=== PATIENT | female | born 1955 | race Caucasian/White ===

== ENCOUNTER 2023-09-23 09:38 | Outpatient (RCR) | payer OTHER, SELFPAY | END 2023-09-23 23:59 | disposition home or self-care (01) | LOC: RST 09:38 | PROVIDERS: ATTENDING PHYSICIAN Physician Assistant Medical | DX: I63.9 Cerebral infarction, unspecified (principal); I69.321 Dysphasia following cerebral infarction; I69.318 Other symptoms and signs involving cognitive functions following cerebral infarction; I69.398 Other sequelae of cerebral infarction; I69.310 Attention and concentration deficit following cerebral infarction; R26.89 Other abnormalities of gait and mobility | CPT/HCPCS: 92507; 97110; 97129; 97130; 97530; 97537 ==

== ENCOUNTER 2023-10-23 06:45 | Outpatient (RCR) | payer OTHER, SELFPAY | END 2023-10-23 23:59 | disposition home or self-care (01) | LOC: RST 06:45 | PROVIDERS: ATTENDING PHYSICIAN Physician Assistant Medical | DX: I69.321 Dysphasia following cerebral infarction (principal); I69.318 Other symptoms and signs involving cognitive functions following cerebral infarction; I69.310 Attention and concentration deficit following cerebral infarction; Z73.6 Limitation of activities due to disability | CPT/HCPCS: 92507; 97110; 97129; 97130; 97530; 97537 ==

== ENCOUNTER 2023-11-18 10:15 | Outpatient (RCR) | payer OTHER, SELFPAY | END 2023-11-18 13:41 | disposition home or self-care (01) | LOC: RST 10:15 | PROVIDERS: ATTENDING PHYSICIAN Physician Assistant Medical | DX: I63.9 Cerebral infarction, unspecified (principal); I69.318 Other symptoms and signs involving cognitive functions following cerebral infarction; I69.321 Dysphasia following cerebral infarction; I69.351 Hemiplegia and hemiparesis following cerebral infarction affecting right dominant side; I69.310 Attention and concentration deficit following cerebral infarction; I69.393 Ataxia following cerebral infarction; I69.311 Memory deficit following cerebral infarction; Z73.6 Limitation of activities due to disability | CPT/HCPCS: 92507; 97129; 97130 ==

== ENCOUNTER 2024-04-23 09:41 | Outpatient (RCR) | payer OTHER, SELFPAY | END 2024-04-23 23:59 | disposition home or self-care (01) | LOC: RST 09:41 | PROVIDERS: ATTENDING PHYSICIAN Specialist; FAMILY PHYSICIAN Physician Assistant Medical | DX: I63.312 Cerebral infarction due to thrombosis of left middle cerebral artery (principal); R41.841 Cognitive communication deficit; R47.02 Dysphasia | CPT/HCPCS: 96125; 97129; 97130 ==

== ENCOUNTER 2024-05-24 10:49 | Outpatient (RCR) | payer OTHER, SELFPAY | END 2024-05-24 23:59 | disposition home or self-care (01) | LOC: ROT 10:49 | PROVIDERS: ATTENDING PHYSICIAN Specialist; FAMILY PHYSICIAN Physician Assistant Medical | DX: M25.531 Pain in right wrist (principal); Z73.6 Limitation of activities due to disability | CPT/HCPCS: 96125; 97018; 97110; 97129; 97130; 97140; 97166; 97535 ==

== ENCOUNTER → 2024-05-28 07:00 | Outpatient (REF) | payer OTHER, SELFPAY | LOC: PAVMRI 07:00 | PROVIDERS: ATTENDING PHYSICIAN Internal Medicine Rheumatology; FAMILY PHYSICIAN Physician Assistant Medical | DX: L40.50 Arthropathic psoriasis, unspecified (principal); M25.531 Pain in right wrist | CPT/HCPCS: 73221 ==

== ENCOUNTER 2024-09-11 20:49 | Inpatient (IN) | payer OTHER, SELFPAY ==
[2024-09-11 15:57] VITALS: BP 99/68
[2024-09-11 16:00] VITALS: BP 99/68
[2024-09-11 16:14] LABS: Glucose - Point of Care 119 mg/dl (70-99)
--- NOTE | 2024-09-11 16:14 | ED.CVA ---
History of Present Illness
General
Chief Complaint: CVA/TIA Symptoms
Source: patient and family
Time Seen by Provider: 09/11/24 16:03
Onset of Stroke Symptoms
Onset of symptoms known: Yes
Date of onset of symptoms: 09/11/24
Time of onset of symptoms: 15:00
History of Present Illness
History of Present Illness:
This patient is a 69-year-old female who is feeling her usual self until approximately 3 PM when she stood up and started feel disoriented. She noted that she felt weak on the right side as well as feeling sweaty and hot. Her caregiver noticed
that she seemed 'disoriented and cloudy and her speech seemed delayed. She was brought to an urgent care, noted to have a 'low-grade fever' and medics were called to transfer patient here. Daughter is at bedside and very knowledgeable about
patient. She states that at baseline she has mild cognitive impairment and short-term memory but today, after 3 PM, she just seems more forgetful and her speech delayed but not slurred. She also had trouble standing. On exam here, patient is
awake alert oriented, and denies any specific complaints. She denies visual changes, numbness, tingling, weakness, or other complaints. She denies recent illness or fever, chest pain, shortness of breath.
Past History
Past History
ED Past Medical History: Asthma, Cancer (Breast carcinoma), CVA, HTN, Hypercholesterolemia, NIDDM, Psychiatric (Major depression) and Other (Psoriatic arthritis, rheumatoid arthritis, concussion August 2022, right knee hematoma)
ED Past Surgical History: Orthopedic (Rotator cuff repair 2011) and Other (Right mastectomy, inguinal herniorrhaphy)
Social History
Tobacco: Other (Distant smoker)
Alcohol: Chronic alcoholic
Drug: None
Personal:
Living: with family
Family History
Family History: Diabetes and Cancer
Phy Exam
Physical Exam
Physical Exam:
GENERAL: Alert , in no apparent distress
EYE: pupils equal and reactive
NECK: Supple, no significant adenopathy.
ENT: o/p clr, mmm.
CARDIAC: Regular rate and rhythm .
LUNGS: Clear breath sounds bilaterally, no acute respiratory distress, no wheezes/rales/rhonchi
ABDOMEN: Soft, without focal tenderness, no r/g, no cvat
NEUROLOGICAL: Alert and oriented to person and place but not month which is typical for her, cranial nerves II through XII intact, [id number] normal, motor 5 out of 5, sensory intact, mild aphasia (baseline)
SKIN: Warm and dry, skin intact.
MUSCULOSKELETAL: No edema, well perfused.
PSYCH: Normal and appropriate interaction.
NIH Stroke Score
Level of Consciousness: 0 - Alert
LOC questions: 1-Answers one correctly
LOC Commands: 0-Performs both correctly
Best Gaze: 0-Normal
Visual Gonzalez: 0=Normal, no visual loss
Facial palsy: 0=Normal, symmetrical
Motor - Right Arm: 0=No drift 10 seconds
Motor - Left Arm: 0=No drift 10 seconds
Motor - Right Le-No drift 5 seconds
Motor - Left Le-No drift 5 seconds
Limb Ataxia: 0-Absent
Sensation: 0-Normal
Best Language: 1-Mild aphasia
Dysarthria: 1-Mild slurring
Extinction and Inattention: 0-No abnormality
Total Score:: 3
Course
Orders/Labs/Results
Orders:
Orders
09/11/24 16:01
EKG [Electrocardiogram (*1)] Urgent
Reason for Study: Fatigue / Weakness
EKG- Treatment ONCE
09/11/24 16:02
Alcohol Urgent
Cardiovascular Evaluation Urgent
Comment: ADDON
Complete Blood Count/With Diff Urgent
Comprehensive Metabolic Panel Urgent
Glycohemoglobin (HgbA1c) Urgent
09/11/24 16:10
CT HEAD STROKE ALERT W/o Cont Stat
Comment:
Reason For Exam: aphasia, weakness
09/11/24 16:17
EKG- Treatment ONCE
09/11/24 16:38
Add On- LAB Urgent
Tests Added?: Alcohol
09/11/24 16:41
CT Head & Neck Angio W/wo IV Urgent
Comment:
Reason For Exam: aphasia
09/11/24 19:28
Hydrocodone 7.5/APAP 325 [[place] 7.5/325] 1 tablet PO NOW STA
09/11/24 20:25
Admit/Transfer Patient As Directed
Co-Sign Provider:
Level of Care: Inpatient admission
Assign to:: Telemetry
Physician / Group: Hospitalist
Diagnosis: Change of mental status
Reason for Telemetry: CVA/TIA
Date to Stop Telemetry: 09/14/24
Time to Stop Telemetry: 11:00
Reason for Hospitalization: Change of mental status
Expected length of stay greater than two midnights?: Yes
ELOS- Estimated Length of Stay in days: 3
I certify the patient meets the requirements for IP care: Yes
PRN Pain Medication Management As Directed
May give lesser potent ordered pain med per pt: Yes
preference::
Protocol:: Medication orders for pain may be administered in a
manner that supports deferring to patient preference
when the pt is:
- Requesting an ordered lesser potent pain medication.
Least to most potent pain medications are defined
as: acetaminophen < NSAID < tramadol < opioids
(morphine, oxycodone, hydromorphone).
- Requesting a lesser dose of the same medication IF
ORDERED.
- Requesting a less intrusive route of administration
if both routes are prescribed by the provider (PO <
IV).
09/11/24 20:27
Code Status As Directed
Resuscitation Status: Full Code
09/11/24 20:35
Fentanyl, Urine Routine
Urinalysis Reflex To Culture Urgent
Date Specimen was Collected: 09/11/24
Time Specimen was Collected: 20:33
Urine Drug Abuse Screen Routine
Date Specimen was Collected: 09/11/24
Time Specimen was Collected: 20:33
09/11/24 22:57
Acetaminophen [Tylenol/Feverall] 650 mg RECTAL Q4HPRN PRN
Acetaminophen [Tylenol] 650 mg PO Q4HPRN PRN
Donepezil HCl [Aricept] 10 mg PO HS
Gabapentin [Neurontin] 400 mg PO TID
Hydrocodone 7.5/APAP 325 [[place] 7.5/325] 1 tablet PO TIDPRN PRN
Thc See Dose Instructions TOPICAL TIDPRN PRN
09/11/24 22:57
Case Management Consult ONCE
Case Management Consult: Discharge Planning
Comment: stroke/tia
DIETARY CONSULT Routine
Reason for Consult: stroke/TIA
Show Design Supervisor Urgent
Activity As Directed
Activity Level: With Assistance
NIH Stroke Scale As Directed
Directions: Per protocol
Comment: every shift and with any change in condition or mental status
Neurological Checks As Directed
Frequency: q4h
Additional Instructions:: q4h x 24h upon admission to the floor, then qshift & with any change in condition
and mental status
Patient Education As Directed
Type: Stroke education packet
Comment: provide to patient and family
Pneumatic Compression Sleeves As Directed
Type: Knee high
Swallow Screening CVA/TIA ONLY As Directed
Comment: NPO until swallowing screening completed
If patient FAILS swallow screening:: NPO, Speech Therapy consult, Aspiration Precautions
If patient PASSES swallow screening, diet:: Regular
Above diet order entered?: Yes- passed screening
Vital Signs As Directed
Frequency: Per unit guidelines
Ot Eval And Treat Routine
Pt Eval And Treat Routine
Treatment: eval gait
Activity Level: With Assistance
Speech Therapy Eval & Treat Routine
DX Deep Vein Thrombosis Video Routine
09/12/24 06:46
MR Brain Without Contrast Routine
Reason For Exam: aphasia
OK for patient to be off Cardiac Monitoring for MRI: No
Recent pill cam endoscopy?: No
09/12/24 07:21
Basic Metabolic Panel IN AM
Cardiovascular Evaluation IN AM
Complete Blood Count/No Diff IN AM
09/12/24 08:00
Amlodipine [Norvasc] 5 mg PO DAILY
Aspirin Low Dose EC [Aspir Low (Enteric Coated)] 81 mg PO DAILY
Cholecalciferol (Vitamin D3) [VITAMIN D3 (cholecalciferol)] 50 mcg PO DAILY
Cyanocobalamin [Vitamin B-12] 1,000 mcg PO DAILY
Escitalopram Oxalate [Lexapro] 20 mg PO DAILY
METFORMIN HCl [Glucophage] 1,000 mg PO DAILY
09/12/24 18:00
Atorvastatin [Lipitor] 80 mg PO QPM
METFORMIN HCl [Glucophage] 500 mg PO QPM
09/14/24 11:00
DC Protocol for Telemetry ONCE
Abnormal Lab Results
09/11/24 09/11/24 09/11/24
16:02 16:12 20:35
WBC 13.5 H 10^3/uL
(4.8-10.8)
MCHC 31.6 L g/dL
(33.0-37.0)
Abs Immat Gran (auto) 0.1 H 10^3/uL
(0-0.05)
Absolute Neuts (auto) 11.7 H 10^3/uL
(1.4-6.5)
Absolute Lymphs (auto) 0.5 L 10^3/uL
(1.2-3.4)
Absolute Monos (auto) 1.1 H 10^3/uL
(0.1-0.6)
Neutrophils % 86.9 H %
(42.2-75.2)
Lymphocytes % 3.5 L %
(20.5-51.1)
BUN 22 H mg/dl
(7-17)
Glucose 128 H mg/dl
(70-99)
Hemoglobin A1c 6.5 H %
(4.0-5.6)
Urine Opiates Screen Positive H
(Negative)
POC Glucose 119 H mg/dl
(70-99)
09/11/24 16:02
09/11/24 16:02
Vital Signs
Initial and Last Documented VS:
Initial Vital Signs
Temp Pulse Resp BP Pulse Ox
98.0 F 103 12 99/68 95
09/11/24 15:57 09/11/24 15:57 09/11/24 15:57 09/11/24 15:57 09/11/24 15:57
Last Documented Vital Signs
Temp Pulse Resp BP Pulse Ox
98.6 F 79 18 122/73 98
09/12/24 07:35 09/12/24 10:58 09/12/24 07:35 09/12/24 10:58 09/12/24 07:35
*Critical Care Note
Total Time (30-74mins, 75-104mins- exclusive of procedures): 30
Update Note
Update Note:
Patient presents to the Emergency Department with weakness and disorientation
Number and Complexity of Problems Addressed at the Encounter
� Chronic conditions affecting care:
� Acute Exacerbation and/or Progression of Chronic Illness:
� Differential Diagnosis includes: But not limited to infection, TIA, CVA, electrolyte disorder, etc. etc.
Amount and/or Complexity of Data to be Reviewed and Analyzed
� I performed an independent evaluation of and my interpretation is:
EKG:Read by me, sinus tachycardia, normal axis, no acute ischemia
CT:Aspect score: 10
No intracranial hemorrhage
Atrophy with nonspecific white matter changes
Full report to follow (LISSA dalal)
Xrays:
Laboratory Studies:Nonspecific leukocytosis
Other:
� Review of other/old records reveals:
� Clinical information was obtained by an independent historian: Daughter who is bedside
� Prescriptions/Medications Considered but not given:
� Further testing considered but not performed:
Risk of Complications and/or Morbidity or Mortality of Patient Management
� Social determinants of health affecting care:
� Discussion with other providers (PCP, Hospitalists, Consultants, etc):
� Escalation of care including admission/observation vs risk of discharge considered:Case d/w daughter as pt goes to CAT scan. She is aware that patient is not a candidate for tPA or other intervention acutely. Case also
discussed with neurology who asked that I add a UDS and alcohol to her testing. Does not recommend adding Plavix at this time until she reviews platelet count pending. She appreciated mild dysarthria which I did not appreciate, and may be
intermittent. Her mild aphasia is baseline as per daughter. Given lack of NIH of greater than 6 or newly disabling symptoms he is not a candidate for thrombolytics at this time. Patient will be admitted for further workup.
ED Attending Note
-
Portions of this chart may have been created with voice recognition software.� Occasional wrong word or��sound alike� substitutions may have occurred due to the inherent limitations of voice recognition software.
Discharge Plan
Departure
Patient Disposition: Admit
Date of Disposition: 09/11/24
Time of Disposition: 17:17
Admit to: Telemetry
Presentation/result/management discussed w/ accepting MD/DO: Hospitalist
Condition: Good
Discharge Problem:
Encephalopathy
Interventions
Interventions:
*Risk Screen - Suicide Last Done: 09/12/24 02:08
*General Assessment Last Done: 09/11/24 16:03
*Neglect/Abuse Screening Last Done: 09/11/24 16:03
*ED COVID-19 Vaccine History Last Done: 09/12/24 02:08
*Nursing Disposition Last Done: 09/11/24 23:08
ED- Pulmonary Assessment Last Done: 09/11/24 16:05
ED- Neurological Assessment Last Done: 09/11/24 16:05
ED- Cardiac Assessment Last Done: 09/11/24 16:05
ED Swallowing Screen Last Done: 09/11/24 17:34
Discharge Date and Time
Discharge Date/Time: 09/11/24 23:09
[2024-09-11 16:18] LABS: % Basophils 0.5 % (0-2); % Eosinophils 0.7 % (0-6); % Immature Granulocytes 0.4 % (0-0.5); % Lymphocytes 3.5 % (20.5-51.1); % Neutrophils 86.9 % (42.2-75.2); Absolute Basophils 0.1 10^3/uL (0-0.2); Absolute Eosinophils 0.1 10^3/uL (0-0.7); Absolute Immature Granulocytes 0.1 10^3/uL (0-0.05); Absolute Lymphocytes 0.5 10^3/uL (1.2-3.4); Absolute Monocytes 1.1 10^3/uL (0.1-0.6); Absolute Neutrophils 11.7 10^3/uL (1.4-6.5); Hematocrit 39.5 % (37.0-47.0); Hemoglobin 12.5 g/dL (12.0-16.0); Mean Corp Hgb Conc. 31.6 g/dL (33.0-37.0); Mean Corpuscular Hgb 29.1 pg (27.0-31.0); Mean Corpuscular Volume 92.1 fL (81.0-99.0); Mean Platelet Volume 9.2 fL (7.4-10.4); Nucleated Red Blood Cells % 0 %; Platelet Count 302 10^3/uL (130-400); Red Blood Cell Count 4.29 10^6/uL (4.20-5.40); Red Cell Dist. Width 12.9 % (11.5-14.5); White Blood Cell Count 13.5 10^3/uL (4.8-10.8)
[2024-09-11 16:33] LABS: ALT (SGPT) 21 U/L (0-35); AST (SGOT) 35 U/L (14-36); Albumin 4.5 g/dl (3.5-5.0); Alkaline Phosphatase 59 U/L (38-126); Blood Urea Nitrogen 22 mg/dl (7-17); Calcium 9.2 mg/dl (8.4-10.2); Carbon Dioxide 28 mmol/L (22-30); Chloride 99 mmol/L (98-107); Glucose 128 mg/dl (70-99); Potassium 4.1 mmol/L (3.5-5.1); Sodium 137 mmol/L (135-145); Total Bilirubin 0.7 mg/dl (0.2-1.3); Total Protein 6.9 g/dl (6.3-8.2); eGFR > 60.00
--- NOTE | 2024-09-11 16:37 | CON.NEURO ---
Consultation
Order
Date of Consultation: 09/11/24
Requesting Provider: Dot Still MD
Reason for Consult: Stroke alert
Called in: 16:10
Neurology Consultation Note.
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
According to patient's daughter the patient became confused during a conversation yesterday around 11:30 AM. She subsequently went home, slept, and continued to feel the same this morning. Today, the patient's caregiver noticed chills, significant
weakness, and inability to ambulate to the bathroom. Flynn Peterson reports no complaints. She is not sure of why she is in the hospital
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 Souza.
Winkler has been experiencing pain in her right wrist and is under pain management at [facility]
ER VS: 99/68, 103, afebrile
EKG: Sinus tachycardia, QTc Int : 441 ms
PDMP: Hydrocodone-Acetamin 7.5-325 62 tabs filled in on 08/29/2024, 28 tabs filled in on 08/29/2024 90 pills filled in on 07/31/2024, 07/02/2024
Labs: Glucose�128, normal sodium, WBCs�13.5, platelets�302,
CT head wo contrast�no acute infarcts, mild to moderate generalized atrophy
CTA head/neck�pending
PMH: R breast cancer, left lentiform nucleus stroke with residual aphasia (05/2023), HTN, DLP, DM, opioid dependence, polyneuropathy, EPIFANIO, Psoriatic arthritis, OA
PSH: R mastectomy; Right shoulder arthroscopy with arthroscopic labral debridement, rotator cuff repair and no subacromial decompression, inguinal hernia repair,
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
FH: Mother�dementia in her 80s
All:NKDA
ROS: Constitutional: Negative. Negative for chills, fever and unexpected weight change.
HENT: Negative for ear pain, hearing loss, tinnitus and trouble swallowing.
Eyes: Negative. Negative for photophobia, pain and visual disturbance.
Respiratory: Negative for cough, choking and shortness of breath.
Cardiovascular: Negative for chest pain, palpitations and leg swelling.
Gastrointestinal: Negative for abdominal pain and vomiting.
Endocrine: Negative. Negative for cold intolerance.
Genitourinary: Negative for dysuria, flank pain and urgency.
Musculoskeletal: Positive for right wrist pain
Skin: Negative for rash.
Allergic/Immunologic: Negative. Negative for immunocompromised state.
Neurological: Positive for chronic aphasia, change in ambulation
Psychiatric/Behavioral: Positive for worsening of chronic confusion
General: Well developed. In no acute distress.
Cardio: Regular rate and rhythm without murmur. Extremities are without cyanosis or edema.
Neuro:
Mental Status: Alert, oriented to name, location. Follows simple requests across midline. Mild expressive aphasia. Comprehension is intact. Nonfluent. No hemineglect.
Cranial Nerves: Pupils are equally round and reactive to light. EOMs full. Visual stringer full to confrontation. No ptosis. No nystagmus. V1-V3 intact to light touch and pinprick bilaterally, symmetric. Face symmetric. Normal hearing AU. The
palate elevated well. SCMs and traps 5/5. Tongue midline. Mild dysarthria.
Motor: Normal bulk and tone. No pronator or arm drift. Strength 5/5 throughout. No clonus.
Sensory: Negative extinction to DSS
Coordination: No dysmetria
Gait: deferred
Assessment and Plan:
I. Encephalopathy. Differential diagnosis includes toxic versus vascular versus nutrient degenerative. Not a candidate for IV thrombolysis due to lack of new focal deficits.
II. History of left lentiform nucleus stroke(2022)
III. Brain atrophy. Differential diagnosis posttraumatic, toxic, neurodegenerative.
-Continue Telemetry monitoring.
-Avoid cerebral hypoperfusion
-Brain MRI without epifanio
-Please follow-up CTA results
-Please check EtOH level, urine tox, UA urine culture
-Start thiamine
-Continue aspirin 81 mg once a day
-PT.
-DVT prophylaxis.
I personally reviewed all radiology and labs along with past medical records pertinent to current medical problems. Total time spent in patient care is 60 minutes.
Thank you for allowing us to participate in the care of this patient. We will continue to follow. Please do not hesitate to contact us with any questions or concerns.
Subjective/Objective
Subjective Data
Date of Service: September 11, 2024
Objective Data
Vital Signs
Temp Pulse Resp BP Pulse Ox
36.7 C 99 20 99/68 98
09/11/24 15:57 09/11/24 16:04 09/11/24 16:04 09/11/24 16:00 09/11/24 16:05
Lab Results
09/11/24 16:02
09/11/24 16:02
Sodium 137 mmol/L (135-145) 09/11/24 16:02
Potassium 4.1 mmol/L (3.5-5.1) 09/11/24 16:02
BUN 22 mg/dl (7-17) H 09/11/24 16:02
Glucose 128 mg/dl (70-99) H 09/11/24 16:02
Calcium 9.2 mg/dl (8.4-10.2) 09/11/24 16:02
Patient Allergies
No Known Allergies Allergy (Unverified 06/21/23 19:12)
Medications
-
Home Medications
�Medication �Instructions �Recorded
amlodipine 2.5 mg tablet 5 mg PO DAILY Blood Pressure 10/30/11
escitalopram oxalate 5 mg tablet 5 mg PO DAILY Mental Health/Anxiety 06/22/23
(Lexapro)
propranolol 60 mg capsule,24 60 mg PO HS Blood Pressure 06/22/23
hr,extended release (Inderal LA)
atorvastatin 40 mg tablet 80 mg (2 x 40 mg) PO QPM Heart 06/26/23
disease/condition #30 tabs
clopidogrel 75 mg tablet 75 mg PO DAILY #20 tabs 06/26/23
metformin 500 mg tablet 500 mg PO BID@0800,1700 #60 tabs 06/26/23
Vital Signs and Labs
-
Vital Signs and Labs:
Vital Signs
Temp Pulse Resp BP Pulse Ox
36.7 C 99 20 99/68 98
09/11/24 15:57 09/11/24 16:04 09/11/24 16:04 09/11/24 16:00 09/11/24 16:05
Lab Results
09/11/24 16:02
09/11/24 16:02
Sodium 137 mmol/L (135-145) 09/11/24 16:02
Potassium 4.1 mmol/L (3.5-5.1) 09/11/24 16:02
BUN 22 mg/dl (7-17) H 09/11/24 16:02
Glucose 128 mg/dl (70-99) H 09/11/24 16:02
Calcium 9.2 mg/dl (8.4-10.2) 09/11/24 16:02
Home Medications
-
Home Medications
Thc 1 applic topical TIDPRN PRN arthirits 09/11/24
amlodipine 5 mg tablet 5 mg PO DAILY 09/11/24
aspirin 81 mg tablet,delayed release 81 mg PO DAILY 09/11/24
atorvastatin 80 mg tablet 80 mg PO QPM 09/11/24
cholecalciferol (vitamin D3) 50 mcg (2,000 unit) tablet (Vitamin D3) 50 mcg PO DAILY 09/11/24
cyanocobalamin (vitamin B-12) 1,000 mcg tablet 1,000 mcg PO DAILY 09/11/24
donepezil 10 mg tablet 10 mg PO HS 09/11/24
escitalopram oxalate 20 mg tablet 20 mg PO DAILY 09/11/24
gabapentin 400 mg capsule 400 mg PO TID 09/11/24
hydrocodone 7.5 mg-acetaminophen 325 mg tablet 1 tab PO TIDPRN PRN severe pain 09/11/24
metformin 500 mg tablet 1,000 mg PO DAILY 09/11/24
metformin 500 mg tablet 500 mg PO QPM 09/11/24
[2024-09-11 17:00] VITALS: BP 108/72
[2024-09-11 17:33] LABS: Alcohol None Detected
[2024-09-11 18:00] VITALS: BP 93/73
[2024-09-11 18:40] LABS: HDL Cholesterol 84 mg/dl; LDL Cholesterol, Calculated 59 mg/dl; Total Cholesterol 157 mg/dl (50-199); Triglyceride 71 mg/dl (10-149); Very Low Density Lipoprotein 14 mg/dl (0-30)
[2024-09-11] MEDS: NORCO 7.5/325 1 TABLET PO (19:33)
--- NOTE | 2024-09-11 19:50 | HPS.HSE ---
Family Physician
-
Family Physician: Yareli Mckeon
Chief Complaint
-
Confusion
History of Present Illness
69-year-old woman who was feeling her usual self until approximately 3 PM when she stood up and started feel disoriented. She felt weak on the right side as well as feeling sweaty and hot. Her caregiver noticed that she seemed 'disoriented and
cloudy and her speech seemed delayed. She was brought to an urgent care, noted to have a 'low-grade fever' and medics were called to transfer patient here. Daughter states that at baseline she has mild cognitive impairment and short-term memory
but today, after 3 PM, she just seems more forgetful and her speech delayed but not slurred. She also had trouble standing. Patient now is awake alert oriented, and denies any specific complaints. She denies visual changes, numbness, tingling,
weakness, or other complaints. She denies recent illness or fever, chest pain, shortness of breath. CT in ED showed:
There are no acute abnormalities.
There is no intracranial hemorrhage.
There is no edema or mass effect to suggest neoplasm.
There are no abnormal extra-axial fluid collections.
There are no focal areas of diminished density to suggest infarct.
There is diffuse cortical atrophy as evidenced by prominence of the CSF spaces.
IMPRESSION:
There are no acute intracranial abnormalities.
There is moderate diffuse cortical atrophy with moderate nonspecific white matter changes as described above.
Patient seen by neurology in the ED. Neurology stated:
'I. Encephalopathy. Differential diagnosis includes toxic versus vascular versus nutrient degenerative. Not a candidate for IV thrombolysis due to lack of new focal deficits.
II. History of left lentiform nucleus stroke(2022)
III. Brain atrophy. Differential diagnosis posttraumatic, toxic, neurodegenerative.
-Continue Telemetry monitoring.
-Avoid cerebral hypoperfusion
-Brain MRI without more
-Please follow-up CTA results
-Please check EtOH level, urine tox, UA urine culture
-Start thiamine
-Continue aspirin 81 mg once a day
-PT.
-DVT prophylaxis.'
Patient continued to be non-focal and at baseline during my exam.
Medical History
Past Medical History
Past Medical History: Reports Other
Additional Past Medical History:
Asthma,
Breast carcinoma
CVA,
essential HTN,
Hypercholesterolemia,
NIDDM,
Major depression
Psoriatic arthritis,
rheumatoid arthritis,
concussion August 2022,
right knee hematoma
Rotator cuff repair 2011
Right mastectomy,
inguinal herniorrhaphy
Atrophic vaginitis
Primary osteoarthritis of both knees
Gait abnormality
Foot drop, left
Neuropathic pain
Cognitive impairment
Fatty liver
Low vitamin D level
Urgency incontinence
Past Surgical History: Reports Other
Additional Past Surgical History:
See above
Social History
Tobacco: Non-smoker
Alcohol: None
Drug: None
Personal:
Living: With Family
Family History
Family History: Not pertinent
Allergies / Home Medications
Allergies reflects when Allergies were last updated in [employer].
Home Medications with original date entered in [employer]
Allergy/Medication List:
Allergies
Allergy/AdvReac Type Severity Reaction Status Date / Time
No Known Allergies Allergy Unverified 06/21/23 19:12
Home Medications
Thc 1 applic topical TIDPRN PRN arthirits 09/11/24
amlodipine 5 mg tablet 5 mg PO DAILY 09/11/24
aspirin 81 mg tablet,delayed release 81 mg PO DAILY 09/11/24
atorvastatin 80 mg tablet 80 mg PO QPM 09/11/24
cholecalciferol (vitamin D3) 50 mcg (2,000 unit) tablet (Vitamin D3) 50 mcg PO DAILY 09/11/24
cyanocobalamin (vitamin B-12) 1,000 mcg tablet 1,000 mcg PO DAILY 09/11/24
donepezil 10 mg tablet 10 mg PO HS 09/11/24
escitalopram oxalate 20 mg tablet 20 mg PO DAILY 09/11/24
gabapentin 400 mg capsule 400 mg PO TID 09/11/24
hydrocodone 7.5 mg-acetaminophen 325 mg tablet 1 tab PO TIDPRN PRN severe pain 09/11/24
metformin 500 mg tablet 1,000 mg PO DAILY 09/11/24
metformin 500 mg tablet 500 mg PO QPM 09/11/24
Review of Systems
-
History Source: Patient
A 12 point ROS was completed and negative except as noted: Yes
Physical Exam
Vital Signs
Vital Signs
Temp Pulse Resp BP Pulse Ox
98.0 F 91 16 93/73 98
09/11/24 15:57 09/11/24 19:30 09/11/24 18:30 09/11/24 18:00 09/11/24 16:05
Physical Exam
General: Well Developed, Well Nourished, No Apparent Distress, Comfortable and Conversant
HEENT: NormoCephalic, Atraumatic, Nose Appears Normal and Ears Appear Normal
Respiratory: Clear
Cardiac: S1/S2 and Regular Rhythm
GI: Soft, Non Tender and Non Distended
Musculoskeletal: No Clubbing, No Cyanosis and No Edema
Skin: Warm and Dry; No Rash or Jaundice
Neuro: Awake, Alert, Oriented and AO x 3
Psych: Calm
Laboratory Results
-
09/11/24 16:02
09/11/24 16:02
Laboratory Results
Total Bilirubin 0.7 mg/dl (0.2-1.3) 09/11/24 16:02
AST 35 U/L (14-36) 09/11/24 16:02
ALT 21 U/L (0-35) 09/11/24 16:02
Alkaline Phosphatase 59 U/L (38-126) 09/11/24 16:02
Data Reviewed
-
Lab Data: Labs Reviewed by me
Impression/Plan
-
IMPRESSION:
69 woman with change of mental status and concern for a stroke.
PLAN:
1. Concern for stroke. No symptoms at this point. Patient seen by neurology. Neurology states:
'I. Encephalopathy. Differential diagnosis includes toxic versus vascular versus nutrient degenerative. Not a candidate for IV thrombolysis due to lack of new focal deficits.
II. History of left lentiform nucleus stroke(2022)
III. Brain atrophy. Differential diagnosis posttraumatic, toxic, neurodegenerative.
-Continue Telemetry monitoring.
-Avoid cerebral hypoperfusion
-Brain MRI without more
-Please follow-up CTA results
-Please check EtOH level, urine tox, UA urine culture
-Start thiamine
-Continue aspirin 81 mg once a day
-PT.
-DVT prophylaxis.'
2. BUN/Creat > 20, 22/0.7, likely dehydration
Gentle IV fluids overnight
Dehydration might have activated old stroke symptoms
3. High WBC at 13.5 - on chronic steroids
This is likely from prednisone
No signs of infection
DVTp: SCD
Full code
[2024-09-11 20:49] LABS: Urine Albumin Negative (Neg - Trace); Urine Bilirubin Negative (Negative); Urine Character Clear (Clear); Urine Color Yellow; Urine Glucose Negative (Negative); Urine Ketone Negative (Negative); Urine Leukocyte Negative (Negative); Urine Nitrite Negative (Negative); Urine Occult Blood Negative (Negative); Urine Specific Gravity 1.005 (<1.030); Urine Urobilinogen Negative (Neg - 1+); Urine pH 6.5 (5.0-9.0)
[2024-09-11 21:05] LABS: Amphetamines Negative (Negative); Barbiturates Negative (Negative); Benzodiazepines Negative (Negative); Buprenorphine Negative (Negative); Cocaine Negative (Negative); Marijuana Negative (Negative); Methadone Negative (Negative); Methamphetamines Negative (Negative); Opiates Positive (Negative); Phencyclidine Negative (Negative); Tricyclic Antidepressants Negative (Negative)
[2024-09-11 21:25] LABS: Fentanyl, Urine Negative (Negative)
[2024-09-11 23:12] VITALS: BP 133/74; BMI 21.0
--- NOTE | 2024-09-11 23:12 | PTCARENOTE ---
Pt arrived from ED via stretcher was and pulled over to the bed. Pt is AAOx2, VSS, w/o complaints of pain. Pt is lethargic, tremulous, and unable to follow some commands. RN attempted NIH-7 1-mild slurring, 1- aphasia, 1-didn't know the month,
2-can't lift L leg, 2- can't lift R leg. ECG TECHNICIAN notified- no new orders at this time. Pt has call mayorga within reach.
[2024-09-12] VITALS (8 sets, daily range): BP systolic 103–143; BP diastolic 65–84; PULSE 86–89; O2SAT 94–96
[2024-09-12] MEDS: NEURONTIN PO (01:11)
[2024-09-12] MEDS: ARICEPT PO (01:11)
--- NOTE | 2024-09-12 01:57 | PTCARENOTE ---
Addendum entered by Irina Hinkle RN 09/12/24 05:43:
Pt tested positive for the flu and placed on droplet precautions. RN rechecked oral temp 98.8. Pt is slightly less lethargic. Pt has the call mayorga within reach.
Original Note:
Pt oral temp 102.8. RN took rectal temp 103.4. RN placed ice packs in both armpits. OLYA notified- ordered Of[facility].
[2024-09-12] MEDS: NSS 1000 IV (02:00)
[2024-09-12] MEDS: OFIRMEV 100 IV (02:45)
[2024-09-12 03:13] LABS: COVID-19 Antigen Negative (Negative)
--- NOTE | 2024-09-12 08:48 | W.PN.HOSP.TC ---
Today's Communication/Plan
-
Continue Tamiflu
Obtain PT OT eval
DC planning
Assessment / Plan
Assessment / Plan
Change in mental status more than baseline-suspect toxic encephalopathy with febrile illness and influenza A infection. CT head shows no evidence of acute intracranial abnormalities. Nonfocal grossly. Appreciate neurology input. Continue with
treatments of flu. Check PT eval today.
Acute influenza A infection-associated sepsis. Hypoxic. Clinically no evidence of pneumonia but will obtain at chest x-ray for baseline. Continue with Tamiflu. Continue with symptomatic treatments.
Diabetes mellitus-continue with metformin and sliding scale insulin
Hypertension-continue amlodipine
Hyperlipidemia-continue statin
Dementia on medication-patient confused but no agitation. Follow for any behavioral disturbances.
Full code
Discussed with the and updated the diagnosis and treatment and possibility of discharge later after seen by PT and chest x-ray.
Anticipated Discharge: Today
Subjective/Interval History
-
Date of Service: September 12, 2024
She is alert and oriented to place. Not oriented to day of the month or the year. She has mild cognitive impairment history.
No agitation.
Feels fatigued.
Denies any sore throat, cough, shortness of breath or chest pain.
No nausea vomiting.
Objective Data
-
Labs:
Laboratory Results
09/12/24
07:21
WBC Pending
Hgb Pending
Hct Pending
Plt Count Pending
Sodium Pending
Potassium Pending
Chloride Pending
Carbon Dioxide Pending
BUN Pending
Creatinine Pending
Glucose Pending
Calcium Pending
Vital Signs:
Vital Signs
Temp Pulse Resp BP Pulse Ox
98.6 F 79 18 122/73 98
09/12/24 07:35 09/12/24 07:35 09/12/24 07:35 09/12/24 07:35 09/12/24 07:35
I&O
09/11/24 09/12/24 09/13/24
06:59 06:59 06:59
Intake Total 0 / 0
Balance 0 / 0
Physical Exam
-
General: No Apparent Distress
Respiratory: Clear to Auscultation and Non Labored Respirations; Negative Accessory Resp Muscle Use
Cardiac: Regular Rhythm and S1/S2; Negative Tachycardic
GI: Soft and Nontender
Neuro: Awake, Alert and Oriented
Psych: Calm and Confused; Negative Agitated
Data Reviewed
-
Labs: Labs Reviewed by me
[2024-09-12 08:53] LABS: Hematocrit 31.6 % (37.0-47.0); Mean Corp Hgb Conc. 31.6 g/dL (33.0-37.0); Mean Corpuscular Hgb 29.2 pg (27.0-31.0); Mean Corpuscular Volume 92.4 fL (81.0-99.0); Red Blood Cell Count 3.42 10^6/uL (4.20-5.40); White Blood Cell Count 6.3 10^3/uL (4.8-10.8)
[2024-09-12 08:54] LABS: Blood Urea Nitrogen 14 mg/dl (7-17); Calcium 7.8 mg/dl (8.4-10.2); Carbon Dioxide 26 mmol/L (22-30); Chloride 103 mmol/L (98-107); Estimated Creatinine Clearance 88 ml/min; Glucose 110 mg/dl (70-99); HDL Cholesterol 61 mg/dl; LDL Cholesterol, Calculated 50 mg/dl; Potassium 3.5 mmol/L (3.5-5.1); Sodium 136 mmol/L (135-145); Total Cholesterol 120 mg/dl (50-199); Triglyceride 48 mg/dl (10-149); Very Low Density Lipoprotein 9 mg/dl (0-30); eGFR > 60.00
[2024-09-12 09:45] LABS: Glycohemoglobin (HgbA1c) 6.5 % (4.0-5.6)
[2024-09-12 09:47] LABS: Platelet Count 196 10^3/uL (130-400)
[2024-09-12] MEDS: NEURONTIN 400 MG PO ×3 (10:57→21:07)
[2024-09-12] MEDS: TAMIFLU 75 MG PO ×2 (10:57→20:04)
[2024-09-12] MEDS: GLUCOPHAGE 1000 MG PO (10:58)
[2024-09-12] MEDS: NORVASC 5 MG PO (10:58)
[2024-09-12] MEDS: VITAMIN D3 (cholecalciferol) 50 MCG PO (10:58)
[2024-09-12] MEDS: LEXAPRO 20 MG PO (10:58)
[2024-09-12] MEDS: ASPIR LOW (ENTERIC COATED) 81 MG PO (10:58)
[2024-09-12] MEDS: VITAMIN B-12 1000 MCG PO (10:59)
--- NOTE | 2024-09-12 11:49 | W.PN.NEURO.1 ---
Today's Communication / Plan
-
.
Subjective/Objective
Subjective Data
Date of Service: September 12, 2024
Neurology follow-up note.
24-hour events�febrile up to 39.7 C, transiently hypotensive down to 93/73.
Labs: Influenza A positive, Hb 12.5�10, UA�unremarkable, ua tox-pos for opioids, ETOh -neg.
Brain MRI wo more(08/25/2024) �no acute infarcts, stable minor chronic microvascular white matter ischemic disease. Atrophy.
According to patient's the was 'not as sharp 'even before head trauma in August 2022. The patient's family reportedly took financial affairs following head trauma after realizing that bills were 'piling up '. Mr. Winkler reports no
obvious changes in language following the stroke in May 2023. According to EMR 'daughter called to return for speech therapy reporting that patient has regressed since completing therapy'.
Ms. Winkler stopped driving about a year ago due to getting lost. Patient requires assistance with medication management for about a year due to forgetfulness.
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
PSH: R mastectomy; Right shoulder arthroscopy with arthroscopic labral debridement, rotator cuff repair and no subacromial decompression, inguinal hernia repair,
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
FH: Mother�dementia in her 80s
All:NKDA
ROS: Limited due to aphasia.
General: Well developed. In no acute distress.
Cardio: Regular rate and rhythm without murmur. Extremities are without cyanosis or edema.
Neuro:
Mental Status: Alert, oriented to name. Poor attention, moderate to severe expressive>receptive aphasia.
Cranial Nerves: Pupils are equally round and reactive to light. EOMs full. BTT BL No ptosis. No nystagmus. Face symmetric. Normal hearing AU. The palate elevated well. No dysarthria.
Motor: Moves all limbs antigravity symmetrically spontaneously.
Sensory: Limited exam due to poor attention.
Coordination: No tremors of myoclonic movements.
Gait: deferred
Assessment and Plan:
I. Encephalopathy(infectious, vascular, probably neurodegenerative), clinically worse
II. History of left lentiform nucleus stroke(2022).
III. Influenza A infection
-Avoid cerebral hypoperfusion
-Continue aspirin 81 mg once a day for secondary stroke prophylaxis
-Outpatient neurology follow-up in 1-2 days.
-I have left a message for Mr. Winkler's with a request to return my call to obtain cognitive and functional baseline.
-Please recall neurology services any questions or concerns.
-Outpatient follow-up with [facility].
I personally reviewed all radiology and labs along with past medical records pertinent to current medical problems. Total time spent in patient care is 40 minutes.
Thank you for allowing us to participate in the care of this patient. Please do not hesitate to contact us with any questions or concerns.
Objective Data
Vital Signs
Temp Pulse Resp BP Pulse Ox
37.0 C 79 18 122/73 98
09/12/24 07:35 09/12/24 10:58 09/12/24 07:35 09/12/24 10:58 09/12/24 07:35
Lab Results
09/12/24 07:21
09/12/24 07:21
Sodium 136 mmol/L (135-145) 09/12/24 07:21
Potassium 3.5 mmol/L (3.5-5.1) 09/12/24 07:21
BUN 14 mg/dl (7-17) 09/12/24 07:21
Glucose 110 mg/dl (70-99) H 09/12/24 07:21
Calcium 7.8 mg/dl (8.4-10.2) L 09/12/24 07:21
LDL Cholesterol, Calc 50 mg/dl 09/12/24 07:21
Ur Buprenorphine Cancelled 09/11/24 20:35
Ur Buprenorphine Negative (Negative) 09/11/24 20:35
Patient Allergies
No Known Allergies Allergy (Unverified 06/21/23 19:12)
Vital Signs and Labs
-
Vital Signs and Labs:
Vital Signs
Temp Pulse Resp BP Pulse Ox
37.0 C 79 18 122/73 98
09/12/24 07:35 09/12/24 10:58 09/12/24 07:35 09/12/24 10:58 09/12/24 07:35
Lab Results
09/12/24 07:21
09/12/24 07:21
Sodium 136 mmol/L (135-145) 09/12/24 07:21
Potassium 3.5 mmol/L (3.5-5.1) 09/12/24 07:21
BUN 14 mg/dl (7-17) 09/12/24 07:21
Glucose 110 mg/dl (70-99) H 09/12/24 07:21
Calcium 7.8 mg/dl (8.4-10.2) L 09/12/24 07:21
LDL Cholesterol, Calc 50 mg/dl 09/12/24 07:21
Ur Buprenorphine Cancelled 09/11/24 20:35
Ur Buprenorphine Negative (Negative) 09/11/24 20:35
Medications
-
Medications:
Generic Name Dose Route Start Last Admin
Trade Name Freq PRN Reason Stop Dose Admin
Acetaminophen 650 mg 09/11/24 22:57
Acetaminophen 650 Mg Rectal Suppository RECTAL 10/09/24 22:56
Q4HPRN PRN
RUIZ, mild pain, or temp >100.4F
Acetaminophen 650 mg 09/11/24 22:57
Acetaminophen 325 Mg Tablet PO 10/09/24 22:56
Q4HPRN PRN
RUIZ, mild pain, or temp >100.4F
Hydrocodone Bitart/Acetaminophen 1 tablet 09/11/24 22:57
Hydrocodone 7.5 Mg/Acetaminophen 325 Mg Tablet PO 09/25/24 22:56
TIDPRN PRN
severe pain
Amlodipine Besylate 5 mg 09/12/24 08:00 09/12/24 10:58
Amlodipine 5 Mg Tablet PO 10/10/24 07:59 5 mg
DAILY JOSÉ Administration
Aspirin 81 mg 09/12/24 08:00 09/12/24 10:58
Aspirin 81 Mg (Enteric Coated) Tablet PO 10/10/24 07:59 81 mg
DAILY JOSÉ Administration
Atorvastatin Calcium 80 mg 09/12/24 18:00
Atorvastatin (Lipitor) 80 Mg Tablet PO 10/10/24 17:59
QPM JOSÉ
Cholecalciferol 50 mcg 09/12/24 08:00 09/12/24 10:58
Cholecalciferol (Vitamin D3) 50 Mcg Tablet (2,000 Units) PO 10/10/24 07:59 50 mcg
DAILY JOSÉ Administration
Cyanocobalamin 1,000 mcg 09/12/24 08:00 09/12/24 10:59
Cyanocobalamin 1,000 Mcg Tablet PO 10/10/24 07:59 1,000 mcg
DAILY JOSÉ Administration
Donepezil HCl 10 mg 09/11/24 22:57 09/12/24 01:11
Donepezil Hcl 10 Mg Tablet PO 10/09/24 22:56 Not Given
HS JOSÉ
Escitalopram Oxalate 20 mg 09/12/24 08:00 09/12/24 10:58
Escitalopram 20 Mg Tablet PO 10/10/24 07:59 20 mg
DAILY JOSÉ Administration
Gabapentin 400 mg 09/11/24 22:57 09/12/24 10:57
Gabapentin 400 Mg Capsule PO 10/09/24 22:56 400 mg
TID JOSÉ Administration
Sodium Chloride 1,000 mls @ 75 mls/hr 09/12/24 01:15 09/12/24 02:00
Nss IV 09/12/24 14:34 1,000 mls
.[id number] JOSÉ Administration
Metformin HCl 1,000 mg 09/12/24 08:00 09/12/24 10:58
Metformin 500 Mg Regular Release Tablet PO 10/10/24 07:59 1,000 mg
DAILY JOSÉ Administration
Metformin HCl 500 mg 09/12/24 18:00
Metformin 500 Mg Regular Release Tablet PO 10/10/24 17:59
QPM JOSÉ
Thc Cream 1 Applic 0 applic 09/11/24 22:57
Top Tid Prn TOPICAL
Arthritis TIDPRN PRN
arthirits
Oseltamivir Phosphate 75 mg 09/12/24 04:16 09/12/24 10:57
Oseltamivir (Tamiflu) 75 Mg Capsule PO 09/17/24 03:54 75 mg
BID JOSÉ Administration
Sodium Chloride 0 flush 09/11/24 23:00
Sodium Chloride 0.9% (Flush) Syringe IV 10/09/24 22:59
PER PROTOCOL JOSÉ
Home Medications
-
Home Medications
Thc 1 applic topical TIDPRN PRN arthirits 09/11/24
amlodipine 5 mg tablet 5 mg PO DAILY 09/11/24
aspirin 81 mg tablet,delayed release 81 mg PO DAILY 09/11/24
atorvastatin 80 mg tablet 80 mg PO QPM 09/11/24
cholecalciferol (vitamin D3) 50 mcg (2,000 unit) tablet (Vitamin D3) 50 mcg PO DAILY 09/11/24
cyanocobalamin (vitamin B-12) 1,000 mcg tablet 1,000 mcg PO DAILY 09/11/24
donepezil 10 mg tablet 10 mg PO HS 09/11/24
escitalopram oxalate 20 mg tablet 20 mg PO DAILY 09/11/24
gabapentin 400 mg capsule 400 mg PO TID 09/11/24
hydrocodone 7.5 mg-acetaminophen 325 mg tablet 1 tab PO TIDPRN PRN severe pain 09/11/24
metformin 500 mg tablet 1,000 mg PO DAILY 09/11/24
metformin 500 mg tablet 500 mg PO QPM 09/11/24
--- NOTE | 2024-09-12 11:55 | PTOTSP ---
Speech therapy
Presentation: Patient shared she has difficulty with word-finding (expressive aphasia), slurred speech (dysarthria), and hoarse voicing. Her communicative abilities were mildly impacted by this but her speech was intelligible. Patient shared
cognition/ memory deficits which are new ~2 years.
Swallowing Function: SHEARING MACHINE OPERATOR observed patient with several bites of cracker, puree, and sips of thin liquids (straw) in which patient appeared to tolerate as she did not exhibit any overt clinical s/sx of aspiration or difficulty with mastication/
manipulation. Patient denied dysphagia complaints.
SHEARING MACHINE OPERATOR observed RN administer medications whole with thin liquids in which patient appeared to tolerate.
Recommendations:
1) Regular consistency solids and thin liquids
2) Aspiration precautions
3) medications as tolerated
4) speech and language evaluation
5) cognitive evaluation
Plan: SHEARING MACHINE OPERATOR will continue to follow; pending hospitalization.
[2024-09-12] MEDS: NORCO 7.5/325 1 TABLET PO (14:07)
--- NOTE | 2024-09-12 16:32 | CM ---
Alert awake oriented patient who lives with her Ted who lives in a 1 story home with 2 steps to enter.She is independent in driving and in all activities of daily living.Will need PT OT for dc planning
CAne
[facility]N/ No SNF
Pharmacy [facility]
PCP Dr Mckeon
PLAN Needs PT OT for dc plan
[2024-09-12] MEDS: LIPITOR 80 MG PO (16:48)
[2024-09-12] MEDS: GLUCOPHAGE 500 MG PO (16:50)
[2024-09-12] MEDS: TYLENOL PO (17:13)
[2024-09-12] MEDS: ARICEPT 10 MG PO (20:04)
[2024-09-12] MEDS: TYLENOL 650 MG PO (20:05)
[2024-09-13 03:44] VITALS: BP 127/78
[2024-09-13] MEDS: TYLENOL 650 MG PO (03:56)
[2024-09-13 06:55] VITALS: BP 105/75
--- NOTE | 2024-09-13 08:56 | W.PN.HOSP.TC ---
Today's Communication/Plan
-
DC planning based on PT eval from today
Assessment / Plan
Assessment / Plan
Change in mental status more than baseline-suspect toxic encephalopathy with febrile illness and influenza A infection. CT head shows no evidence of acute intracranial abnormalities. Nonfocal grossly. Appreciate neurology input. Continue with
treatments of flu. According to the daughter today mom is better with her cognition.
Acute influenza A infection-associated sepsis. Not hypoxic. Chest x-ray without evidence of pneumonia. Continue with Tamiflu 5-day course. Continue with symptomatic treatments.
Diabetes mellitus-continue with metformin and sliding scale insulin
Hypertension-continue amlodipine
Hyperlipidemia-continue statin
Dementia on medication-patient confused but no agitation. Follow for any behavioral disturbances.
Full code
PT eval yesterday recommended rehab but today patient is improved. Will follow PT recommendations again from today and depending we will have a discharge plan.
Medically stable for discharge
Anticipated Discharge: Today
Subjective/Interval History
-
Date of Service: September 13, 2024
Patient needs improved. Voices no specific complaints. No chills. Denies any shortness of breath.
Improved fever curve.
Objective Data
-
Vital Signs:
Vital Signs
Temp Pulse Resp BP Pulse Ox
100.6 F H 82 17 127/78 95
09/13/24 03:44 09/13/24 03:44 09/13/24 03:44 09/13/24 03:44 09/13/24 03:44
I&O
09/12/24 09/13/24 09/14/24
06:59 06:59 06:59
Intake Total 0 / 0 1919
Balance 0 / 0 1919
Review of Systems
-
EENT: Denies Sore Throat
Respiratory: Denies Cough or Trouble Breathing
Cardiac: Denies Chest Pain
Abdomen/GI: Denies Nausea or Vomiting
Physical Exam
-
General: Comfortable
Respiratory: Clear to Auscultation and Non Labored Respirations; Negative Wheezes, Crackles or Accessory Resp Muscle Use
Cardiac: Regular Rhythm and S1/S2
Neuro: Awake, Alert and Oriented
Psych: Calm
[2024-09-13] MEDS: ASPIR LOW (ENTERIC COATED) 81 MG PO (09:52)
[2024-09-13] MEDS: NORVASC 5 MG PO (09:58)
[2024-09-13] MEDS: VITAMIN B-12 1000 MCG PO (09:59)
[2024-09-13] MEDS: GLUCOPHAGE 1000 MG PO (09:59)
[2024-09-13] MEDS: VITAMIN D3 (cholecalciferol) 50 MCG PO (10:00)
[2024-09-13] MEDS: TAMIFLU 75 MG PO (10:00)
[2024-09-13] MEDS: NEURONTIN 400 MG PO (10:00)
[2024-09-13] MEDS: LEXAPRO 20 MG PO (10:01)
[2024-09-13 11:51] VITALS: BP 112/67
[2024-09-13] MEDS: NORCO 7.5/325 1 TABLET PO (13:43)
[2024-09-13 15:07] VITALS: BP 108/70
[2024-09-13 16:21] VITALS: BP 112/68; PULSE 75; O2SAT 97
--- NOTE | 2024-09-14 18:12 | W.DCSUMMARY ---
Discharge Summary
Discharge Data
Date of Admission: 09/11/24
Date of Discharge: 09/13/24
-
Pending Results: No
Hospital Course
Primary diagnosis:
Change in mental status secondary to encephalopathy
Acute influenza A infection
Secondary diagnosis:
Diabetes mellitus type 2
Essential hypertension
Hyperlipidemia
Dementia
Hospital course:
Patient with a baseline cognitive impairment was brought in because of change in mental status. She was confused more than normal. She was noted to have influenza A infection with associated sepsis. She was not hypoxic. There was no evidence of
pneumonia. She was treated symptomatically as well as with Tamiflu with resolution of fever and sepsis parameters and also improvement in her cognitive status. She was seen by PT and was discharged home with home health.
Discharge Plan
-
Patient Disposition: Home with Home Care
Discharge Diagnosis/Procedures: Change in mental status more than baseline-suspect toxic encephalopathy
Acute influenza A infection
Diet: Diabetic, Carb Controlled
Activity: As tolerated
Driving Restrictions: No driving
Bathing Restrictions: None
Other Services: VN and PT
Referrals:
Yareli Mckeon PA-C [Family Provider] - in less than 1 week
Prescriptions:
New
oseltamivir [Tamiflu] 75 mg capsule
75 mg PO BID Qty: 7 0RF
Continued
metformin 500 mg Tablet
500 mg PO QPM
atorvastatin 80 mg Tablet
80 mg PO QPM
donepezil 10 mg Tablet
10 mg PO HS
gabapentin 400 mg Capsule
400 mg PO TID
cyanocobalamin (vitamin B-12) 1,000 mcg Tablet
1,000 mcg PO DAILY
amlodipine 5 mg Tablet
5 mg PO DAILY
aspirin 81 mg Tablet,Delayed Release (Dr/Ec)
81 mg PO DAILY
hydrocodone-acetaminophen 7.5-325 mg Tablet
1 tab PO TIDPRN PRN (Reason: severe pain)
escitalopram oxalate 20 mg Tablet
20 mg PO DAILY
cholecalciferol (vitamin D3) [Vitamin D3] 50 mcg (2,000 unit) Tablet
50 mcg PO DAILY
Thc cream
1 applic topical TIDPRN PRN (Reason: arthirits)
Rx Instructions:
wrists
metformin 500 mg tablet
1,000 mg PO DAILY
Discharge Orders:
Discharge Patient (As Directed); Ordered 09/13/24
Ordered By: João Llanos
Discharge Date and Time
Discharge Date/Time: 09/13/24 17:17
Print Language: [place]ET[place]
== END 2024-09-13 17:17 | disposition home health service (06) | DRG 871 ==
LOC: 4 EAST ACU 20:49
PROVIDERS: Nurse Practitioner Family; ADMITTING PHYSICIAN Internal Medicine; ATTENDING PHYSICIAN Internal Medicine; EMERGENCY PHYSICIAN Emergency Medicine; FAMILY PHYSICIAN Physician Assistant Medical; OTHER PHYSICIAN Psychiatry & Neurology Neurology
DX: A41.9 Sepsis, unspecified organism (principal); G92.9 Unspecified toxic encephalopathy; F03.93 Unspecified dementia, unspecified severity, with mood disturbance; J10.1 Influenza due to other identified influenza virus with other respiratory manifestations; E11.40 Type 2 diabetes mellitus with diabetic neuropathy, unspecified; E78.00 Pure hypercholesterolemia, unspecified; I10 Essential (primary) hypertension; J45.909 Unspecified asthma, uncomplicated; M17.0 Bilateral primary osteoarthritis of knee; M21.372 Foot drop, left foot; R41.89 Other symptoms and signs involving cognitive functions and awareness; K76.0 Fatty (change of) liver, not elsewhere classified; E55.9 Vitamin D deficiency, unspecified; N39.41 Urge incontinence; R09.02 Hypoxemia; E86.0 Dehydration; M06.9 Rheumatoid arthritis, unspecified; L40.50 Arthropathic psoriasis, unspecified; F32.9 Major depressive disorder, single episode, unspecified; I69.320 Aphasia following cerebral infarction; Z87.891 Personal history of nicotine dependence; Z90.11 Acquired absence of right breast and nipple; Z85.3 Personal history of malignant neoplasm of breast; Z87.820 Personal history of traumatic brain injury; Z79.84 Long term (current) use of oral hypoglycemic drugs; Z79.82 Long term (current) use of aspirin; Z79.52 Long term (current) use of systemic steroids; Z11.52 Encounter for screening for COVID-19
CPT/HCPCS: 70450; 70496; 70498; 70551; 71046; 80048; 80053; 80061; 80306; 80307; 81003; 82077; 82962; 83036; 83605; 85025; 85027; 87040; 87502; 87807; 87811; 92610; 93005; 97116; 97163; 97167; 97530; 99291; Q9967

== ENCOUNTER → 2024-12-09 15:13 | Outpatient (REF) | payer OTHER, SELFPAY | LOC: HWRAD 15:13 | PROVIDERS: ATTENDING PHYSICIAN Physician Assistant Medical | DX: K52.9 Noninfective gastroenteritis and colitis, unspecified (principal) | CPT/HCPCS: 73030; 73060 ==

== ENCOUNTER 2025-01-03 07:55 | Inpatient (IN) | payer OTHER, SELFPAY ==
[2024-12-30 21:20] VITALS: BP 155/94; BMI 21.6
[2024-12-30 22:00] VITALS: BP 151/99
[2024-12-30 22:01] LABS: % Basophils 0.4 % (0-2); % Eosinophils 2.6 % (0-6); % Immature Granulocytes 0.7 % (0-0.5); % Lymphocytes 11.3 % (20.5-51.1); % Monocytes 10.7 % (1.7-9.3); % Neutrophils 74.3 % (42.2-75.2); Absolute Basophils 0.1 10^3/uL (0-0.2); Absolute Eosinophils 0.3 10^3/uL (0-0.7); Absolute Immature Granulocytes 0.1 10^3/uL (0-0.05); Absolute Lymphocytes 1.3 10^3/uL (1.2-3.4); Absolute Monocytes 1.3 10^3/uL (0.1-0.6); Absolute Neutrophils 8.7 10^3/uL (1.4-6.5); Hematocrit 40.7 % (37.0-47.0); Hemoglobin 13.9 g/dL (12.0-16.0); Mean Corp Hgb Conc. 34.2 g/dL (33.0-37.0); Mean Corpuscular Hgb 30.5 pg (27.0-31.0); Mean Corpuscular Volume 89.5 fL (81.0-99.0); Mean Platelet Volume 8.6 fL (7.4-10.4); Nucleated Red Blood Cells % 0 %; Platelet Count 249 10^3/uL (130-400); Red Blood Cell Count 4.55 10^6/uL (4.20-5.40); White Blood Cell Count 11.7 10^3/uL (4.8-10.8)
[2024-12-30 22:13] LABS: Lactic Acid 1.4 mmol/L (0.7-2.0)
[2024-12-30 22:16] LABS: COVID-19 Antigen Negative (Negative)
[2024-12-30 22:20] LABS: ALT (SGPT) 31 U/L (0-35); AST (SGOT) 30 U/L (14-36); Albumin 4.3 g/dl (3.5-5.0); Alkaline Phosphatase 77 U/L (38-126); Blood Urea Nitrogen 9 mg/dl (7-17); Calcium 9.7 mg/dl (8.4-10.2); Carbon Dioxide 32 mmol/L (22-30); Chloride 97 mmol/L (98-107); Estimated Creatinine Clearance 77 ml/min; Glucose 122 mg/dl (70-99); Potassium 3.7 mmol/L (3.5-5.1); Sodium 134 mmol/L (135-145); Total Bilirubin 0.7 mg/dl (0.2-1.3); Total Protein 7.1 g/dl (6.3-8.2); eGFR > 60.00
[2024-12-30] MEDS: TYLENOL 1000 MG PO (23:02)
[2024-12-30] MEDS: NSS 1000 IV (23:06)
[2024-12-30 23:54] LABS: Urine Albumin Negative (Neg - Trace); Urine Bilirubin Negative (Negative); Urine Character Clear (Clear); Urine Color Yellow; Urine Glucose Negative (Negative); Urine Ketone Negative (Negative); Urine Leukocyte Negative (Negative); Urine Nitrite Negative (Negative); Urine Occult Blood Negative (Negative); Urine Specific Gravity 1.015 (<1.030); Urine Urobilinogen Negative (Neg - 1+)
[2024-12-31] VITALS (22 sets, daily range): BP systolic 91–151; BP diastolic 64–92; PULSE 91–100; O2SAT 97
--- NOTE | 2024-12-31 00:03 | ED.GENMED ---
History of Present Illness
General
Chief Complaint: Fall
Source: spouse and family (daughter)
Exam Limitations: none
Time Seen by Provider: 12/30/24 21:44
Nursing documentation reviewed up to this point in time: agreed with
History of Present Illness
History of Present Illness:
Patient to ED for change in mental status. According to he found her on the floor next to the bed. He states she was confused, slow to verbally respond. Reports that it took him close to an hour to get her back up into bed. Typically she
is alert, oriented x 3 but has poor memory due to TBI. States she is now weak and unable to stand. Temp of 101.7 in ED, spouse reports this is new. Brought to ED via EMS for eval.
Past History
Past History
ED Past Medical History: Asthma, Cancer (Breast carcinoma), CVA, HTN, Hypercholesterolemia, NIDDM, Psychiatric (Major depression) and Other (Psoriatic arthritis, rheumatoid arthritis, concussion August 2022, right knee hematoma)
ED Past Surgical History: Orthopedic (Rotator cuff repair 2011) and Other (Right mastectomy, inguinal herniorrhaphy)
Social History
Tobacco: Other (Distant smoker)
Alcohol: Chronic alcoholic
Drug: None
Personal:
Living: with family
Family History
Family History: Diabetes and Cancer
Review of Systems
Review of Systems
Allergies reviewed?: Yes
All Other Systems: ROS reviewed and negative except as documented in HPI and ROS
Constitutional: Reports fever and fatigue
EENT: Reports no symptoms
Respiratory: Reports no symptoms
Cardiac: Reports no symptoms
ABD/GI: Reports diarrhea (chronic)
: Reports no symptoms
Musculoskeletal: Reports no symptoms
Skin: Reports no symptoms
Neurological: Reports weakness and other (confusion)
Psychiatric: Reports no symptoms
Phy Exam
General Physical Exam
General Presentation: mild distress
General age: appears stated age
General Skin: warm and dry
General Habitus: normal
General Mental: confused
General Hydration: dry mucous membranes
Cardiovascular Exam
Cardiovascular Exam: regular rate/rhythm and no edema
Pulmonary Exam
Pulmonary Exam: lungs clear and no respiratory distress
Gastrointestinal Exam
Gastrointestinal Exam: normal bowel sounds, non tender, soft, no organomegaly and no pulsatile mass
NIH Stroke Score
Level of Consciousness: 1 - Arousable
LOC questions: 2-Neither correct
LOC Commands: 0-Performs both correctly
Best Gaze: 0-Normal
Visual Gonzalez: 0=Normal, no visual loss
Facial palsy: 0=Normal, symmetrical
Motor - Right Arm: 0=No drift 10 seconds
Motor - Left Arm: 0=No drift 10 seconds
Motor - Right Le-No drift 5 seconds
Motor - Left Le-No drift 5 seconds
Limb Ataxia: 0-Absent
Sensation: 0-Normal
Best Language: 0-No aphasia
Dysarthria: 0-Normal
Extinction and Inattention: 0-No abnormality
Total Score:: 3
Musculoskeletal Exam
Musculoskeletal Exam: full ROM, no edema, neuro vasc intact and other (bruising noted left lateral knee. Full ROM to joint, no swelling)
Skin Exam
Skin Exam: normal color, warm/dry and no rash
Psychiatric Exam
Psychiatric Exam: normal mood/affect
Sepsis
Sepsis Screening
Sepsis Assessment: Sepsis Ruled Out
Sepsis Screen
Sepsis Screen: Sepsis Ruled Out
Date: 01/02/25
Time: 15:27
Course
Orders/Labs/Results
Orders:
Orders
12/30/24 21:30
Electrocardiogram (*1) Urgent
Reason for Study: Other
Other Reason for Exam: Possible Sepsis
Cardiac Monitoring- Treatment ONCE
IV Insert/Care/Rem.- Treatment PRN
CR Chest - 2 Views Urgent
Comment:
Reason For Exam: suspected infection
12/30/24 21:31
EKG- Treatment ONCE
12/30/24 21:41
COVID-19 Antigen Urgent
Source: Nasal Swab
Complete Blood Count/With Diff Urgent
Comprehensive Metabolic Panel Urgent
Blood Culture Q20M
DAVID Source: Blood/Venous
Specimen Description:
Comment: Urgent from separate sites. If patient screens positive for possible sepsis
Blood Culture Q20M
DAVID Source: Blood/Venous
Specimen Description:
Comment: Urgent from separate sites. If patient screens positive for possible sepsis
Influenza A+B Rapid Molecular Urgent
DAVID Source: Nasal Swab
Specimen Description:
12/30/24 21:42
Lactic Acid Q4H
Comment: ON ICE, CANCEL 2ND ORDER IF FIRST LACTIC ACID LEVEL <2
12/30/24 22:51
0.9% Sodium Chloride 1000 ml [Nss] 1,000 ml IV BOLUS
Acetaminophen [Tylenol] 1,000 mg PO NOW STA
12/30/24 22:53
CT Head W/o Iv Contrast Urgent
Comment:
Reason For Exam: change in mental status.
12/30/24 23:41
Urinalysis Reflex To Culture Urgent
Date Specimen was Collected: 12/30/24
Time Specimen was Collected: 23:34
12/31/24 00:46
Admit/Transfer Patient As Directed
Co-Sign Provider:
Level of Care: Observation services
Assign to:: Telemetry
Physician / Group: Emelia
Diagnosis: Fever, fall
Reason for Telemetry: Syncope
Date to Stop Telemetry: 01/02/25
Time to Stop Telemetry: 11:00
PRN Pain Medication Management As Directed
May give lesser potent ordered pain med per pt: Yes
preference::
Protocol:: Medication orders for pain may be administered in a
manner that supports deferring to patient preference
when the pt is:
- Requesting an ordered lesser potent pain medication.
Least to most potent pain medications are defined
as: acetaminophen < NSAID < tramadol < opioids
(morphine, oxycodone, hydromorphone).
- Requesting a lesser dose of the same medication IF
ORDERED.
- Requesting a less intrusive route of administration
if both routes are prescribed by the provider (PO <
IV).
12/31/24 00:48
Code Status As Directed
Resuscitation Status: Full Code
12/31/24 01:19
0.9% Sodium Chloride 1000 ml [Nss] 1,000 ml IV 100 mls/hr
12/31/24 01:19
Activity As Directed
Activity Level: With Assistance
Bedside Glucose Monitoring As Directed
Frequency: AC&HS
Orthostatic Vital Signs As Directed
Orthostatic VS Frequency: Daily
Vital Signs As Directed
Frequency: Per unit guidelines
Pt Eval And Treat Routine
Activity Level: With Assistance
DX Deep Vein Thrombosis Video Routine
12/31/24 05:41
Basic Metabolic Panel IN AM
CRP [C-Reactive Protein] IN AM
Complete Blood Count/No Diff IN AM
Magnesium IN AM
TSH IN AM
12/31/24 Breakfast
1800 calorie (15 carb) Diabetic
At Your Request: Limited Participation
12/31/24 07:30
Insulin Aspart Corrective Low [Novolog Flexpen-Low Resistance] See Protocol SC AC
12/31/24 08:00
Amlodipine [Norvasc] 5 mg PO DAILY
Aspirin Low Dose EC [Aspir Low (Enteric Coated)] 81 mg PO DAILY
Escitalopram Oxalate [Lexapro] 20 mg PO DAILY
Gabapentin [Neurontin] 400 mg PO DAILY
METFORMIN HCl [Glucophage] 1,000 mg PO DAILY
12/31/24 09:12
Norovirus by PCR Stat
DAVID Source: Feces/Stool
Specimen Description:
Date Specimen was Collected: 12/31/24
Time Specimen was Collected: 09:05
Ova & Parasites Giardia/Crypto AG [Giardia/Cryptosporidium Ag] Stat
DAVID Source: Feces/Stool
Specimen Description:
Date Specimen was Collected: 12/31/24
Time Specimen was Collected: 09:05
STOOL [C difficile Antigen & Toxins] Stat
DAVID Source: Feces/Stool
Specimen Description:
Date Specimen was Collected: 12/31/24
Time Specimen was Collected: 09:05
Stool Culture Stat
DVAID Source: Feces/Stool
Specimen Description:
Date Specimen was Collected: 12/31/24
Time Specimen was Collected: 09:05
12/31/24 18:00
Atorvastatin [Lipitor] 80 mg PO QPM
Enoxaparin Sodium [Lovenox] 40 mg SC QPM
Gabapentin [Neurontin] 800 mg PO QPM
METFORMIN HCl [Glucophage] 500 mg PO QPM
Propranolol [Inderal] 20 mg PO QPM
12/31/24 22:00
Donepezil HCl [Aricept] 10 mg PO HS
Ferrous Sulfate [Feosol] 325 mg PO HS
Nitrofurantoin Monohydrate [Macrobid] 100 mg PO HS
01/02/25 11:00
DC Protocol for Telemetry ONCE
Abnormal Lab Results
12/30/24
21:41
WBC 11.7 H 10^3/uL
(4.8-10.8)
Abs Immat Gran (auto) 0.1 H 10^3/uL
(0-0.05)
Absolute Neuts (auto) 8.7 H 10^3/uL
(1.4-6.5)
Absolute Monos (auto) 1.3 H 10^3/uL
(0.1-0.6)
Immature Gran % 0.7 H %
(0-0.5)
Lymphocytes % 11.3 L %
(20.5-51.1)
Monocytes % 10.7 H %
(1.7-9.3)
Sodium 134 L mmol/L
(135-145)
Chloride 97 L mmol/L
(98-107)
Carbon Dioxide 32 H mmol/L
(22-30)
Glucose 122 H mg/dl
(70-99)
12/30/24 21:41
12/30/24 21:41
Vital Signs
Initial and Last Documented VS:
Initial Vital Signs
Temp Pulse Resp BP Pulse Ox
101.7 F H 111 18 155/94 96
12/30/24 21:20 12/30/24 21:20 12/30/24 21:20 12/30/24 21:20 12/30/24 21:20
Last Documented Vital Signs
Temp Pulse Resp BP Pulse Ox
97.7 F 69 13 115/65 97
01/02/25 11:30 01/02/25 14:00 01/02/25 14:00 01/02/25 14:00 01/02/25 14:00
*Critical Care Note
Total Time (30-74mins, 75-104mins- exclusive of procedures): Not Applicable
Update Note
Update Note:
Patient to ED via EMS for sudden confusion, weakness. Fell OOB tonight, family report she was too weak to stand. temp of 101.7 on arrival to ED. WBC slightly elevated, lactic normal. CXR and UA both neg for infectious process. She was given IVF
and tylenol with some improvement in mentation, although family reports she is not at her baseline. Labs, CXR, CT report reviewed. No findings to explain her symptoms. Blood cultures are pendings. WIll admit to hospitialist for weakness, change
in mental status.
ED Attending Note
-
Portions of this chart may have been created with voice recognition software.� Occasional wrong word or��sound alike� substitutions may have occurred due to the inherent limitations of voice recognition software.
Discharge Plan
Departure
Patient Disposition: Admit
Date of Disposition: 12/31/24
Time of Disposition: 00:13
Presentation/result/management discussed w/ accepting MD/DO: Hospitalist
Patient with high blood pressure during this ER visit?: No
Condition: Fair
Covid-19: Not Applicable
Discharge Problem:
Altered mental status, Fever, Weakness
Interventions
Interventions:
*Risk Screen - Suicide Last Done: 12/30/24 21:20
*General Assessment Last Done: 12/30/24 21:20
*Neglect/Abuse Screening Last Done: 12/30/24 21:20
*ED- Fall Risk Assessment Last Done: 12/30/24 21:20
*ED COVID-19 Vaccine History Last Done: 12/30/24 21:20
*Nursing Disposition Last Done: 12/31/24 17:56
ED-Musculoskeletal Assessment Last Done: 12/31/24 02:54
ED- Neurological Assessment Last Done: 12/31/24 02:54
ED-Skin Assessment Last Done: 12/31/24 02:54
Discharge Date and Time
Discharge Date/Time: 12/31/24 17:57
--- NOTE | 2024-12-31 00:18 | HPS.HSE ---
Family Physician
-
Family Physician: Yareli Mckeon
Chief Complaint
-
Fever
History of Present Illness
This is a 69-year-old female with past medical history of hypertension, hyperlipidemia, NIDDM, h/o CVA, history of TBI with for memory who presents to the emergency department after being found on the floor by spouse and found to be weak.
Patient has been in usual state of health since her discharge from the hospital in August for influenza A and encephalopathy. She states that for about a month she been having watery/loose stools. She has a pending outpatient colonoscopy in about
1 week. She denies any melena or hematochezia. She denies abdominal pain. She denies any nausea or vomiting. She states that she takes Macrobid to prevent urinary tract infection in the setting of diarrhea. According to spouse patient was
normal in the a.m. and was ambulatory without any acute symptoms. At around 4 PM she wanted to take a nap and she went to bed. He went out and then came back 1 hour later finding her on the side of the bed on the floor facedown. She was awake and
responding but very weak. He was unable to get her up and so he called EMS. Patient does not recall how she fell. According to spouse she is she has had multiple falls by rolling off of the bed and trying to get a guardrail for her. This is
secondary to her TBI. She denies any prior history of any seizures. She denies having any chest pain palpitations lightheadedness. She denies dizziness dyspnea or diarrhea. She denies any joint aches and pains. She denies any joint swelling.
She denies any rash. She denies any urinary symptoms. Only recent medication changes is initiation of memantine.
In the emergency department patient had a Tmax of 101. Blood pressure was normal at 115/80 with a pulse of 84. She is satting 95% on room air.
ECG shows sinus tachycardia at 111.
White count was 11.7, hemoglobin and platelets were normal at 15.9 and 249. Electrolytes were normal. BUN/creatinine were normal. Glucose was normal. Head CT negative.
Chest x-ray was clear. UA was unremarkable. COVID test was negative. Influenza test was negative.
Medical History
Past Medical History
Past Medical History: Reports Other
Additional Past Medical History:
Asthma,
Breast carcinoma
CVA,
essential HTN,
Hypercholesterolemia,
NIDDM,
Major depression
Psoriatic arthritis,
rheumatoid arthritis,
concussion August 2022,
right knee hematoma
Rotator cuff repair 2011
Right mastectomy,
inguinal herniorrhaphy
Atrophic vaginitis
Primary osteoarthritis of both knees
Gait abnormality
Foot drop, left
Neuropathic pain
Cognitive impairment
Fatty liver
Low vitamin D level
Urgency incontinence
Past Surgical History: Reports Other
Additional Past Surgical History:
See above
Social History
Tobacco: Non-smoker
Alcohol: None
Drug: None
Personal:
Living: With Family
Family History
Family History: Not pertinent
Allergies / Home Medications
Allergies reflects when Allergies were last updated in [facility].
Home Medications with original date entered in [facility]
Allergy/Medication List:
Allergies
Allergy/AdvReac Type Severity Reaction Status Date / Time
No Known Allergies Allergy Unverified 06/21/23 19:12
Home Medications
Thc 1 applic topical TIDPRN PRN arthirits 09/11/24
amlodipine 5 mg tablet 5 mg PO DAILY 09/11/24
aspirin 81 mg tablet,delayed release 81 mg PO DAILY 09/11/24
atorvastatin 80 mg tablet 80 mg PO QPM 09/11/24
cholecalciferol (vitamin D3) 50 mcg (2,000 unit) tablet (Vitamin D3) 50 mcg PO DAILY 09/11/24
cyanocobalamin (vitamin B-12) 1,000 mcg tablet 1,000 mcg PO DAILY 09/11/24
donepezil 10 mg tablet 10 mg PO HS 09/11/24
escitalopram oxalate 20 mg tablet 20 mg PO DAILY 09/11/24
gabapentin 400 mg capsule 400 mg PO TID 09/11/24
hydrocodone 7.5 mg-acetaminophen 325 mg tablet 1 tab PO TIDPRN PRN severe pain 09/11/24
metformin 500 mg tablet 1,000 mg PO DAILY 09/11/24
metformin 500 mg tablet 500 mg PO QPM 09/11/24
Review of Systems
-
History Source: Patient and Family
Constitutional: Reports No Symptoms
EENT: Reports No Symptoms
Respiratory: Reports No Symptoms
Cardiac: Reports No Symptoms
Abdomen/GI: Reports Diarrhea
: Reports No Symptoms
Skin: Reports No Symptoms
Neurological: Reports Weakness
Endocrine: Reports No Symptoms
Hematologic/Lymphatic: Reports No Symptoms
Psych: Reports No Symptoms
Physical Exam
Vital Signs
Vital Signs
Temp Pulse Resp BP Pulse Ox
99.6 F 82 18 115/79 95
12/30/24 23:47 12/31/24 00:00 12/31/24 00:00 12/31/24 00:00 12/31/24 00:00
Physical Exam
General: Well Developed, No Apparent Distress, Comfortable and Conversant
HEENT: NormoCephalic, Anicteric, Moist mucous membranes and Atraumatic
Respiratory: Clear
Cardiac: S1/S2 and Regular Rhythm
Breast: Deferred by me
GI: Soft, Non Tender, Non Distended, Normal Bowel Sounds, Flat and No Hepatosplenomegaly
Rectal: Deferred by Provider
Genito-urinary: Deferred by me
Musculoskeletal: No Clubbing, No Cyanosis and No Edema
Skin: Warm and Dry
Neuro: AO x 3 and Nonfocal/grossly intact
Hematologic/Lymphatic: No Lymphadenopathy
Psych: Calm
Laboratory Results
-
12/30/24 21:41
12/30/24 21:41
Laboratory Results
Lactic Acid 1.4 mmol/L (0.7-2.0) 12/30/24 21:42
Total Bilirubin 0.7 mg/dl (0.2-1.3) 12/30/24 21:41
AST 30 U/L (14-36) 12/30/24 21:41
ALT 31 U/L (0-35) 12/30/24 21:41
Alkaline Phosphatase 77 U/L (38-126) 12/30/24 21:41
Data Reviewed
-
Diagnostic Radiology: Image Personally Visualized and interpreted and Report Reviewed by me
Medical Tests (Nuc Med, Echo, EKG etc): Image Personally Visualized and interpreted
Lab Data: Labs Reviewed by me
Old Records: Reviewed
Impression/Plan
-
IMPRESSION:
69-year-old female with past medical history significant for TBI with memory loss currently on donepezil and recently started on memantine who presents to the emergency department after being found down at home on the bedside by spouse. Spouse
reports that patient has a history of rolling off of the bed in the past. When he tried to get her up today she appeared to be very weak although she was responding with a normal voice. Patient herself has no recollection of falling. There has
been no antecedent illness other than diarrhea. She had a fever on arrival in the emergency department. She is not having any chest pain. She is not having any palpitations. Chest x-ray was clear ECG was nonischemic. Abdominal exam was
completely benign. UA was negative. COVID and flu were negative.
PLAN:
Fever -chest x-ray, UA, viral testing all negative. No focal findings on exam. There is no obvious source and patient is currently well-appearing with normal lactic acid and normal vital signs.
-Admit to telemetry obs
- blood cultures sent
-Vital signs every 4 to monitor fever profile
-Blood cultures afebrile
-Hold off on antibiotics at this time
-Likely viral illness besides COVID flu
-Given history of diarrhea, urine culture, norovirus and C. difficile
Weakness -dehydration, possible syncope.
- telemetry overnight
- IV fluids
- orthostatics in am
DMII
- continue metformin for now
- sliding scale insulin
h/o CVA
- continue aspirin statin
- continue her donepezil, memantine ordered for outpatient, has not started
DVT PPx - lovenox sq
Code Status - Full Code
[2024-12-31] MEDS: NSS 1000 IV ×2 (01:34→21:21)
[2024-12-31 05:51] LABS: Hematocrit 35.5 % (37.0-47.0); Hemoglobin 12.1 g/dL (12.0-16.0); Mean Corp Hgb Conc. 34.1 g/dL (33.0-37.0); Mean Corpuscular Hgb 30.3 pg (27.0-31.0); Mean Corpuscular Volume 88.8 fL (81.0-99.0); Mean Platelet Volume 8.6 fL (7.4-10.4); Platelet Count 216 10^3/uL (130-400); White Blood Cell Count 6.5 10^3/uL (4.8-10.8)
[2024-12-31 06:11] LABS: Blood Urea Nitrogen 8 mg/dl (7-17); Calcium 8.8 mg/dl (8.4-10.2); Carbon Dioxide 27 mmol/L (22-30); Chloride 106 mmol/L (98-107); Estimated Creatinine Clearance 89 ml/min; Glucose 147 mg/dl (70-99); Magnesium 1.5 mg/dl (1.6-2.3); Potassium 3.6 mmol/L (3.5-5.1); Sodium 139 mmol/L (135-145); eGFR > 60.00
[2024-12-31 06:45] LABS: TSH 1.02 uIU/ml (0.47-4.68)
[2024-12-31] MEDS: NOVOLOG FLEXPEN-LOW RESISTANCE SC ×3 (08:15→17:34)
[2024-12-31] MEDS: ASPIR LOW (ENTERIC COATED) 81 MG PO (08:17)
[2024-12-31] MEDS: GLUCOPHAGE 1000 MG PO (08:19)
[2024-12-31] MEDS: NORVASC 5 MG PO (08:26)
[2024-12-31] MEDS: LEXAPRO 20 MG PO (08:26)
[2024-12-31] MEDS: NEURONTIN 400 MG PO (08:26)
--- NOTE | 2024-12-31 13:04 | PHANOTE ---
Addendum entered by Esha Zaragoza 12/31/24 15:03:
spouse called with patient home meds
Original Note:
MED REC NOTE- LEFT MESSAGE FOR FAMILY ON FILE, CALLED SPOUSE BUT NO ANSWER. PHYSICIAN AND PHARMACY SEEMED TO UP TO DATE
[2024-12-31 13:58] LABS: Glucose - Point of Care 105 mg/dl (70-99)
[2024-12-31 15:17] LABS: Glucose - Point of Care 101 mg/dl (70-99)
[2024-12-31] MEDS: NEURONTIN 800 MG PO (17:33)
[2024-12-31] MEDS: LOVENOX 40 MG SC (17:33)
[2024-12-31] MEDS: LIPITOR 80 MG PO (17:33)
[2024-12-31 18:05] LABS: Glucose - Point of Care 164 mg/dl (70-99)
--- NOTE | 2024-12-31 18:15 | PTCARENOTE ---
1814 Pt arrived from ER via w/c. Alert and oriented x 3. Noted MD orders, Place on telemetry (heart rhythm, Sinus rythym (heart rate 70's to 80's).
Pt mention had a fall at home. Place on bed alarm. Call mayorga with in reach. Pt denies acute discomfort, continue to monitor pt.
[2024-12-31] MEDS: NORCO 5/325 1 TABLET PO (18:57)
[2024-12-31] MEDS: FEOSOL 325 MG PO (21:30)
[2024-12-31] MEDS: MACROBID 100 MG PO (21:30)
[2024-12-31] MEDS: ARICEPT 10 MG PO (21:30)
[2024-12-31 21:54] LABS: Glucose - Point of Care 301 mg/dl (70-99)
[2025-01-01] VITALS (8 sets, daily range): BP systolic 103–160; BP diastolic 73–104; BMI 21.0
[2025-01-01] MEDS: NSS 1000 IV ×3 (05:38→15:04)
[2025-01-01 07:37] LABS: Glucose - Point of Care 105 mg/dl (70-99)
[2025-01-01] MEDS: NOVOLOG FLEXPEN-LOW RESISTANCE SC ×3 (09:26→17:10)
--- NOTE | 2025-01-01 09:30 | PTCARENOTE ---
0915 Noted when pt was up ambulating. Noted on telemetry (heart rhythm: Sinus Rhythm, Sinus Tachycardia)
Heart rate increase to 141. Pt back in bed HR 102 - 110. Pt aymptomatic, denies acute discomfort.
Pt can be forgetful and anxious at times. Checked BP 160/104 pulse 110 resp 18. temp 100.6. Pulse ox 99% room air.
[address] Huey Jones, continue to monitor pt closely.
[2025-01-01] MEDS: NORCO 5/325 1 TABLET PO (09:48)
[2025-01-01] MEDS: ASPIR LOW (ENTERIC COATED) 81 MG PO (09:50)
[2025-01-01] MEDS: LEXAPRO 20 MG PO (09:52)
[2025-01-01] MEDS: NEURONTIN 400 MG PO (09:52)
[2025-01-01] MEDS: NORVASC 5 MG PO (09:59)
--- NOTE | 2025-01-01 10:35 | W.DCSUMMARY ---
Addendum entered and electronically signed by Huey Jones MD 01/01/25 14:25:
Discharge held as she he is febrile to 104.9.
Blood cultures
IV antibiotics
ID consult
Cooling blanket
Rectal Tylenol
IMU
Original Note:
Discharge Summary
Discharge Data
Date of Admission: 12/31/24
Date of Discharge: 01/01/25
-
Pending Results: Yes
Additional Pending Results:
Blood cultures
Hospital Course
69-year-old female with past medical history of hypertension, hyperlipidemia, NIDDM, h/o CVA, history of TBI with memory impairment
Presented after being found on the floor facedown next to the bed by her . No reports of weakness and diarrhea. Fortunately, workup has been negative along with negative cultures. Suspect likely related to acute viral syndrome outside of
COVID/flu as this was negative. He was not started on antibiotics and was evaluated by physical therapy/Occupational Therapy recommended home health follow-up.
At this time we will discharge home with home health services
If symptoms return worsening symptomatology high fevers then return to the ER.
Make sure when sleeping sleep with side bed rails up to prevent any further falling out of bed
She was seen and examined on day of discharge. No new complaints. No acute overnight events.
Updated via phone call. Informed him that this is likely acute viral infection thus far negative workup.
-Discussed with him providing supportive care with fluids soups eating well and antipyretics such as time for fevers
10 point ROS negative apart from what is stated above
NAD
Scleral Anicteric
MMM
No JVD
CTABL
RRR, S1/S2
Soft, NT, ND, BS+
Warm, Dry
Calm
More than 30 minutes spent in discharge including
Final examination of the patient
Summarizing hospital stay
Instructions for continuing care to all relevant caregivers
Preparation of discharge records, prescriptions, and referral forms
Total time spent (in minutes):33mins
Discharge Plan
-
Patient Disposition: Home with Home Care
Discharge Diagnosis/Procedures: Fall
Condition: Fair
Diet: As tolerated and Diabetic, Carb Controlled
Activity: As tolerated
Activity Restrictions/Additional Instructions:
Presented after being found on the floor facedown next to the bed by her . No reports of weakness and diarrhea. Fortunately, workup has been negative along with negative cultures. Suspect likely related to acute viral syndrome outside of
COVID/flu as this was negative. He was not started on antibiotics and was evaluated by physical therapy/Occupational Therapy recommended home health follow-up.
At this time we will discharge home with home health services
If symptoms return worsening symptomatology high fevers then return to the ER.
Make sure when sleeping sleep with side bed rails up to prevent any further falling out of bed
Referrals:
Yareli Mckeon PA-C [Family Provider] -
Prescriptions:
Continued
metformin 500 mg Tablet
500 mg PO QPM
atorvastatin 80 mg Tablet
80 mg PO QPM
gabapentin 400 mg Capsule
800 mg PO HS
amlodipine 5 mg Tablet
5 mg PO DAILY
aspirin 81 mg Tablet,Delayed Release (Dr/Ec)
81 mg PO DAILY
escitalopram oxalate 20 mg Tablet
20 mg PO DAILY
Thc cream
1 applic topical TIDPRN PRN (Reason: arthirits)
Rx Instructions:
wrists
metformin 500 mg tablet
1,000 mg PO DAILY
hydrocodone-acetaminophen 10-325 mg Tablet
1 tab PO Q6HPRN PRN (Reason: SEVERE PAINS)
memantine 5 mg Tablet
10 mg PO DIRECTED
Rx Instructions:
starting 12/28/24 take one tablet qpm for 1 week, then 1 tablet bid for 1 week then 1 tablet am and 2 tabs qpm for 1 week then 2 tabs bid
nitrofurantoin monohyd/m-cryst [Macrobid] 100 mg Capsule
100 mg PO QPM
Taltz Syringe 80 mg/mL Syringe
80 mg SC Q4W
prednisone 10 mg Tablet
10 mg PO DAILY
Rx Instructions:
for 90 days
donepezil 10 mg Tablet
10 mg PO HS
cyanocobalamin (vitamin B-12) 1,000 mcg Tablet
1,000 mcg PO DAILY
calcium carbonate [Calcium 600] 600 mg calcium (1,500 mg) Tablet
600 mg PO DAILY
ferrous sulfate 325 mg (65 mg iron) Tablet
325 mg PO QPM
cholecalciferol (vitamin D3) [Vitamin D3] 25 mcg (1,000 unit) Tablet
25 mcg PO DAILY
Boswellia samanta extract 307 mg Tablet
250 mg PO DAILY
Discharge Orders:
Discharge Patient (As Directed); Ordered 01/01/25
Ordered By: Huey Jones
Discharge Date and Time
Print Language: GEORGIAN
[2025-01-01 11:23] LABS: Glucose - Point of Care 145 mg/dl (70-99)
--- NOTE | 2025-01-01 11:28 | CM ---
CM reviewed chart, patient seen bedside. Call to patients , Ted, to complete initial assessment. Patient resides with in a single story home, two steps to enter. Patient has a cane at home if needed (for longer distances),
confirmed does have bed rails. CM discussed PT recommendations of VN, reports patient has caregivers through [facility] 5 days a week, four hours a day (at least) and they provide therapy to patient. Confirms PCP Yareli Mckeon,
pharmacy [facility] in [place]. JOHNSON form reviewed verbally with , no questions, placed in chart. will provide transportation home for patient. CM will continue to follow for all discharge planning needs.
Plan; home with , caregivers
--- NOTE | 2025-01-01 14:30 | PTCARENOTE ---
1345 Checked pt, noted pt lethargic. Pt only speaking one to two words. Pt skin felt very warm. Unable to take oral temp, Pt could not hold thermometer in mouth properly. Obtain rectal temp 104.2.1400 Dr. katalina Jones notified. Noted MD orders to
give tylenol 650 mg suppository x 1.
Blood cultures ordered x 2. Restarted IV fluids NSS at 100 per hour via IV pump. Noted pulse ox on room air 88%, Place O2 2L via n/c (pulse ox 94%)
MD aware. Portable chest x-ray ordered, continue to monitor pt closely.
--- NOTE | 2025-01-01 14:31 | PHA.VAN.IN ---
Assessment
- Assessment
Renal Function: Appears similar to baseline
Maximum Temperature: 100.6 F
Concomitant Antimicrobials: PIPERACILLIN/TAZO
AUC Dosing Plan
- Dosing Variables
Dosing Weight (kg): 62
Dosing CrCl (ml/min): 88
Vd coefficient (L/kg): 0.7
- Empiric Dosing
Initial / Loading Dose: VANCO 1500MG X1
Maintenance Regimen: VANCO 750MG Q12H
Estimated AUC (mcg*h/mL): 464
Estimated Peak (mcg*h/mL): 28.6
Estimated Trough (mcg/ml): 12.2
Estimated Half Life (H): 8.9
- Monitoring
No levels ordered at this time: CONSIDER LEVEL IN NEXT FEW DAYS
Pharmacokinetics Vancomycin I
- -
Patient Age: 69
Patient Sex: Female
Vancomycin Day #: 1
Indication: Other
Requesting Provider: DR. GIUSEPPE PRAKASH
Height / Weight:
Height 5 ft 8 in
Actual Weight 62.737 kg
- Vital Signs / Lab Results
Temp Pulse Resp BP Pulse Ox
98.7 F 110 20 147/88 98
01/01/25 10:38 01/01/25 10:38 01/01/25 10:38 01/01/25 10:38 01/01/25 10:38
Lab Results - Hematology
12/30/24 12/31/24
21:41 05:41
WBC 11.7 H 6.5
Lab Results - Chemistry
12/30/24 12/31/24
21:41 05:41
BUN 9 8
Creatinine 0.7 0.6
Estimated Creat Clear 77 89
Albumin 4.3
12/30/24
21:42
Lactic Acid 1.4
Lab Results - Urine
12/30/24
23:41
Urine Nitrite (Reflex) Negative
Leukocyte Esterase Rfl Negative
Microbiology Results
12/31/24 09:12 Salmonella/Shigella Culture - Preliminary
Feces/Stool Culture in Progress
Campylobacter Culture - Preliminary
Culture in Progress
Stool Leukocytes - Final
12/30/24 21:41 Blood Culture - Preliminary
Blood/Venous Coagulase neg. staphylococcus
Additional testing on request
Gram Stain - Preliminary
12/30/24 21:41 Blood Culture - Preliminary
Blood/Venous No Growth in 24 hours- Final report to follow
12/31/24 09:12 Cryptosporidium/Giardia - Final
Feces/Stool Negative for Cryptosporidium and/or Giardia Lamblia
antigens.
C. difficile GDH Antigen & Toxins - Final
Negative for toxigenic C.difficile
- Final
Negative for Norovirus GI and GII.
12/30/24 21:41 Influenza Types A & B (JAMEL) - Final
Nasal Swab Negative for Influenza A & B, NAAT
Negative results must be combined with clinical observations
and patient history.
Nucleic Acid Amplification test (NAAT)performed on the
[employer] platform.
[2025-01-01] MEDS: TYLENOL/FEVERALL 650 MG RECTAL (14:37)
--- NOTE | 2025-01-01 14:57 | CON.ID ---
Consultation
-
Date/Time Consultation Requested: 01/01/25 14:01
Date/Time Consultation Performed: 01/01/25 14:58
Requesting Provider: Dr Jones
Performing Provider: Dr Wakefield
Reason for Consultation: fever
Chief Complaint / Past History
Chief Complaint
fever
History of Present Illness
Ms Winkler is a 69 year old female with history of TBI, RA/psoriatic arthritis (no recent steroids or injections), DM2 who presented here for abotu a month of watery/loose stools without melena or hematochezia. N oabdominal oneill, nausea or
vomiting. She was started on macrobid for UTI prophylaxis. She was found face down after falling out of bed and brought here.
Since arrival here she was initially febrile to 101.7 and today again febrile to 104.9 by report, bp overall stable, her HR was initially in the 80s and today is increased to the 110 range, wbc initially 11.7 now 6.5, hgb 12.1, plt 216, no L shift,
cr 0.6, lactic acid 1.4, lfts wnl, crp 7.2, ua no pyuria, covid ag negative, CT head nonconrast: mild trophy, CXR: no pneumonia, blood cultures x2 no growth to date, garida and crypto were negative, c difficile negative. Today she has had
persistent fevers. Reports no: headache, photophobia, sinus tenderness, sore throat, cough, sputum production, nausea, vomiting, constipation, dysuria, new rashes or new joint pains. currently on vanc/zosyn and nitrofurantoin. ID is consulted for
assistance with management.
Past History
Additional Past Medical History:
Asthma,
Breast carcinoma
CVA,
essential HTN,
Hypercholesterolemia,
NIDDM,
Major depression
concussion August 2022,
right knee hematoma
Atrophic vaginitis
Primary osteoarthritis of both knees
Gait abnormality
Foot drop, left
Neuropathic pain
Cognitive impairment
Fatty liver
Low vitamin D level
Urgency incontinence
Additional Past Surgical History:
Rotator cuff repair 2011
Right mastectomy,
inguinal herniorrhaphy
Allergy History:
No Known Allergies Allergy (Verified 12/30/24 21:20)
Medications Reviewed: Yes
Social History
Tobacco: Non-Smoker
Alcohol: None
Drug: None
Family History
Family History: Not Pertinent
Review of Systems
Review of Systems
General: Negative Fever or Chills
All systems: All other systems were reviewed and were negative
Vital Signs
Temp Pulse Resp BP Pulse Ox
98.7 F 110 20 147/88 98
01/01/25 10:38 01/01/25 10:38 01/01/25 10:38 01/01/25 10:38 01/01/25 10:38
Physical Exam
Physical Exam
Constitutional: No Acute Distress and Chronically Ill
Cardiovascular: Regular Rate and S1/S2; Negative Murmur or Rub
Pulmonary: Clear and Symmetric; Negative Wheezes, Rales or Rhonchi
Gastrointestinal: Soft, Non Tender, Non Distended and Normal Bowel Sounds
Skin: Warm and Dry; Negative Rash or Jaundice
Lab / Diagnostic Study Results
12/31/24 05:41
12/31/24 05:41
Abs Immat Gran (auto) 0.1 10^3/uL (0-0.05) H 12/30/24 21:41
Absolute Neuts (auto) 8.7 10^3/uL (1.4-6.5) H 12/30/24 21:41
Absolute Lymphs (auto) 1.3 10^3/uL (1.2-3.4) 12/30/24 21:41
Absolute Monos (auto) 1.3 10^3/uL (0.1-0.6) H 12/30/24 21:41
Absolute Basos (auto) 0.1 10^3/uL (0-0.2) 12/30/24 21:41
Immature Gran % 0.7 % (0-0.5) H 12/30/24 21:41
Neutrophils % 74.3 % (42.2-75.2) 12/30/24 21:41
Lymphocytes % 11.3 % (20.5-51.1) L 12/30/24 21:41
Monocytes % 10.7 % (1.7-9.3) H 12/30/24 21:41
Eosinophils % 2.6 % (0-6) 12/30/24 21:41
Basophils % 0.4 % (0-2) 12/30/24 21:41
Lactic Acid 1.4 mmol/L (0.7-2.0) 12/30/24 21:42
C-Reactive Protein 7.20 mg/L (0.0-10.00) 12/31/24 05:41
Microbiology Results
Micro:
01/01/25 14:22 Blood Culture - Pending
Blood/Venous
12/31/24 09:12 Salmonella/Shigella Culture - Preliminary
Feces/Stool Culture in Progress
Campylobacter Culture - Preliminary
Culture in Progress
Shiga Toxin Test - Pending
Stool Leukocytes - Final
12/30/24 21:41 Blood Culture - Preliminary
Blood/Venous Coagulase neg. staphylococcus
Additional testing on request
Gram Stain - Preliminary
12/30/24 21:41 Blood Culture - Preliminary
Blood/Venous No Growth in 24 hours- Final report to follow
12/31/24 16:56 Blood Culture - Pending
Blood/Venous
12/31/24 16:56 Blood Culture - Pending
Blood/Venous
12/31/24 09:12 Cryptosporidium/Giardia - Final
Feces/Stool Negative for Cryptosporidium and/or Giardia Lamblia
antigens.
C. difficile GDH Antigen & Toxins - Final
Negative for toxigenic C.difficile
- Final
Negative for Norovirus GI and GII.
12/30/24 21:41 Influenza Types A & B (JAMEL) - Final
Nasal Swab Negative for Influenza A & B, NAAT
Negative results must be combined with clinical observations
and patient history.
Nucleic Acid Amplification test (NAAT)performed on the
[employer] platform.
Assessment / Plan
Fevers
- drug related fever with nitrofurantoin on the differential - held
- blood cultures x2 from 12/30 one set with CONS most likely a contaminant, blood cultures will be repeated x2 sets today
- ua was negative 48 hours ago
- CXR without acute findings
- covid and influneza screens negative
- follow on vancomycin and zosyn
Chronic Diarrhea
- outside of immunosuppression, there are few infectious causes of chronic diarrhea - giardia and crypto are the main concern and have been ruled out
- follow up with GI, she is planned for outpatient colonoscopy
[2025-01-01] MEDS: VANCOCIN 530 MG IV (15:03)
[2025-01-01 16:04] LABS: Glucose - Point of Care 133 mg/dl (70-99)
[2025-01-01] MEDS: ZOSYN 50 IV (17:25)
[2025-01-01] MEDS: LOVENOX 40 MG SC (17:26)
[2025-01-01] MEDS: LIPITOR 80 MG PO (17:27)
--- NOTE | 2025-01-01 18:30 | PTCARENOTE ---
1830 Pt more awake and verbalizing. Recheck oral temp 102.2 , ordered to transfer pt to IMU unit. Explain to pt.
Transferred pt to room 3346 via bed (2 staff ), All personnel belongings packed with pt. Report given to IMU nurse. Notified pt's spouse via phone of new room transfer.
--- NOTE | 2025-01-01 19:00 | PTCARENOTE ---
Received patient in stretcher from [facility]. Patient able to slide herself over to the bed. AAO x3. VS stable, afebrile 99.4 orally. SR on monitor with HR 90's. Oriented patient to room. Will monitor.
[2025-01-01] MEDS: NEURONTIN 800 MG PO (21:00)
[2025-01-01] MEDS: VANCOCIN 150 IV (21:29)
[2025-01-01] MEDS: ARICEPT 10 MG PO (21:29)
[2025-01-01] MEDS: FEOSOL 325 MG PO (21:29)
[2025-01-01 21:43] LABS: Glucose - Point of Care 143 mg/dl (70-99)
[2025-01-02] VITALS (12 sets, daily range): BP systolic 96–136; BP diastolic 62–87
[2025-01-02] MEDS: NSS 1000 IV ×2 (01:30→15:59)
[2025-01-02] MEDS: ZOSYN 50 IV ×4 (01:30→23:12)
--- NOTE | 2025-01-02 01:45 | PTCARENOTE ---
Assumed care for patient overnight, received report from daysnjft RN. Pt AAOx3, forgetful at times, has a hard time with word recall. Pt drowsy but arousable. Afebrile oral temp 98.1. VSS. IVF cont. IV abx cont. NSR on the monitor. Pt ambulated to
the bedside commode with standby assistance. Pt denies any dizziness. Oral hygiene and full linen change. Pt educated on the call mayorga, call mayorga within reach.
[2025-01-02] MEDS: NORCO 5/325 2 TABLET PO ×2 (04:23→12:32)
[2025-01-02 06:03] LABS: Blood Urea Nitrogen 9 mg/dl (7-17); Calcium 8.2 mg/dl (8.4-10.2); Carbon Dioxide 26 mmol/L (22-30); Chloride 105 mmol/L (98-107); Estimated Creatinine Clearance 75 ml/min; Glucose 110 mg/dl (70-99); Magnesium 1.5 mg/dl (1.6-2.3); Potassium 3.2 mmol/L (3.5-5.1); Sodium 139 mmol/L (135-145); eGFR > 60.00
[2025-01-02 06:04] LABS: % Basophils 0.5 % (0-2); % Eosinophils 4.7 % (0-6); % Immature Granulocytes 0.6 % (0-0.5); % Lymphocytes 13.3 % (20.5-51.1); % Monocytes 10.9 % (1.7-9.3); Absolute Eosinophils 0.3 10^3/uL (0-0.7); Absolute Lymphocytes 0.9 10^3/uL (1.2-3.4); Absolute Monocytes 0.7 10^3/uL (0.1-0.6); Absolute Neutrophils 4.6 10^3/uL (1.4-6.5); Hemoglobin 11.4 g/dL (12.0-16.0); Mean Corp Hgb Conc. 33.5 g/dL (33.0-37.0); Mean Corpuscular Volume 89.5 fL (81.0-99.0); Nucleated Red Blood Cells % 0 %; Platelet Count 170 10^3/uL (130-400); Red Cell Dist. Width 13.2 % (11.5-14.5); White Blood Cell Count 6.6 10^3/uL (4.8-10.8)
[2025-01-02] MEDS: VANCOCIN 150 IV ×2 (06:18→17:41)
[2025-01-02 07:16] LABS: Glucose - Point of Care 133 mg/dl (70-99)
[2025-01-02] MEDS: NOVOLOG FLEXPEN-LOW RESISTANCE SC (09:02)
[2025-01-02] MEDS: NEURONTIN 400 MG PO (09:03)
[2025-01-02] MEDS: NORVASC 5 MG PO (09:03)
[2025-01-02] MEDS: LEXAPRO 20 MG PO (09:04)
[2025-01-02] MEDS: ASPIR LOW (ENTERIC COATED) 81 MG PO (09:04)
--- NOTE | 2025-01-02 09:09 | PHA.VAN.FU ---
Vancomycin Assessment / Plan
- Assessment
Renal Function: Stable
WBC's are: WNL
In the past 24 hrs, patient has been: Febrile (TMAX 104.2 F)
Concomitant Antimicrobials: PIPERACILLIN/TAZO
- Dosing Plan
Continue: VANCO 750MG Q12
- Monitoring Plan
Peak Level: 01/02 @2100
Trough Level: 01/03 @0530
- Follow Up
Pharmacy will continue to follow.
Vancomycin Follow UP
- -
Patient Age: 69
Patient Sex: Female
Vancomycin Day #: 2
Indication: Other
Requesting Provider: DR. GIUSEPPE PRAKASH
Height / Weight:
Height 5 ft 8 in
Actual Weight 62.737 kg
- Vital Signs / Lab Results
Temp Pulse Resp BP Pulse Ox
99.9 F 65 15 104/71 96
01/02/25 08:58 01/02/25 08:00 01/02/25 08:00 01/02/25 08:00 01/02/25 09:00
Lab Results - Hematology
12/30/24 12/31/24 01/02/25
21:41 05:41 05:30
WBC 11.7 H 6.5 6.6
Lab Results - Chemistry
12/30/24 12/31/24 01/02/25
21:41 05:41 05:30
BUN 9 8 9
Creatinine 0.7 0.6 0.7
Estimated Creat Clear 77 89 75
Albumin 4.3
12/30/24
21:42
Lactic Acid 1.4
Microbiology Results
12/30/24 21:41 Blood Culture - Preliminary
Blood/Venous No Growth in 48 hours- Final report to follow
12/31/24 16:56 Blood Culture - Preliminary
Blood/Venous No Growth in 24 hours- Final report to follow
12/31/24 16:56 Blood Culture - Preliminary
Blood/Venous No Growth in 24 hours- Final report to follow
12/31/24 09:12 Salmonella/Shigella Culture - Preliminary
Feces/Stool Culture in Progress
Campylobacter Culture - Preliminary
Culture in Progress
Stool Leukocytes - Final
12/30/24 21:41 Blood Culture - Preliminary
Blood/Venous Coagulase neg. staphylococcus
Additional testing on request
Gram Stain - Preliminary
12/31/24 09:12 Cryptosporidium/Giardia - Final
Feces/Stool Negative for Cryptosporidium and/or Giardia Lamblia
antigens.
C. difficile GDH Antigen & Toxins - Final
Negative for toxigenic C.difficile
- Final
Negative for Norovirus GI and GII.
--- NOTE | 2025-01-02 09:44 | W.PN.ID1 ---
Date of Service
Date of Service: January 02, 2025
Today's Communication
- follow on vancomycin and zosyn
Assessment / Plan
Fevers - improving or resolved
- drug related fever with nitrofurantoin on the differential - held
- blood cultures x2 from 12/30 one set with CONS most likely a contaminant, blood cultures x2 sets on 01/01 no growth to date
- ua was negative
- 01/01 CXR without acute findings
- covid and influneza screens negative
- follow on vancomycin and zosyn
Chronic Diarrhea
RA/Psoriatic arthritis reportedly not on immunosuppression (injections or recent steroids)
- more alert today - reconfirms that no recent injectable therapies she believes for about 2 years, also no recent courses of steroids
- outside of immunosuppression, there are few infectious causes of chronic diarrhea - giardia and crypto are the main concern and have been ruled out
- follow up with GI, she is planned for outpatient colonoscopy
Chief Complaint
-: Fever
Subjective / Review of Systems
fever may have resolved
bp stable - not on pressors
no reported events overnight
more alert today - reconfirms that no recent injectable therapies she believes for about 2 years, also no recent courses of steroids
stools now mashed potato consistency
Vital Signs / Physical Exam
Vital Signs
Vital Signs
Temp Pulse Resp BP Pulse Ox
99.9 F 65 15 104/71 96
01/02/25 08:58 01/02/25 08:00 01/02/25 08:00 01/02/25 08:00 01/02/25 09:00
Physical Exam
Constitutional: No Acute Distress
Cardiovascular: Regular Rate and S1/S2; Negative Murmur or Rub
Pulmonary: Clear and Symmetric; Negative Wheezes or Rales
Gastrointestinal: Soft, Non Tender, Non Distended and Normal Bowel Sounds
Skin: Warm and Dry; Negative Rash or Jaundice
Objective Data
Lab Data
Lab Results
01/02/25 05:30
01/02/25 05:30
Estimated Creat Clear 75 ml/min 01/02/25 05:30
Lactic Acid 1.4 mmol/L (0.7-2.0) 12/30/24 21:42
Total Bilirubin 0.7 mg/dl (0.2-1.3) 12/30/24 21:41
AST 30 U/L (14-36) 12/30/24 21:41
ALT 31 U/L (0-35) 12/30/24 21:41
Alkaline Phosphatase 77 U/L (38-126) 12/30/24 21:41
C-Reactive Protein 7.20 mg/L (0.0-10.00) 12/31/24 05:41
Most recent labs reviewed.
Micro Results:
01/02/25 05:30 Blood Culture - Pending
Blood/Venous
12/30/24 21:41 Blood Culture - Preliminary
Blood/Venous No Growth in 48 hours- Final report to follow
12/31/24 16:56 Blood Culture - Preliminary
Blood/Venous No Growth in 24 hours- Final report to follow
12/31/24 16:56 Blood Culture - Preliminary
Blood/Venous No Growth in 24 hours- Final report to follow
01/01/25 14:22 Blood Culture - Pending
Blood/Venous
12/31/24 09:12 Salmonella/Shigella Culture - Preliminary
Feces/Stool Culture in Progress
Campylobacter Culture - Preliminary
Culture in Progress
Shiga Toxin Test - Pending
Stool Leukocytes - Final
12/30/24 21:41 Blood Culture - Preliminary
Blood/Venous Coagulase neg. staphylococcus
Additional testing on request
Gram Stain - Preliminary
12/31/24 09:12 Cryptosporidium/Giardia - Final
Feces/Stool Negative for Cryptosporidium and/or Giardia Lamblia
antigens.
C. difficile [facility] Antigen & Toxins - Final
Negative for toxigenic C.difficile
- Final
Negative for Norovirus GI and GII.
12/30/24 21:41 Influenza Types A & B (JAMEL) - Final
Nasal Swab Negative for Influenza A & B, NAAT
Negative results must be combined with clinical observations
and patient history.
Nucleic Acid Amplification test (NAAT)performed on the
[employer] platform.
Chest X-Ray: Image Reviewed (my read: no infiltrates) and Report Reviewed
[2025-01-02 11:25] LABS: Glucose - Point of Care 174 mg/dl (70-99)
[2025-01-02] MEDS: NOVOLOG FLEXPEN-LOW RESISTANCE 1 UNITS SC (13:58)
--- NOTE | 2025-01-02 15:10 | W.PN.HOSP.TC ---
Today's Communication/Plan
-
Assessment / Plan
Assessment / Plan
Fever,
Unclear as to etiology of blood cultures no growth to date
Continue IV antibiotics broad-spectrum Zosyn/vancomycin
ID following
DMII
- continue metformin for now
- sliding scale insulin
h/o CVA
- continue aspirin statin
- continue her donepezil, memantine ordered for outpatient, has not start
h/o of tbi
Anticipated Discharge: 24 - 48 hours
Subjective/Interval History
-
Date of Service: January 02, 2025
Seen and examined. No new complaints. No acute overnight events.
Objective Data
-
Labs:
Laboratory Results
01/02/25
05:30
WBC 6.6
Hgb 11.4 L
Hct 34.0 L
Plt Count 170 D
Sodium 139
Potassium 3.2 L
Chloride 105
Carbon Dioxide 26
BUN 9
Creatinine 0.7
Glucose 110 H
Calcium 8.2 L
Vital Signs:
Vital Signs
Temp Pulse Resp BP Pulse Ox
97.7 F 81 15 97/74 98
01/02/25 11:30 01/02/25 12:06 01/02/25 12:06 01/02/25 12:06 01/02/25 12:06
I&O
01/01/25 01/02/25 01/03/25
06:59 06:59 06:59
Intake Total 120 / 120 1829 / 1830
Output Total 300 / 300
Balance 120 / 120 0 / 1530
Physical Exam
-
General: Well Developed and Well Nourished
HEENT: Normocephalic and Atraumatic
Respiratory: Clear to Auscultation
Cardiac: Regular Rhythm and S1/S2
Breast: Deferred by me
GI: Soft, Nontender, Nondistended and Normal Bowel Sounds
Skin: Warm
Neuro: Awake, Alert, Oriented and AO x 3
--- NOTE | 2025-01-02 15:18 | PTCARENOTE ---
Patient has remained afebrile today. VS stable. Spo2 96% on room air. Patient using bedside commode with assistance. Fall risk with bed alarm on. IV fluids and antibiotics infusing as ordered. Medicated with prn hydrocodone for chronic wrist
pain.
[2025-01-02] MEDS: KCL 40 MEQ PO (16:00)
[2025-01-02 16:38] LABS: Glucose - Point of Care 253 mg/dl (70-99)
[2025-01-02] MEDS: LIPITOR 80 MG PO (17:32)
[2025-01-02] MEDS: LOVENOX 40 MG SC (17:33)
[2025-01-02] MEDS: NOVOLOG FLEXPEN-LOW RESISTANCE 3 UNITS SC (17:37)
[2025-01-02] MEDS: NEURONTIN 800 MG PO (17:38)
[2025-01-02] MEDS: ARICEPT 10 MG PO (23:03)
[2025-01-02] MEDS: FEOSOL 325 MG PO (23:03)
[2025-01-02 23:41] LABS: Vancomycin Peak 19.2 ug/ml (18-26)
[2025-01-03] VITALS (13 sets, daily range): BP systolic 98–154; BP diastolic 64–122; PULSE 67–72; O2SAT 98
--- NOTE | 2025-01-03 02:51 | PTCARENOTE ---
Patient AAOx3, forgetful at times and states she has been having 'brain fog'. Afebrile. VSS. 96% on room air. Pt ambulating to the bathroom with standby assistance with the wires. IVF cont. IV abx cont. No complaints at this time. Bed alarm on as
patient can be forgetful. Call mayorga is within reach.
[2025-01-03] MEDS: NSS 1000 IV (04:44)
[2025-01-03] MEDS: NORCO 5/325 2 TABLET PO ×2 (05:15→14:39)
[2025-01-03] MEDS: VANCOCIN 150 IV (05:19)
[2025-01-03 05:52] LABS: Vancomycin Trough 14.7 ug/ml (5-20)
--- NOTE | 2025-01-03 06:29 | W.PN.HOSP.TC ---
Today's Communication/Plan
-
see a/p
Assessment / Plan
Assessment / Plan
Physical Exam
General: No acute distress, appears comfortable at this time
HEENT: Normocephalic and Atraumatic
Respiratory: Clear to Auscultation
Cardiac: Regular Rhythm and S1/S2
GI: Soft, Nontender, Nondistended and Normal Bowel Sounds
Skin: Warm
Neuro: Awake, Alert, Oriented and AO x 3, some memory issues noted
69F HTn HLD DM h/o CVA TBI memory loss here for evaluation weakness AMS chronic diarrhea and later Fever unknown origin.
Fever, since resolved
Unclear etiology possible drug rxn as per ID
blood cultures largely no growth to date, initial positive culture likely contaminant
ID eval appreciated empiric Vanc Zosyn Stopped, monitor off
DMII
- continue metformin
- sliding scale insulin
h/o CVA
h/o TBI
- continue aspirin statin
- continue her donepezil, memantine ordered for outpatient, has not start
RA/Psoriatic Arthritis
-resume Prednisone
hypokalemia
-monitor and replete as necessary
Chronic Diarrhea
-Stool studies neg
-imodium prn
-discussed with Gi, outpt follow up recommended
PT/OT appreciated home health
Full Code
Stable for downgrade to Tele
Discussed with patient and patient's Ted
I spent a total of 45 minutes with the patient or on the floor. More than 50% of this time involved counseling and coordination of care.
Anticipated Discharge: Within 24 hours
Subjective/Interval History
-
Date of Service: January 03, 2025
diarrhea persists non-bloody. Some memory issues noted, reporting diarrhea as few days. however confirms diarrhea has been a chronic issue for weeks/months. Otherwise no acute distress. Appears comfortable at this time.
Objective Data
-
Vital Signs:
Vital Signs
Temp Pulse Resp BP Pulse Ox
97.7 F 62 16 120/91 97
01/03/25 06:28 01/03/25 06:00 01/03/25 06:00 01/03/25 06:00 01/03/25 06:00
I&O
01/01/25 01/02/25 01/03/25
06:59 06:59 06:59
Intake Total 120 / 120 1830 / 1830 2280 / 2280
Output Total 300 / 300
Balance 120 / 120 1530 / 1530 2280 / 2280
--- NOTE | 2025-01-03 07:54 | PHA.VAN.FU ---
Vancomycin Assessment / Plan
- Assessment
Renal Function: Stable
WBC's are: WNL
In the past 24 hrs, patient has been: Afebrile
Concomitant Antimicrobials: pip/tazo
- Assessment - Therapeutic Drug Monitoring
Extrapolated Cmax (mcg/mL): 23.4
Peak level was drawn: More than 3 hours after previous dose
Extrapolated Cmin (mcg/mL): 14.4
Trough Drawn: Appropriately
Levels were drawn: At steady state
Calculated AUC (mcg*h/mL): 446
Calculated ke: 0.0443
Calculated half life (H): 15.7
Calculated Vd (L): 75.98
Calculated Vanc CL (ml/min): 56.05
vancomycin peak was drawn more than 3 hours after dose infused; PK calculations may not be accurate. Trough of 14.7 is appropriate. Continue current dosing.
- Dosing Plan
Continue: vanc 750 mg q12h
- Monitoring Plan
Trough Level: repeat trough AM 01/04/25
- Follow Up
Pharmacy will continue to follow.
Vancomycin Follow UP
- -
Patient Age: 69
Patient Sex: Female
Vancomycin Day #: 3
Indication: Other
Requesting Provider: DR. GIUSEPPE PRAKASH
Height / Weight:
Height 5 ft 8 in
Actual Weight 62.737 kg
- Vital Signs / Lab Results
Temp Pulse Resp BP Pulse Ox
97.7 F 62 16 120/91 97
01/03/25 06:28 01/03/25 06:00 01/03/25 06:00 01/03/25 06:00 01/03/25 06:00
Lab Results - Hematology
01/02/25
05:30
WBC 6.6
Lab Results - Chemistry
01/02/25
05:30
BUN 9
Creatinine 0.7
Estimated Creat Clear 75
Microbiology Results
01/02/25 05:30 Blood Culture - Preliminary
Blood/Venous No Growth in 24 hours- Final report to follow
12/30/24 21:41 Blood Culture - Preliminary
Blood/Venous No Growth in 72 hours- Final report to follow
12/31/24 16:56 Blood Culture - Preliminary
Blood/Venous No Growth in 48 hours- Final report to follow
12/31/24 16:56 Blood Culture - Preliminary
Blood/Venous No Growth in 48 hours- Final report to follow
01/01/25 14:22 Blood Culture - Preliminary
Blood/Venous No Growth in 24 hours- Final report to follow
12/31/24 09:12 Salmonella/Shigella Culture - Final
Feces/Stool No Salmonella, Shigella, Aeromonas or Plesiomonas species
isolated.
Campylobacter Culture - Final
No Campylobacter species isolated.
Stool Leukocytes - Final
12/30/24 21:41 Blood Culture - Preliminary
Blood/Venous Coagulase neg. staphylococcus
Additional testing on request
Gram Stain - Preliminary
Therapeutic Drug Monitoring
Vancomycin Peak 19.2 ug/ml (18-26) 01/02/25 23:11
Vancomycin Trough 14.7 ug/ml (5-20) 01/03/25 05:13
--- NOTE | 2025-01-03 08:00 | PTCARENOTE ---
received patient at change of shift from previous RN. walking rounds completed. Pt AAOX3, forgetful at times with some difficulty with word finding. standby assist to bathroom. pt ambulated to bathroom and had bowel movement. SR on telemetry heart
rate in 60s. pulses palpable. no edema. pt on room air, lung sounds clear. active bowel sounds. voiding in bathroom without difficulty. pt updated on plan of care. see worklist for full nursing assessment and interventions.
[2025-01-03] MEDS: NOVOLOG FLEXPEN-LOW RESISTANCE SC (08:08)
[2025-01-03] MEDS: NORVASC 5 MG PO (08:09)
[2025-01-03] MEDS: ASPIR LOW (ENTERIC COATED) 81 MG PO (08:09)
[2025-01-03] MEDS: ZOSYN 50 IV (08:09)
[2025-01-03] MEDS: NEURONTIN 400 MG PO (08:09)
[2025-01-03] MEDS: LEXAPRO 20 MG PO (08:09)
[2025-01-03 08:19] LABS: Glucose - Point of Care 131 mg/dl (70-99)
--- NOTE | 2025-01-03 08:29 | W.PN.ID1 ---
Date of Service
Date of Service: January 03, 2025
Today's Communication
- drug related fever due to nitrofurantoin suspected
- blood cultures x2 from 12/30 one set with CONS most likely a contaminant, blood cultures x2 sets on 01/01 no growth to date
- 12/31 blood cultures x2 no growth to date
- stop vancomycin and zosyn
- suggest observing overnight
Assessment / Plan
Fevers - improving or resolved
- drug related fever due to nitrofurantoin suspected
- blood cultures x2 from 12/30 one set with CONS most likely a contaminant, blood cultures x2 sets on 01/01 no growth to date
- 12/31 blood cultures x2 no growth to date
- stop vancomycin and zosyn
- suggest observing overnight
Chronic Diarrhea
RA/Psoriatic arthritis reportedly not on immunosuppression (injections or recent steroids)
- outside of immunosuppression, there are few infectious causes of chronic diarrhea - giardia and crypto are the main concern and have been ruled out
- follow up with GI, she is planned for outpatient colonoscopy
Chief Complaint
-: Fever
Subjective / Review of Systems
no further fevers
bp stable
forgetful
no events reported overnight
Vital Signs / Physical Exam
Vital Signs
Vital Signs
Temp Pulse Resp BP Pulse Ox
97.7 F 67 16 120/71 97
01/03/25 06:28 01/03/25 08:09 01/03/25 06:00 01/03/25 08:09 01/03/25 06:00
Physical Exam
Constitutional: No Acute Distress
Cardiovascular: Regular Rate and S1/S2; Negative Murmur or Rub
Pulmonary: Clear and Symmetric; Negative Wheezes or Rales
Gastrointestinal: Soft, Non Tender, Non Distended and Normal Bowel Sounds
Skin: Warm and Dry; Negative Rash or Jaundice
Objective Data
Lab Data
Lab Results
01/02/25 05:30
01/02/25 05:30
Estimated Creat Clear 75 ml/min 01/02/25 05:30
Lactic Acid 1.4 mmol/L (0.7-2.0) 12/30/24 21:42
Total Bilirubin 0.7 mg/dl (0.2-1.3) 12/30/24 21:41
AST 30 U/L (14-36) 12/30/24 21:41
ALT 31 U/L (0-35) 12/30/24 21:41
Alkaline Phosphatase 77 U/L (38-126) 12/30/24 21:41
C-Reactive Protein 7.20 mg/L (0.0-10.00) 12/31/24 05:41
Most recent labs reviewed.
Micro Results:
01/02/25 05:30 Blood Culture - Preliminary
Blood/Venous No Growth in 24 hours- Final report to follow
12/30/24 21:41 Blood Culture - Preliminary
Blood/Venous No Growth in 72 hours- Final report to follow
12/31/24 16:56 Blood Culture - Preliminary
Blood/Venous No Growth in 48 hours- Final report to follow
12/31/24 16:56 Blood Culture - Preliminary
Blood/Venous No Growth in 48 hours- Final report to follow
01/01/25 14:22 Blood Culture - Preliminary
Blood/Venous No Growth in 24 hours- Final report to follow
12/31/24 09:12 Salmonella/Shigella Culture - Final
Feces/Stool No Salmonella, Shigella, Aeromonas or Plesiomonas species
isolated.
Campylobacter Culture - Final
No Campylobacter species isolated.
Shiga Toxin Test - Pending
Stool Leukocytes - Final
12/30/24 21:41 Blood Culture - Preliminary
Blood/Venous Coagulase neg. staphylococcus
Additional testing on request
Gram Stain - Preliminary
12/31/24 09:12 Cryptosporidium/Giardia - Final
Feces/Stool Negative for Cryptosporidium and/or Giardia Lamblia
antigens.
C. difficile GDH Antigen & Toxins - Final
Negative for toxigenic C.difficile
- Final
Negative for Norovirus GI and GII.
12/30/24 21:41 Influenza Types A & B (JAMEL) - Final
Nasal Swab Negative for Influenza A & B, NAAT
Negative results must be combined with clinical observations
and patient history.
Nucleic Acid Amplification test (NAAT)performed on the
[employer] platform.
[2025-01-03 11:44] LABS: Hematocrit 31.3 % (37.0-47.0); Hemoglobin 10.4 g/dL (12.0-16.0); Mean Corp Hgb Conc. 33.2 g/dL (33.0-37.0); Mean Corpuscular Hgb 30.1 pg (27.0-31.0); Mean Corpuscular Volume 90.7 fL (81.0-99.0); Mean Platelet Volume 9.1 fL (7.4-10.4); Platelet Count 164 10^3/uL (130-400); Red Blood Cell Count 3.45 10^6/uL (4.20-5.40); Red Cell Dist. Width 13.2 % (11.5-14.5); White Blood Cell Count 5.6 10^3/uL (4.8-10.8)
[2025-01-03 12:16] LABS: Blood Urea Nitrogen 8 mg/dl (7-17); Calcium 8.3 mg/dl (8.4-10.2); Carbon Dioxide 26 mmol/L (22-30); Chloride 109 mmol/L (98-107); Estimated Creatinine Clearance 66 ml/min; Glucose 214 mg/dl (70-99); Magnesium 1.7 mg/dl (1.6-2.3); Phosphorus 3.5 mg/dl (2.5-4.5); Potassium 3.4 mmol/L (3.5-5.1); Sodium 141 mmol/L (135-145); eGFR > 60.00
[2025-01-03 13:11] LABS: Glucose - Point of Care 162 mg/dl (70-99)
[2025-01-03] MEDS: NOVOLOG FLEXPEN-LOW RESISTANCE 1 UNITS SC ×2 (13:20→18:31)
[2025-01-03] MEDS: IMODIUM 2 MG PO (14:40)
[2025-01-03] MEDS: LIPITOR 80 MG PO (17:29)
[2025-01-03] MEDS: NEURONTIN 800 MG PO (17:30)
[2025-01-03] MEDS: LOVENOX 40 MG SC (17:30)
[2025-01-03 17:40] LABS: Glucose - Point of Care 155 mg/dl (70-99)
[2025-01-03] MEDS: ARICEPT 10 MG PO (19:29)
[2025-01-03] MEDS: FEOSOL 325 MG PO (19:29)
[2025-01-03] MEDS: MAGNESIUM SULFATE 50 IV (20:43)
[2025-01-03] MEDS: KCL 40 MEQ PO (20:43)
[2025-01-03 22:04] LABS: Glucose - Point of Care 153 mg/dl (70-99)
[2025-01-04 02:14] VITALS: BP 127/77
[2025-01-04 05:12] LABS: Hematocrit 30.6 % (37.0-47.0); Mean Corp Hgb Conc. 32.7 g/dL (33.0-37.0); Mean Corpuscular Hgb 29.7 pg (27.0-31.0); Mean Corpuscular Volume 90.8 fL (81.0-99.0); Mean Platelet Volume 9.1 fL (7.4-10.4); Platelet Count 178 10^3/uL (130-400); Red Blood Cell Count 3.37 10^6/uL (4.20-5.40); Red Cell Dist. Width 13.2 % (11.5-14.5); White Blood Cell Count 6.4 10^3/uL (4.8-10.8)
[2025-01-04 05:58] LABS: Blood Urea Nitrogen 7 mg/dl (7-17); Calcium 8.7 mg/dl (8.4-10.2); Carbon Dioxide 27 mmol/L (22-30); Chloride 115 mmol/L (98-107); Estimated Creatinine Clearance 75 ml/min; Glucose 126 mg/dl (70-99); Magnesium 2.2 mg/dl (1.6-2.3); Phosphorus 3.8 mg/dl (2.5-4.5); Sodium 144 mmol/L (135-145); eGFR > 60.00
--- NOTE | 2025-01-04 06:10 | PTCARENOTE ---
No acute events overnight. Afebrile. Forgetful.
[2025-01-04 08:11] LABS: Glucose - Point of Care 124 mg/dl (70-99)
[2025-01-04] MEDS: NOVOLOG FLEXPEN-LOW RESISTANCE SC (08:27)
[2025-01-04] MEDS: NEURONTIN 400 MG PO (08:28)
[2025-01-04] MEDS: VITAMIN D3 (cholecalciferol) 25 MCG PO (08:28)
[2025-01-04] MEDS: VITAMIN B-12 1000 MCG PO (08:29)
[2025-01-04] MEDS: NORVASC 5 MG PO (08:29)
[2025-01-04 08:30] VITALS: BP 133/90
[2025-01-04] MEDS: OSCAL CAL 500 500 MG PO (08:31)
[2025-01-04] MEDS: LEXAPRO 20 MG PO (08:31)
[2025-01-04] MEDS: ASPIR LOW (ENTERIC COATED) 81 MG PO (08:31)
[2025-01-04] MEDS: DELTASONE 10 MG PO (08:31)
[2025-01-04] MEDS: NORCO 5/325 2 TABLET PO (08:37)
--- NOTE | 2025-01-04 08:57 | PTCARENOTE ---
Pt AAOx3 pleasant and cooperative forgetful at times, lungs are clear. Co of r wrist pain due to RA pain meds given as ordered.
--- NOTE | 2025-01-04 09:30 | W.PN.ID1 ---
Date of Service
Date of Service: January 04, 2025
Today's Communication
- remains well off of vancomycin and zosyn
- stable for dc from ID perspective
Assessment / Plan
Fevers - resolved
- drug related fever due to nitrofurantoin suspected
- blood cultures x2 from 12/30 one set with CONS most likely a contaminant, blood cultures x2 sets on 01/01 no growth to date
- 12/31 blood cultures x2 no growth to date
- remains well off of vancomycin and zosyn
- stable for dc from ID perspective
Chronic Diarrhea
RA/Psoriatic arthritis reportedly not on immunosuppression (injections or recent steroids)
- outside of immunosuppression, there are few infectious causes of chronic diarrhea - giardia and crypto are the main concern and have been ruled out
- follow up with GI, she is planned for outpatient colonoscopy
Chief Complaint
-: Fever
Subjective / Review of Systems
remains afebrile
bp stable
no reported events overnight
no new complaints
Vital Signs / Physical Exam
Vital Signs
Vital Signs
Temp Pulse Resp BP Pulse Ox
99.3 F 63 17 133/90 96
01/04/25 07:37 01/04/25 08:30 01/04/25 08:30 01/04/25 08:30 01/04/25 09:19
Physical Exam
Constitutional: No Acute Distress
Cardiovascular: Regular Rate and S1/S2; Negative Murmur or Rub
Pulmonary: Clear and Symmetric; Negative Wheezes or Rales
Gastrointestinal: Soft, Non Tender, Non Distended and Normal Bowel Sounds
Skin: Warm and Dry; Negative Rash or Jaundice
Objective Data
Lab Data
Lab Results
01/04/25 04:54
01/04/25 04:54
Estimated Creat Clear 75 ml/min 01/04/25 04:54
Lactic Acid 1.4 mmol/L (0.7-2.0) 12/30/24 21:42
Total Bilirubin 0.7 mg/dl (0.2-1.3) 12/30/24 21:41
AST 30 U/L (14-36) 12/30/24 21:41
ALT 31 U/L (0-35) 12/30/24 21:41
Alkaline Phosphatase 77 U/L (38-126) 12/30/24 21:41
C-Reactive Protein 7.20 mg/L (0.0-10.00) 12/31/24 05:41
Most recent labs reviewed.
Micro Results:
01/02/25 05:30 Blood Culture - Preliminary
Blood/Venous No Growth in 48 hours- Final report to follow
12/30/24 21:41 Blood Culture - Preliminary
Blood/Venous No Growth in 4 days- Final report to follow
12/31/24 16:56 Blood Culture - Preliminary
Blood/Venous No Growth in 72 hours- Final report to follow
12/31/24 16:56 Blood Culture - Preliminary
Blood/Venous No Growth in 72 hours- Final report to follow
01/01/25 14:22 Blood Culture - Preliminary
Blood/Venous No Growth in 48 hours- Final report to follow
12/31/24 09:12 Salmonella/Shigella Culture - Final
Feces/Stool No Salmonella, Shigella, Aeromonas or Plesiomonas species
isolated.
Campylobacter Culture - Final
No Campylobacter species isolated.
Shiga Toxin Test - Final
No E. coli Shiga Toxin 1 or 2 detected.
Stool Leukocytes - Final
12/30/24 21:41 Blood Culture - Preliminary
Blood/Venous Coagulase neg. staphylococcus
Additional testing on request
Gram Stain - Preliminary
12/31/24 09:12 Cryptosporidium/Giardia - Final
Feces/Stool Negative for Cryptosporidium and/or Giardia Lamblia
antigens.
C. difficile GDH Antigen & Toxins - Final
Negative for toxigenic C.difficile
- Final
Negative for Norovirus GI and GII.
12/30/24 21:41 Influenza Types A & B (JAMEL) - Final
Nasal Swab Negative for Influenza A & B, NAAT
Negative results must be combined with clinical observations
and patient history.
Nucleic Acid Amplification test (NAAT)performed on the
[employer] platform.
--- NOTE | 2025-01-04 11:35 | W.PN.HOSP.TC ---
Today's Communication/Plan
-
discharge
Assessment / Plan
Assessment / Plan
Physical Exam
General: No acute distress, appears comfortable at this time
HEENT: Normocephalic and Atraumatic
Respiratory: Clear to Auscultation
Cardiac: Regular Rhythm and S1/S2
GI: Soft, Nontender, Nondistended and Normal Bowel Sounds
Skin: Warm
Neuro: AO x 3, conversant coherent. some memory issues noted
69F HTn HLD DM h/o CVA TBI memory loss here for evaluation weakness AMS chronic diarrhea and later Fever unknown origin.
Fever, since resolved
Unclear etiology possible drug rxn as per ID
blood cultures largely no growth to date, initial positive culture likely contaminant
ID eval appreciated empiric Vanc Zosyn Stopped, has remained stable off abx
DMII
- continue metformin
- sliding scale insulin
h/o CVA
h/o TBI
- continue aspirin statin
- continue her donepezil, memantine ordered for outpatient, has not start
RA/Psoriatic Arthritis
-resumed Prednisone, cont
hypokalemia
-monitor and replete as necessary
Chronic Diarrhea
-Stool studies neg
-imodium prn
-discussed with Gi, outpt follow up recommended
PT/OT appreciated home health
Full Code
Medically stable for discharge home with home services and outpatient follow up recommendations.
Discussed with patient and patient's daughter Екатерина
Total Time Preparing Discharge __40 minutes including examination of the patient, summary of the hospital stay, instructions for continuing care to all relevant caregivers; and preparation of discharge records, prescriptions, and referral
forms if necessary.
Anticipated Discharge: Today
Subjective/Interval History
-
Date of Service: January 04, 2025
Seen and examined at bedside in no acute distress sitting up comfortably in bed. Overall reports feeling well. Eager to go home
Objective Data
-
Labs:
Laboratory Results
01/04/25
04:54
WBC 6.4
Hgb 10.0 L
Hct 30.6 L
Plt Count 178
Sodium 144
Potassium 4.0
Chloride 115 H
Carbon Dioxide 27
BUN 7
Creatinine 0.7
Glucose 126 H
Calcium 8.7
Vital Signs:
Vital Signs
Temp Pulse Resp BP Pulse Ox
99.2 F 66 11 133/90 96
01/04/25 11:35 01/04/25 10:00 01/04/25 10:00 01/04/25 08:30 01/04/25 09:19
I&O
01/03/25 01/04/25 01/05/25
06:59 06:59 06:59
Intake Total 2280 / 2280 1010 / 1010
Balance 2280 / 2280 1010 / 1010
--- NOTE | 2025-01-04 12:19 | W.DCSUMMARY ---
Discharge Summary
Discharge Data
Date of Admission: 01/03/25
Date of Discharge: 01/04/25
-
Pending Results: Yes
Additional Pending Results:
official culture results
Discharge Plan
-
Patient Disposition: Home with Home Care
Discharge Diagnosis/Procedures: Fall
Fever unknown origin, possible drug reaction vs self-limited acute viral syndrome (not COVID or Flu, tested negative)
Chronic Diarrhea
Condition: Fair
Diet: As tolerated and Diabetic, Carb Controlled
Activity: As tolerated
Driving Restrictions: Not until seen by your Dr
Bathing Restrictions: None
Other Services: PT and OT
Activity Restrictions/Additional Instructions:
Follow up with primary care provider in 1 week of discharge and follow up with GI to reschedule your outpatient colonoscopy.
Imodium has been prescribed as needed for diarrhea.
For now it is ok to resume you home medication Macrobid. Medication should be stopped if your develop fever after use.
Please take medications as prescribed/recommended and follow up with primary care provider and/or other healthcare provider involved in your care for refills and/or further adjustment to your medication regimen as necessary.
Referrals:
Yareli Mckeon PA-C [Family Provider] - in one week
Dawna Suazo DO [Active] - in two weeks
Prescriptions:
New
loperamide 2 mg Capsule
2 mg PO Q6HPRN PRN (Reason: diarrhea) Qty: 28 0RF
Continued
metformin 500 mg Tablet
500 mg PO QPM
atorvastatin 80 mg Tablet
80 mg PO QPM
gabapentin 400 mg Capsule
800 mg PO HS
amlodipine 5 mg Tablet
5 mg PO DAILY
aspirin 81 mg Tablet,Delayed Release (Dr/Ec)
81 mg PO DAILY
escitalopram oxalate 20 mg Tablet
20 mg PO DAILY
Thc cream
1 applic topical TIDPRN PRN (Reason: arthirits)
Rx Instructions:
wrists
metformin 500 mg tablet
1,000 mg PO DAILY
hydrocodone-acetaminophen 10-325 mg Tablet
1 tab PO Q6HPRN PRN (Reason: SEVERE PAINS)
memantine 5 mg Tablet
10 mg PO DIRECTED
Rx Instructions:
starting 12/28/24 take one tablet qpm for 1 week, then 1 tablet bid for 1 week then 1 tablet am and 2 tabs qpm for 1 week then 2 tabs bid
nitrofurantoin monohyd/m-cryst [Macrobid] 100 mg Capsule
100 mg PO QPM
Taltz Syringe 80 mg/mL Syringe
80 mg SC Q4W
prednisone 10 mg Tablet
10 mg PO DAILY
Rx Instructions:
for 90 days
donepezil 10 mg Tablet
10 mg PO HS
cyanocobalamin (vitamin B-12) 1,000 mcg Tablet
1,000 mcg PO DAILY
calcium carbonate [Calcium 600] 600 mg calcium (1,500 mg) Tablet
600 mg PO DAILY
ferrous sulfate 325 mg (65 mg iron) Tablet
325 mg PO QPM
cholecalciferol (vitamin D3) [Vitamin D3] 25 mcg (1,000 unit) Tablet
25 mcg PO DAILY
Boswellia samanta extract 307 mg Tablet
250 mg PO DAILY
Discharge Orders:
Discharge Patient (As Directed); Ordered 01/04/25
Ordered By: Jorge Reyes
Discharge Date and Time
Print Language: AMHARIC
--- NOTE | 2025-01-04 12:21 | VNURNOTE ---
Home Health Liaison met with patient and daughter at bedside to discuss [facility] nurse/therapy, visits, schedule and homebound status. Both are agreeable and understand that visits at home will be 2-3 x per week to assess and teach medical management.
Both are aware that [facility] will contact them for start of care in 1-2 days after discharge from .
[facility] referral completed in [facility].
[2025-01-04 12:29] LABS: Glucose - Point of Care 292 mg/dl (70-99)
[2025-01-04] MEDS: NOVOLOG FLEXPEN-LOW RESISTANCE 3 UNITS SC (12:55)
[2025-01-04 14:22] VITALS: BP 122/65
--- NOTE | 2025-01-04 15:39 | PTCARENOTE ---
Pt dc waiting down stairs , called p review dc instructions, he stated it was not necessary . Pt dc with written instructions, via wc
--- NOTE | 2025-01-04 16:25 | CM ---
Patient with Hx CVA & TBI with Dx Fever w Unclear etiology possible drug reaction. PT recommends outpatient therapy, OT recommends HH.
Met with patient and daughter Екатерина; both agree with discharge home today. IMM completed. Discussed HH vs outpatient therapy- daughter prefers patient have HH and chooses [facility]. Daughter asking for how to get more assistance to help coordinate her
mother's care- informed her will request SW through [facility]. Also provided daughter with phone # for [facility]. Visiting [place] [facility] will resume service once patient returns home.
Referral to [facility] for SN/PT/OT and SW.
Plan [facility] today [facility], with resumption caregivers, with family.
== END 2025-01-04 15:46 | disposition home health service (06) | DRG 204 ==
LOC: IMU 07:55
PROVIDERS: Hospitalist; Nurse Practitioner; Nurse Practitioner Family; ADMITTING PHYSICIAN Internal Medicine; ATTENDING PHYSICIAN Internal Medicine; CONSULT PHYSICIAN Student in an Organized Health Care Education/Training Program; EMERGENCY PHYSICIAN Student in an Organized Health Care Education/Training Program; FAMILY PHYSICIAN Physician Assistant Medical
DX: R05.2 Subacute cough (principal); K52.9 Noninfective gastroenteritis and colitis, unspecified; B34.9 Viral infection, unspecified; T50.995A Adverse effect of other drugs, medicaments and biological substances, initial encounter; E11.9 Type 2 diabetes mellitus without complications; M06.9 Rheumatoid arthritis, unspecified; E87.6 Hypokalemia; E86.0 Dehydration; F17.200 Nicotine dependence, unspecified, uncomplicated; L40.50 Arthropathic psoriasis, unspecified; Z85.3 Personal history of malignant neoplasm of breast; Z86.73 Personal history of transient ischemic attack (TIA), and cerebral infarction without residual deficits; Z79.899 Other long term (current) drug therapy; Z79.82 Long term (current) use of aspirin; Z90.11 Acquired absence of right breast and nipple; Z11.52 Encounter for screening for COVID-19
CPT/HCPCS: 51702; 70450; 71045; 71046; 80048; 80053; 80202; 81003; 82962; 83605; 83735; 84100; 84443; 85025; 85027; 86140; 87040; 87045; 87046; 87150; 87205; 87324; 87328; 87329; 87427; 87449; 87502; 87798; 87811; 89055; 93005; 96360; 96361; 97116; 97167; 97530; 97535; 99285

== ENCOUNTER 2025-01-05 16:00 | Inpatient (IN) | payer OTHER, SELFPAY ==
[2025-01-05] VITALS (15 sets, daily range): BP systolic 98–130; BP diastolic 64–85; BMI 20.7; BMI 21.8
[2025-01-05 12:20] LABS: % Basophils 0.2 % (0-2); % Eosinophils 0.7 % (0-6); % Immature Granulocytes 0.9 % (0-0.5); % Lymphocytes 1.9 % (20.5-51.1); % Monocytes 4.7 % (1.7-9.3); % Neutrophils 91.6 % (42.2-75.2); Absolute Eosinophils 0.1 10^3/uL (0-0.7); Absolute Immature Granulocytes 0.1 10^3/uL (0-0.05); Absolute Lymphocytes 0.2 10^3/uL (1.2-3.4); Absolute Monocytes 0.6 10^3/uL (0.1-0.6); Absolute Neutrophils 11.1 10^3/uL (1.4-6.5); Hematocrit 36.3 % (37.0-47.0); Hemoglobin 12.2 g/dL (12.0-16.0); Mean Corp Hgb Conc. 33.6 g/dL (33.0-37.0); Mean Corpuscular Hgb 30.1 pg (27.0-31.0); Mean Corpuscular Volume 89.6 fL (81.0-99.0); Mean Platelet Volume 9.2 fL (7.4-10.4); Nucleated Red Blood Cells % 0 %; Platelet Count 202 10^3/uL (130-400); Red Blood Cell Count 4.05 10^6/uL (4.20-5.40); Red Cell Dist. Width 12.9 % (11.5-14.5); White Blood Cell Count 12.1 10^3/uL (4.8-10.8)
[2025-01-05 12:22] LABS: ALT (SGPT) 50 U/L (0-35); AST (SGOT) 55 U/L (14-36); Albumin 4.5 g/dl (3.5-5.0); Alkaline Phosphatase 55 U/L (38-126); Blood Urea Nitrogen 13 mg/dl (7-17); Calcium 9.3 mg/dl (8.4-10.2); Carbon Dioxide 26 mmol/L (22-30); Chloride 108 mmol/L (98-107); Estimated Creatinine Clearance 76 ml/min; Glucose 153 mg/dl (70-99); Potassium 3.3 mmol/L (3.5-5.1); Sodium 144 mmol/L (135-145); Total Bilirubin 1.4 mg/dl (0.2-1.3); Total Protein 6.9 g/dl (6.3-8.2); eGFR > 60.00
[2025-01-05] MEDS: OFIRMEV 100 IV (12:29)
[2025-01-05] MEDS: NSS 2000 IV (12:29)
--- NOTE | 2025-01-05 12:36 | HPS.HSE ---
Family Physician
-
Family Physician: [facility] - PT NOT
Chief Complaint
-
Fever
History of Present Illness
69F HTn HLD DM h/o CVA TBI memory loss here for evaluation weakness AMS chronic diarrhea recently here for evaluation fever unknown origin treated for possible sepsis. Patient subsequently improved consistently afebrile, negative infection work up.
Vital signs stable, patient was in her usual state of health at discharge. At the time of discharge source of fever was thought to be due to possible acute viral syndrome (not COVID or Flu) vs possible drug reaction to Macrobid. Though drug
reaction to Macrobid seemed unlikely as patient had been on the medication for months, UTI prophylaxis, without issues. However following discharge, and after resuming home Macrobid, patient returns next day with confusion/lethargy and high fever.
Daughter noted patient had an episode of vomiting prior to EMS mushroom picker. Tachycardic with elevated white count, presentation also concerning possible sepsis. BP stable, lactic acidosis 3.4 since improved with 2L bolus to 2.1. Extensive imaging in
ED was largely neg for acute abn's, possible hepatitis was noted on CT abd/pelvis. Mild transaminitis noted in labs. Fever treated with IV Tylenol, patient's mental status improved as fever improved.
Medical History
Past Medical History
Past Medical History: Reports Other (as above)
Past Surgical History: Reports Other (as above)
Social History
Tobacco: Non-smoker
Alcohol: None
Drug: None
Personal:
Living: With Family
Family History
Family History: Not pertinent (reviewed)
Allergies / Home Medications
Allergies reflects when Allergies were last updated in [facility].
Home Medications with original date entered in [facility]
Allergy/Medication List:
Allergies
Allergy/AdvReac Type Severity Reaction Status Date / Time
nitrofurantoin AdvReac Severe Fever Unverified 01/05/25 16:49
vancomycin AdvReac vancomycin Verified 01/05/25 17:36
infusion
reaction
01/05/25
Home Medications
amlodipine 5 mg tablet 5 mg PO DAILY Blood Pressure 09/11/24
aspirin 81 mg tablet,delayed release 81 mg PO DAILY Blood Clot Prevention/Tx 09/11/24
atorvastatin 80 mg tablet 80 mg PO QPM High Cholesterol 09/11/24
escitalopram oxalate 20 mg tablet 20 mg PO DAILY Mental Health/Anxiety 09/11/24
gabapentin 400 mg capsule 400 mg PO BID NEUROPATHIC PAIN 09/11/24
metformin 500 mg tablet 1,000 mg PO DAILY Diabetes 09/11/24
metformin 500 mg tablet 500 mg PO QPM Diabetes 09/11/24
Boswellia samanta extract 307 mg tablet 250 mg PO DAILY Supplement 12/31/24
calcium carbonate (Calcium 600) 600 mg PO DAILY Supplement 12/31/24
cholecalciferol (vitamin D3) 25 mcg (1,000 unit) tablet (Vitamin D3) 25 mcg PO DAILY Supplement 12/31/24
cyanocobalamin (vitamin B-12) 1,000 mcg tablet 1,000 mcg PO DAILY Supplement 12/31/24
donepezil 10 mg tablet 10 mg PO HS Mental Health/Anxiety 12/31/24
ferrous sulfate 325 mg (65 mg iron) tablet 325 mg PO QPM Supplement 12/31/24
hydrocodone 10 mg-acetaminophen 325 mg tablet 1 tab PO Q6HPRN PRN SEVERE PAINS 12/31/24
memantine 5 mg tablet 10 mg PO DIRECTED Mental Health/Anxiety 12/31/24
nitrofurantoin monohydrate/macrocrystals 100 mg capsule (Macrobid) 100 mg PO QPM [employer] PROPHYLAXIS 12/31/24
prednisone 10 mg tablet 10 mg PO DAILY INFLAMMATION 12/31/24
ixekizumab 80 mg/mL subcutaneous syringe (Taltz Syringe) 80 mg SC MONTHLY 01/05/25
Review of Systems
-
A 12 point ROS was completed and negative except as noted: Yes
Constitutional: Reports Other (as below)
Physical Exam
Vital Signs
Vital Signs
Temp Pulse Resp BP Pulse Ox
104.2 F H 112 31 130/85 96
01/05/25 12:10 01/05/25 12:10 01/05/25 12:10 01/05/25 12:10 01/05/25 12:10
Physical Exam
General: Other (as below)
Laboratory Results
-
01/05/25 11:56
01/05/25 11:56
Laboratory Results
Total Bilirubin 1.4 mg/dl (0.2-1.3) H 01/05/25 11:56
AST 55 U/L (14-36) H 01/05/25 11:56
ALT 50 U/L (0-35) H 01/05/25 11:56
Alkaline Phosphatase 55 U/L (38-126) 01/05/25 11:56
Impression/Plan
-
ROS
General: reports fever chills
Neuro: Denies seizure shaking loss of consciousness dizziness vertigo
Psych: denies depression hallucinations confusion manic episodes
Endocrine: Denies polyuria polydipsia polyphagia heat/cold intolerance
HEENT: Denies blindness visual disturbances epistaxis
Pulmonary: denies coughing hemoptysis sneezing sob dyspnea on exertion
Cardiovascular: denies chest pain palpitations leg swelling
Hematology: denies signs symptoms of anemia easy bruising/bleeding
Gastrointestinal: reported vomiting nausea appetite loss
Genito-Urinary: denies retention incontinence dysuria
Musculoskeletal: reports b/l knee pain swelling
Dermatology: denies rash laceration bruising
Physical Exam
General: No pallor, cyanosis, or jaundice.
HEENT: Throat clear. PERRLA Normocephalic atraumatic, moist mucus membrane, forehead feels subjectively warm/feverish
NECK: Supple. No JVD Carotid Bruits
RESPIRATORY: Lungs clear to auscultation. No crackles wheezes stridor
CVS: S1, S2 normal. RRR. No murmur, rub or gallop.
ABDOMEN: Soft, non-tender. No distension. BS+/normal.
EXTREMITIES: No peripheral cyanosis or edema.
CHAIN MAKER MACHINE: Lethargic but arousable oriented x3 conversant coherent follows simple commands
IMPRESSION:
69F HTn HLD DM h/o CVA TBI memory loss here for evaluation weakness AMS chronic diarrhea recently here for evaluation fever unknown origin treated for possible sepsis. Patient subsequently improved consistently afebrile, negative infection work up.
Vital signs stable, patient was in her usual state of health at discharge. At the time of discharge source of fever was thought to be due to possible acute viral syndrome (not COVID or Flu) vs possible drug reaction to Macrobid. Though drug
reaction to Macrobid seemed unlikely as patient had been on the medication for months, UTI prophylaxis, without issues. However following discharge, and after resuming home Macrobid, patient returns next day with confusion/lethargy and high fever.
Daughter noted patient had an episode of vomiting prior to EMS mushroom picker. Tachycardic with elevated white count, presentation also concerning possible sepsis. BP stable, lactic acidosis 3.4 since improved with 2L bolus to 2.1. Extensive imaging in
ED was largely neg for acute abn's, possible hepatitis was noted on CT abd/pelvis. Mild transaminitis noted in labs. Fever treated with IV Tylenol and Ibuprofen, patient's mental status improving as fever improves.
PLAN:
#Severe Fever possible sepsis (fever tachycardia leukocytosis) unclear etiology
#Acute Toxic Metabolic Encephalopathy 2/2 fever
#Possible drug fever d/t Macrobid
#Lactic Acidosis
#chronic diarrhea
IMU admit
ID eval
IV tylenol ibuprofen prn Fever
IVF support
Clear liquid diet for now, advance as tolerated (goal diet carb controlled)
compazine prn nausea
Follow blood cultures
Cdiff neg
follow stool studies
no acute abn's noted CXR urinalysis CT head CT sinuses
macrobid discontinued indefinitely at this time
defer abx as per ID
#Mild transaminitis
#Possible hepatitis noted on CT abd/pelvis
monitor LFTs
DMII
- hold home metformin
- low dose sliding scale insulin
- update A1c
h/o CVA
h/o TBI
- continue aspirin statin
- continue her donepezil
RA/Psoriatic Arthritis
b/l knee pain swelling hx fall
-hold home prednisone at this time in lieu of severe infection concerns as above
-check knee X-rays
-lidocaine patches
-pain control
mild hypokalemia
-monitor and replete as necessary
-IVF support LR
Chronic Diarrhea
-Follow Stool studies
-outpatient GI follow up
dvt ppx Lovenox
GI ppx Protonix
Full Code
Discussed with patient, patient's daughter Екатерина, and son-in-law Jose Guadalupe
I spent a total of 80 minutes with the patient or on the floor. More than 50% of this time involved counseling and coordination of care.
--- NOTE | 2025-01-05 12:40 | ED.GENMED ---
History of Present Illness
General
Chief Complaint: Change in Mental Status
Source: patient, records, family, previous radiology exam and previous hospital records
Exam Limitations: altered mental status
Time Seen by Provider: 01/05/25 12:07
Nursing documentation reviewed up to this point in time: agreed with
History of Present Illness
History of Present Illness:
69-year-old female prior stroke cognitive impairment returns with fever and confusion was admitted recently with fever seen by infectious disease looks like although it was thought to be due to drug fever from an antibiotic she was on for UTI
prophylaxis, was in a reasonably normal state of health at discharge, she did have a dose of Macrobid last evening, does have some chronic diarrhea, woke up this morning confused with left-sided weakness high fever she has had a stroke with
left-sided weakness previously but recovers well although tends to get weak when she fights a fever
History mainly obtained through the daughter at bedside review of the past medical records
Past History
Past History
ED Past Medical History: Asthma, Cancer (Breast carcinoma), CVA, HTN, Hypercholesterolemia, NIDDM, Psychiatric (Major depression) and Other (Psoriatic arthritis, rheumatoid arthritis, concussion August 2022, right knee hematoma)
ED Past Surgical History: Orthopedic (Rotator cuff repair 2011) and Other (Right mastectomy, inguinal herniorrhaphy)
Social History
Tobacco: Other (Distant smoker)
Alcohol: Chronic alcoholic
Drug: None
Personal:
Living: with family
Family History
Family History: Diabetes and Cancer
Review of Systems
Review of Systems
Unable to obtain full review of systems at this time due to: due to acuity
Other source history: family
All Other Systems: Not applicable
Phy Exam
Physical Exam
Physical Exam:
Physical Exam
General: Febrile ill-appearing female
Neck: Dry lips no pain with flexion of the neck neck is supple
Heart: Tachycardia
Lungs: no acute respiratory distress. clear bilaterally
Abdomen: Soft nontender
Neuro: Globally weak left greater than right sided
Skin: no rash
Psychiatric: Unable to assess
Extremities: no edema.
Course
Orders/Labs/Results
Orders:
Orders
01/05/25 Lunch
Clear Liquid
At Your Request: Limited Participation
01/05/25 11:44
Electrocardiogram (*1) Urgent
Reason for Study: Tachycardia
EKG- Treatment ONCE
01/05/25 11:56
CMP [Comprehensive Metabolic Panel] Urgent
COVID-19 Antigen Urgent
Source: Nasal Swab
Complete Blood Count/With Diff Urgent
Influenza A+B Rapid Molecular Urgent
DAVID Source: Nasal Swab
Specimen Description:
01/05/25 12:25
Straight cath- Treatment ONCE
CR Chest Portable - 1 View Urgent
Comment:
Reason For Exam: fever
Reason Study Needs to be Portable: Patient Unstable
01/05/25 12:26
Acetaminophen 1000MG/100Ml [Ofirmev] 1,000 mg in 100 ml IV ONCE
Acetaminophen IV Indication:: ED Narcotic Naive Pt-ONCE
01/05/25 12:27
0.9% Sodium Chloride 1000 ml [Nss] 2,000 ml IV BOLUS
01/05/25 12:32
CT Abd/pelvis W Iv Cont Urgent
Comment:
Reason For Exam: fever unknown soucre
CT Head W/o Iv Contrast Urgent
Comment:
Reason For Exam: fever
CT Sinuses W/o Iv Contrast Urgent
Comment:
Reason For Exam: fever
01/05/25 12:42
Lactic Acid Q4H
Comment: CANCEL 2nd LACTIC ACID IF 1st LACTIC ACID IS LESS THAN 2
Urinalysis Reflex To Culture Urgent
Date Specimen was Collected: 01/05/25
Time Specimen was Collected: 12:27
Blood Culture Q30M
DAVID Source: Blood/Venous
Specimen Description:
Blood Culture Q30M
DAVID Source: Blood/Venous
Specimen Description:
Stool Culture Urgent
DAVID Source: Feces/Stool
Specimen Description:
Date Specimen was Collected: 01/05/25
Time Specimen was Collected: 12:27
01/05/25 12:43
STOOL [C difficile Antigen & Toxins] Urgent
DAVID Source: Feces/Stool
Specimen Description:
Date Specimen was Collected: 01/05/25
Time Specimen was Collected: 12:27
01/05/25 14:53
Ibuprofen [Motrin] 400 mg PO NOW STA
Potassium Chloride [KCl] 40 meq PO NOW STA
01/05/25 15:20
Ibuprofen [Caldolor] 400 mg 0.9% Sodium Chloride 100 ml [Nss] 100 ml IV NOW
01/05/25 15:21
Admit/Transfer Patient As Directed
Co-Sign Provider:
Level of Care: Inpatient admission
Assign to:: IMU- Intermediate Care
Physician / Group: Jorge Reyes
Diagnosis: Fever possible Sepsis unclear Etiology
Reason for Hospitalization: Fever possible Sepsis unclear Etiology
Expected length of stay greater than two midnights?: Yes
ELOS- Estimated Length of Stay in days: 2
I certify the patient meets the requirements for IP care: Yes
PRN Pain Medication Management As Directed
May give lesser potent ordered pain med per pt: Yes
preference::
Protocol:: Medication orders for pain may be administered in a
manner that supports deferring to patient preference
when the pt is:
- Requesting an ordered lesser potent pain medication.
Least to most potent pain medications are defined
as: acetaminophen < NSAID < tramadol < opioids
(morphine, oxycodone, hydromorphone).
- Requesting a lesser dose of the same medication IF
ORDERED.
- Requesting a less intrusive route of administration
if both routes are prescribed by the provider (PO <
IV).
01/05/25 15:27
Code Status As Directed
Resuscitation Status: Full Code
01/05/25 15:45
Blood Culture Q30M
DAVID Source: Blood/Venous
Specimen Description:
01/05/25 15:46
Lactic Acid Q4H
Comment: CANCEL 2nd LACTIC ACID IF 1st LACTIC ACID IS LESS THAN 2
01/05/25 16:00
Lactated Ringers [Lr] 1,000 ml IV 70 mls/hr
01/05/25 16:30
Blood Culture Q30M
DAVID Source: Blood/Venous
Specimen Description:
01/05/25 17:15
Acetaminophen 1000MG/100Ml [Ofirmev] 1,000 mg in 100 ml IV Q6HPRN
Acetaminophen IV Indication:: No NV & No Enteral Access
Bisacodyl [Dulcolax] 10 mg RECTAL [id number] PRN
Docusate W/Senna [Senokot-S] 1 tablet PO BIDPRN PRN
Polyethylene Glycol Powder [Miralax] 17 grams PO DAILYPRN PRN
01/05/25 17:15
Activity As Directed
Activity Level: With Assistance
Precautions As Directed
Type of Precautions: Other
Comment: fall precautions
Vital Signs As Directed
Frequency: Per unit guidelines
DX Deep Vein Thrombosis Video Routine
01/05/25 17:27
Oxycodone [Roxicodone] 7.5 mg PO Q6HPRN PRN
01/05/25 18:00
Enoxaparin Sodium [Lovenox] 40 mg SC QPM
01/05/25 20:00
Gabapentin [Neurontin] 400 mg PO BID
01/05/25 22:00
Donepezil HCl [Aricept] 10 mg PO HS
01/06/25 04:36
Complete Blood Count/No Diff IN AM
Comprehensive Metabolic Panel IN AM
Magnesium IN AM
01/06/25 08:00
Aspirin Low Dose EC [Aspir Low (Enteric Coated)] 81 mg PO DAILY
Escitalopram Oxalate [Lexapro] 20 mg PO DAILY
01/07/25 05:21
Complete Blood Count/No Diff IN AM
Comprehensive Metabolic Panel IN AM
Magnesium IN AM
01/08/25 06:00
Complete Blood Count/No Diff IN AM
Comprehensive Metabolic Panel IN AM
Magnesium IN AM
01/09/25 06:00
Complete Blood Count/No Diff IN AM
Comprehensive Metabolic Panel IN AM
Magnesium IN AM
01/10/25 06:00
Complete Blood Count/No Diff IN AM
Comprehensive Metabolic Panel IN AM
Magnesium IN AM
01/11/25 06:00
Complete Blood Count/No Diff IN AM
Comprehensive Metabolic Panel IN AM
Magnesium IN AM
01/12/25 06:00
Complete Blood Count/No Diff IN AM
Comprehensive Metabolic Panel IN AM
Magnesium IN AM
Abnormal Lab Results
01/05/25 01/05/25 01/05/25
11:56 12:42 15:46
WBC 12.1 H 10^3/uL
(4.8-10.8)
RBC 4.05 L 10^6/uL
(4.20-5.40)
Hct 36.3 L %
(37.0-47.0)
Abs Immat Gran (auto) 0.1 H 10^3/uL
(0-0.05)
Absolute Neuts (auto) 11.1 H 10^3/uL
(1.4-6.5)
Absolute Lymphs (auto) 0.2 L 10^3/uL
(1.2-3.4)
Immature Gran % 0.9 H %
(0-0.5)
Neutrophils % 91.6 H %
(42.2-75.2)
Lymphocytes % 1.9 L %
(20.5-51.1)
Potassium 3.3 L mmol/L
(3.5-5.1)
Chloride 108 H mmol/L
(98-107)
Glucose 153 H mg/dl
(70-99)
Lactic Acid 3.4 H mmol/L 2.1 H mmol/L
(0.7-2.0) (0.7-2.0)
Total Bilirubin 1.4 H mg/dl
(0.2-1.3)
AST 55 H U/L
(14-36)
ALT 50 H U/L
(0-35)
01/05/25 11:56
01/05/25 11:56
Vital Signs
Initial and Last Documented VS:
Initial Vital Signs
Pulse Resp BP
112 43 119/76
01/05/25 11:53 01/05/25 11:53 01/05/25 11:53
Last Documented Vital Signs
Temp Pulse Resp BP Pulse Ox
99 F 56 20 136/70 96
01/07/25 03:08 01/07/25 06:00 01/07/25 06:00 01/07/25 06:00 01/07/25 04:00
*Critical Care Note
Total Time (30-74mins, 75-104mins- exclusive of procedures): 32
ED Attending Note
-
Portions of this chart may have been created with voice recognition software.� Occasional wrong word or��sound alike� substitutions may have occurred due to the inherent limitations of voice recognition software.
Discharge Plan
Departure
Patient Disposition: Admit
Date of Disposition: 01/05/25
Time of Disposition: 13:11
Admit to: Telemetry
Presentation/result/management discussed w/ accepting MD/DO: Hospitalist
Patient with high blood pressure during this ER visit?: No
Discharge Problem:
Fever
Interventions
Interventions:
*Risk Screen - Suicide Last Done: 01/05/25 12:10
*General Assessment Last Done: 01/05/25 12:10
*Neglect/Abuse Screening Last Done: 01/05/25 12:10
*ED- Fall Risk Assessment Last Done: 01/05/25 12:10
*ED COVID-19 Vaccine History Last Done: 01/05/25 12:10
*Nursing Disposition Last Done: 01/05/25 16:58
ED- Pulmonary Assessment Last Done: 01/05/25 12:10
ED-Psychological Assessment Last Done: 01/05/25 12:10
ED- Neurological Assessment Last Done: 01/05/25 12:10
ED- Cardiac Assessment Last Done: 01/05/25 12:10
ED Swallowing Screen Last Done: 01/05/25 12:10
Discharge Date and Time
Discharge Date/Time: 01/05/25 17:00
[2025-01-05 12:43] LABS: COVID-19 Antigen Negative (Negative)
[2025-01-05 13:27] LABS: Lactic Acid 3.4 mmol/L (0.7-2.0)
[2025-01-05 14:22] LABS: Urine Albumin Negative (Neg - Trace); Urine Bilirubin Negative (Negative); Urine Character Clear (Clear); Urine Color Yellow; Urine Glucose Negative (Negative); Urine Ketone Negative (Negative); Urine Leukocyte Negative (Negative); Urine Nitrite Negative (Negative); Urine Occult Blood Negative (Negative); Urine Urobilinogen Negative (Neg - 1+)
[2025-01-05] MEDS: LR 1000 IV (15:44)
[2025-01-05] MEDS: CALDOLOR 104 MG IV (15:55)
--- NOTE | 2025-01-05 16:03 | CON.ID ---
Consultation
-
Date/Time Consultation Requested: 01/06/24 12:31
Date/Time Consultation Performed: 01/05/25 16:05
Requesting Provider: Dr Perera
Performing Provider: Dr Wakefield
Reason for Consultation: FUO
Chief Complaint / Past History
Chief Complaint
fever
History of Present Illness
Ms Winkler is a 69 year old female with history of TBI, RA/psoriatic arthritis (no recent steroids or injections), DM2 who presented here for about a month of watery/loose stools without melena or hematochezia found to have fever and leukocytosis, a
broad workup was unrevealing, [employer] nitrofurantoin was stopped and her mental status dramatically improved. I assessed that fevers could have been a drug fever due to nitrofurantoin and this medication was stopped. Unfortunately on discharge it was
inadvertently restarted by her hospitalist. She was discharged home did take the dose of nitrofurantoin, then in the AM was weak, febrile and developed vomiting. Patient currently denies headaches, sinus tenderness, cough, sputum production,
nausea, constipation, dysuria, new rashes or joint pains. She did have an episdoe of loose stool in the ER.
Since arrival here rectal Ts were as high as 104.2, she has now converted to oral Ts, HR initially tachycardic now normal, BP overall stable, wbc on arrival 12, hgb 12, plt 202, there is a L shift, cr 0.7, lactic acid initially 3.4 now 2.1, t bili
1.4, ast 55, alt 50; lfts were normal when last assessed over a week ago, ua negative, covid ag remains negative, CT sinuses clear, CT head: chronic small vessel ischemic disease, no acute abnormality, ct a/p with IV contrast: periportal edema
suggestive of hepatitis, diverticulosis, CXR: clear lungs, C diff negative, stool culture in progress, blood cultures x4 obtained (note the first two sets were at the same time and functionally one set), she was started on vancomycin and had some
patchy erythema of the RUE - I recommended running the vancomycin more slowly, also on zosyn.
Past History
Additional Past Medical History:
Asthma,
Breast carcinoma
CVA,
essential HTN,
Hypercholesterolemia,
NIDDM,
Major depression
concussion August 2022,
right knee hematoma
Atrophic vaginitis
Primary osteoarthritis of both knees
Gait abnormality
Foot drop, left
Neuropathic pain
Cognitive impairment
Fatty liver
Low vitamin D level
Urgency incontinence
Additional Past Surgical History:
Rotator cuff repair 2011
Right mastectomy,
inguinal herniorrhaphy
Allergy History:
No Known Allergies Allergy (Verified 01/05/25 14:23)
Medications Reviewed: Yes
Social History
Tobacco: Non-Smoker
Alcohol: None
Drug: None
Family History
Family History: Not Pertinent
Review of Systems
Review of Systems
General: Fever and Chills
All systems: All other systems were reviewed and were negative
Vital Signs
Temp Pulse Resp BP Pulse Ox
102.6 F H 101 14 115/69 96
01/05/25 14:08 01/05/25 14:08 01/05/25 14:08 01/05/25 14:08 01/05/25 14:08
Physical Exam
Physical Exam
Constitutional: No Acute Distress
Cardiovascular: Regular Rate and S1/S2; Negative Murmur or Rub
Pulmonary: Clear and Symmetric; Negative Wheezes, Rales or Rhonchi
Gastrointestinal: Soft, Non Tender, Non Distended and Normal Bowel Sounds
Skin: Warm and Dry; Negative Rash or Jaundice
Lab / Diagnostic Study Results
01/05/25 11:56
01/05/25 11:56
Abs Immat Gran (auto) 0.1 10^3/uL (0-0.05) H 01/05/25 11:56
Absolute Neuts (auto) 11.1 10^3/uL (1.4-6.5) H 01/05/25 11:56
Absolute Lymphs (auto) 0.2 10^3/uL (1.2-3.4) L 01/05/25 11:56
Absolute Monos (auto) 0.6 10^3/uL (0.1-0.6) 01/05/25 11:56
Absolute Basos (auto) 0.0 10^3/uL (0-0.2) 01/05/25 11:56
Immature Gran % 0.9 % (0-0.5) H 01/05/25 11:56
Neutrophils % 91.6 % (42.2-75.2) H 01/05/25 11:56
Lymphocytes % 1.9 % (20.5-51.1) L 01/05/25 11:56
Monocytes % 4.7 % (1.7-9.3) 01/05/25 11:56
Eosinophils % 0.7 % (0-6) 01/05/25 11:56
Basophils % 0.2 % (0-2) 01/05/25 11:56
Lactic Acid 3.4 mmol/L (0.7-2.0) H 01/05/25 12:42
Microbiology Results
Micro:
01/05/25 15:45 Blood Culture - Pending
Blood/Venous
01/05/25 12:42 Blood Culture - Pending
Blood/Venous
01/05/25 12:43 C. difficile GDH Antigen & Toxins - Final
Feces/Stool Negative for toxigenic C.difficile
01/05/25 12:42 Blood Culture - Pending
Blood/Venous
01/05/25 12:42 Salmonella/Shigella Culture - Pending
Feces/Stool Campylobacter Culture - Pending
Shiga Toxin Test - Pending
01/05/25 11:56 Influenza Types A & B (JAMEL) - Final
Nasal Swab Negative for Influenza A & B, NAAT
Negative results must be combined with clinical observations
and patient history.
Nucleic Acid Amplification test (NAAT)performed on the
[employer] NOW platform.
Assessment / Plan
Relapse of fevers
Hepatitis
TME h/o TBI
- blood cultures x3 prior to starting antibiotics
- TTE
- ua negative
- CT ab/pelvis notable for possible hepatitis; mildly increased LFTs which is new from last visit and possibly an adr
- check hep a/b/c in the AM
- covid and influenza negative
- Stop nitrofurantoin
- continue vancomycin and zosyn
- avoid herbs/supplements - was apparently on boswellia extract
Chronic Diarrhea
RA/Psoriatic arthritis on Ixekizumab - not listed on prior medication reconciliation
Immunosuppression
- CMV viral load on serum; would require tissue biopsy for confirmation
- would typically be screened for TB prior to initiation
- stool culture in progress, C difficile neagativ
- consider GI input to possibly move up colonoscopy
[2025-01-05 16:09] LABS: Lactic Acid 2.1 mmol/L (0.7-2.0)
--- NOTE | 2025-01-05 16:24 | PHA.VAN.IN ---
Addendum entered and electronically signed by Karen Fatima, [facility] 01/05/25 17:36:
Vancomycin infusion reaction noted per RN and ID physician - will adjust rate of vancomycin infusion to be administered over 3 hours for the 1500mg loading dose and over 2 hours for the 750mg Q12 maintenance doses
Original Note:
Assessment
- Assessment
Renal Function: Appears similar to baseline
Concomitant Antimicrobials: ZOSYN
- Previous Dosing Experience
Previous Regimen: 750MG IV Q12H
Date of Regimen: 01/01/25
Provided Trough of: 14.7
Provided AUC of: 464 PREDICTED
Patient's SCR is: Similar to previous dosing experience
Patient's weight is: Elevated compared to previous dosing experience (01/01/25 WT = 62 KG)
AUC Dosing Plan
- Dosing Variables
Dosing Weight (kg): 63.5
Dosing CrCl (ml/min): 76
Vd coefficient (L/kg): 0.7
- Empiric Dosing
Initial / Loading Dose: 1500MG
Maintenance Regimen: 750MG IV Q12H
Estimated AUC (mcg*h/mL): 517
Estimated Peak (mcg*h/mL): 30.4
Estimated Trough (mcg/ml): 14.5
Estimated Half Life (H): 10.3
Pharmacokinetics Vancomycin I
- -
Patient Age: 69
Patient Sex: Female
Vancomycin Day #: 1
Indication: Bacteremia
Requesting Provider: SANGITA
Height / Weight:
Height 5 ft 9 in
Actual Weight 63.5 kg
Pertinent Past Medical History: RECENT ADMIT FOR SIMILAR
- Vital Signs / Lab Results
Temp Pulse Resp BP Pulse Ox
102.1 F H 98 21 114/75 93
01/05/25 16:08 01/05/25 16:08 01/05/25 16:08 01/05/25 16:08 01/05/25 16:08
Lab Results - Hematology
01/05/25
11:56
WBC 12.1 H
Lab Results - Chemistry
01/05/25
11:56
BUN 13
Creatinine 0.7
Estimated Creat Clear 76
Albumin 4.5
01/05/25 01/05/25
12:42 15:46
Lactic Acid 3.4 H 2.1 H
Lab Results - Urine
01/05/25
12:42
Urine Nitrite (Reflex) Negative
Leukocyte Esterase Rfl Negative
Microbiology Results
01/05/25 12:43 C. difficile GDH Antigen & Toxins - Final
Feces/Stool Negative for toxigenic C.difficile
01/05/25 11:56 Influenza Types A & B (JAMEL) - Final
Nasal Swab Negative for Influenza A & B, NAAT
Negative results must be combined with clinical observations
and patient history.
Nucleic Acid Amplification test (NAAT)performed on the
[employer] NOW platform.
[2025-01-05] MEDS: VANCOCIN 530 MG IV (16:31)
--- NOTE | 2025-01-05 16:50 | EDRN ---
this RN called the receiving IMU nurse and gave verbal report
--- NOTE | 2025-01-05 18:02 | PTCARENOTE ---
Received patient on admission from ED via stretcher with IVF and IV vanco infusing. ED RN disconnected both infusions while patient transferred to bed. Once vanco infusion reconnected patient's arm with red and splotchy areas above the IV site
appeared and patient c/o itching. Infusion stopped immediately and site flushed. TT sent to Dr Wakefield with picture of area. Also included in text was patient's temp: 99.6 oral and 101.4 axillary. BP 88/76 and repeat 102/64, HR 91, POx 96% on RA.
Instructed by Dr Wakefield to run over 2 hours and have pharmacy assist with adjusting rate. Complete TT forwarded to Karen Fatima who changed rate to be given over 3hrs rather than 1.5hrs. Infusion restarted and no reaction at this time.
Patient c/o b/l knee pain. Daughter states they are much more swollen than normal and that patient had fallen in the closet at home in the recent past. TT sent to Dr Reyes.
[2025-01-05 18:14] LABS: Glucose - Point of Care 146 mg/dl (70-99)
[2025-01-05] MEDS: PROTONIX IV 40 MG IV (18:24)
[2025-01-05] MEDS: NSS (PRESERVATIVE FREE) 10 ML IV (18:24)
[2025-01-05] MEDS: LIPITOR 80 MG PO (18:24)
[2025-01-05] MEDS: LOVENOX 40 MG SC (18:24)
[2025-01-05] MEDS: LIDOCAINE 4% PATCH 2 PATCH TOPICAL (18:38)
--- NOTE | 2025-01-05 18:43 | PTCARENOTE ---
Dr Reyes entered order for lidoderm patch to b/l knee which was placed; he also ordered xray. Patient due for zosyn. Vanco still infusing will ask night stocker RN to hang zosyn when vanco complete.
[2025-01-05] MEDS: ROXICODONE 7.5 MG PO (20:40)
[2025-01-05] MEDS: ARICEPT 10 MG PO (20:40)
[2025-01-05] MEDS: NEURONTIN 400 MG PO (20:41)
[2025-01-05] MEDS: ZOSYN 100 IV (20:43)
[2025-01-05 21:28] LABS: Glucose - Point of Care 203 mg/dl (70-99)
[2025-01-06] VITALS (16 sets, daily range): BP systolic 92–128; BP diastolic 62–86; PULSE 66–67; O2SAT 97
--- NOTE | 2025-01-06 02:50 | PTCARENOTE ---
Received pt from madeline RN. Pt aaox2-3, confused/forgetful at times. Bed alarm in use. Pt able to stand/pivot to stretcher for B/L knee XR. 7.5mg Roxicodone given @20:40 for pain in B/L knee and R wrist. Pt resting comfortably in bed at this time.
VSS. Care ongoing.
[2025-01-06] MEDS: ZOSYN 100 IV ×4 (03:03→19:19)
[2025-01-06] MEDS: OFIRMEV 100 IV (03:09)
--- NOTE | 2025-01-06 03:14 | PTCARENOTE ---
Pt with 102.8 oral temp. IV offirmev given @ 03:09
[2025-01-06 05:02] LABS: Hematocrit 28.9 % (37.0-47.0); Hemoglobin 9.8 g/dL (12.0-16.0); Mean Corp Hgb Conc. 33.9 g/dL (33.0-37.0); Mean Corpuscular Hgb 30.2 pg (27.0-31.0); Mean Corpuscular Volume 89.2 fL (81.0-99.0); Mean Platelet Volume 9.2 fL (7.4-10.4); Platelet Count 176 10^3/uL (130-400); Red Blood Cell Count 3.24 10^6/uL (4.20-5.40); Red Cell Dist. Width 13.2 % (11.5-14.5); White Blood Cell Count 11.7 10^3/uL (4.8-10.8)
[2025-01-06] MEDS: VANCOCIN 150 IV ×2 (05:17→17:19)
[2025-01-06] MEDS: LR 1000 IV (05:17)
[2025-01-06 05:20] LABS: Lactic Acid 1.3 mmol/L (0.7-2.0)
[2025-01-06 05:32] LABS: ALT (SGPT) 49 U/L (0-35); AST (SGOT) 50 U/L (14-36); Albumin 2.7 g/dl (3.5-5.0); Alkaline Phosphatase 40 U/L (38-126); Blood Urea Nitrogen 13 mg/dl (7-17); Calcium 7.6 mg/dl (8.4-10.2); Carbon Dioxide 25 mmol/L (22-30); Chloride 110 mmol/L (98-107); Estimated Creatinine Clearance 67 ml/min; Glucose 95 mg/dl (70-99); Magnesium 1.4 mg/dl (1.6-2.3); Phosphorus 3.1 mg/dl (2.5-4.5); Potassium 3.5 mmol/L (3.5-5.1); Sodium 137 mmol/L (135-145); Total Protein 4.6 g/dl (6.3-8.2); eGFR > 60.00
[2025-01-06 07:59] LABS: Glucose - Point of Care 114 mg/dl (70-99)
[2025-01-06] MEDS: NOVOLOG FLEXPEN-LOW RESISTANCE SC (08:14)
[2025-01-06] MEDS: LIDOCAINE 4% PATCH 2 PATCH TOPICAL (08:26)
[2025-01-06] MEDS: ROXICODONE 7.5 MG PO (08:26)
--- NOTE | 2025-01-06 08:26 | W.PN.HOSP.TC ---
Today's Communication/Plan
-
abx as per ID
orthopedic eval
PT/OT
Replete Mg
Assessment / Plan
Assessment / Plan
Physical Exam
General: No pallor, cyanosis, or jaundice.
HEENT: Throat clear. PERRLA Normocephalic atraumatic, moist mucus membrane
NECK: Supple. No JVD Carotid Bruits
RESPIRATORY: Lungs clear to auscultation. No crackles wheezes stridor
CVS: S1, S2 normal. RRR. No murmur, rub or gallop.
ABDOMEN: Soft, non-tender. No distension. BS+/normal.
EXTREMITIES: No peripheral cyanosis or edema. Swollen knees b/l with ballotable fluid
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
IMPRESSION:
69F HTn HLD DM h/o CVA TBI memory loss here for evaluation weakness AMS chronic diarrhea recently here for evaluation fever unknown origin treated for possible sepsis. Patient subsequently improved consistently afebrile, negative infection work up.
Vital signs stable, patient was in her usual state of health at discharge. At the time of discharge source of fever was thought to be due to possible acute viral syndrome (not COVID or Flu) vs possible drug reaction to Macrobid. Though drug
reaction to Macrobid seemed unlikely as patient had been on the medication for months, UTI prophylaxis, without issues. However following discharge, and after resuming home Macrobid, patient returns next day with confusion/lethargy and high fever.
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 Tachycardic with elevated white count, presentation also concerning possible sepsis. BP stable, lactic acidosis 3.4 since improved with 2L bolus to 2.1. Extensive imaging in
ED was largely neg for acute abn's, possible hepatitis was noted on CT abd/pelvis. Mild transaminitis noted in labs. Fever treated with IV Tylenol and Ibuprofen, patient's mental status improving as fever improves.
PLAN:
#Severe Fever possible sepsis (fever tachycardia leukocytosis) unclear etiology
#Acute Toxic Metabolic Encephalopathy 2/2 fever
#Possible drug fever d/t Macrobid
#Lactic Acidosis
#chronic diarrhea (appears to be resolved at this time)
IMU admit
ID eval appreciated cont empiric vanc zosyn
IV tylenol ibuprofen prn Fever- switched to oral with improvement in mental status and tolerating diet. Ibuprofen prn discontinued with consistent resolution fever
IVF support completed, Tolerating diet
compazine prn nausea
Follow blood cultures NGTD
Cdiff neg
no acute abn's noted CXR urinalysis CT head CT sinuses
macrobid discontinued indefinitely at this time
Fever since resolved at this time
#Mild transaminitis
#Possible hepatitis noted on CT abd/pelvis
monitor LFTs
DMII
- hold home metformin
- low dose sliding scale insulin
- update A1c 7.5
h/o CVA
h/o TBI
- continue aspirin statin
- continue home donepezil
RA/Psoriatic Arthritis on Ixekizumab
b/l knee pain swelling hx fall
-hold home prednisone at this time in lieu of severe infection concerns as above
-knee X-rays appreciated arthritis significantly progressed, no fractures/dislocation noted, Lt knee X-ray noted moderate joint effusion
-Though relatively low suspicion septic arthritis, Orthopedic consulted for arthrocentesis rule out source for infection/high fevers.
-lidocaine patches
-pain control
mild hypokalemia
Hypomagnesemia
-monitor and replete as necessary
Chronic Diarrhea
-Follow Stool studies
-outpatient GI follow up
-diarrhea appears to be resolved at this time
dvt ppx Lovenox
GI ppx Protonix
Full Code
Discussed with patient, patient's daughter Екатерина, and Keith
I spent a total of 50 minutes with the patient or on the floor. More than 50% of this time involved counseling and coordination of care.
Anticipated Discharge: 24 - 48 hours
Subjective/Interval History
-
Date of Service: January 06, 2025
No acute distress, significantly improved from night prior, AOx3 conversant coherent. Likely baseline memory issues as noted prior hospitalization. Reports b/l knee pain, improved with lidocaine patches
Objective Data
-
Labs:
Laboratory Results
01/06/25
04:36
WBC 11.7 H
Hgb 9.8 L
Hct 28.9 L
Plt Count 176
Sodium 137
Potassium 3.5
Chloride 110 H
Carbon Dioxide 25
BUN 13
Creatinine 0.8
Glucose 95
Calcium 7.6 L D
Total Bilirubin 1.0
AST 50 H
ALT 49 H
Alkaline Phosphatase 40
Vital Signs:
Vital Signs
Temp Pulse Resp BP Pulse Ox
98.3 F 81 22 93/68 95
01/06/25 07:00 01/06/25 06:00 01/06/25 06:00 01/06/25 06:00 01/05/25 23:08
I&O
01/05/25 01/06/25 01/07/25
06:59 06:59 06:59
Intake Total 1300 / 1300
Balance 1300 / 1300
[2025-01-06] MEDS: LEXAPRO 20 MG PO (08:27)
[2025-01-06] MEDS: NSS (PRESERVATIVE FREE) 10 ML IV (08:27)
[2025-01-06] MEDS: PROTONIX IV 40 MG IV (08:27)
[2025-01-06] MEDS: ASPIR LOW (ENTERIC COATED) 81 MG PO (08:27)
[2025-01-06] MEDS: NEURONTIN 400 MG PO ×2 (08:27→19:20)
[2025-01-06] MEDS: FLORASTOR 250 MG PO ×2 (08:29→19:20)
--- NOTE | 2025-01-06 09:20 | CM ---
Addendum entered by Roma Davidson RN 01/06/25 09:53:
Patient with Hx CVA, TBI, memory loss readmitted with Dx Severe Fever possible sepsis unclear etiology, Acute Toxic Metabolic Encephalopathy 2/2 fever. Febrile overnight. Receiving acetaminophen gtt. Per nurse; confused/forgetful. PT/OT Evals
pending.
Spoke with patient's daughter Екатерина;
the patient resides with her in a 1 story house, two steps to enter.
The patient has been assisted with ADLs and ambulation.
After she was discharged to home on 01/04 the caregiver from [facility] was with her and felt she needed to return to the hospital. Her mentation continued to be confused/forgetful, she was unable to talk or walk.
DME -[facility]
Current with VN
SNF - none
PCP Gabriel Mckeon
Pharmacy - [facility]
Daughter is requesting RW for home use---> message sent to Tammy BROWNING and Manasa SEQUEIRA.
Daughter hoping the patient can return home with [facility]
Plan probable d/c to home with [facility] & RW when medically ready.
Original Note:
Patient with Hx CVA, TBI, memory loss readmitted with Dx Severe Fever possible sepsis unclear etiology, Acute Toxic Metabolic Encephalopathy 2/2 fever. Febrile overnight. Receiving acetaminophen gtt. Per nurse; confused/forgetful. PT/OT Evals
pending.
Spoke with patient's daughter Екатерина;
the patient resides with her in a 1 story house, two steps to enter.
The patient has been assisted with ADLs and ambulation.
After she was discharged to home on 01/04 the caregiver from [facility] mentation continued to be confused/forgetful, she was unable to talk or walk.
DME -[facility]
Current with VN
SNF - none
PCP Gabriel Mckeon
Pharmacy - [facility]
Daughter is requesting RW for home use---> message sent to Tammy BROWNING and Manasa SEQUEIRA.
Daughter hoping the patient can return home with [facility]
Plan probable d/c to home with [facility] & RW when medically ready.
[2025-01-06 09:34] LABS: Glycohemoglobin (HgbA1c) 7.5 % (4.0-5.6)
--- NOTE | 2025-01-06 09:44 | PHA.VAN.FU ---
Vancomycin Assessment / Plan
- Assessment
Renal Function: Stable
WBC's are: Stable
In the past 24 hrs, patient has been: Febrile
Concomitant Antimicrobials: piperacillin/tazobactam
- Dosing Plan
Continue: Vanc 750mg Q12H
- Monitoring Plan
No level(s) ordered at this time: consider levels in next few days
- Follow Up
Pharmacy will continue to follow.
Vancomycin Follow UP
- -
Patient Age: 69
Patient Sex: Female
Vancomycin Day #: 2
Indication: Bacteremia
Requesting Provider: Dr. Wakefield
Pertinent Antimicrobial Allergies:
vancomycin - infusion reaction
nitrofurantoin - fever
Height / Weight:
Height 5 ft 8 in
Actual Weight 65.1 kg
Pertinent Past Medical History: DM 2
- Vital Signs / Lab Results
Temp Pulse Resp BP Pulse Ox
98.3 F 81 22 93/68 95
01/06/25 07:00 01/06/25 06:00 01/06/25 06:00 01/06/25 06:00 01/05/25 23:08
Lab Results - Hematology
01/05/25 01/06/25
11:56 04:36
WBC 12.1 H 11.7 H
Lab Results - Chemistry
01/05/25 01/06/25
11:56 04:36
BUN 13 13
Creatinine 0.7 0.8
Estimated Creat Clear 76 67
Albumin 4.5 2.7 L D
01/05/25 01/05/25 01/05/25
12:42 15:46 20:00
Lactic Acid 3.4 H 2.1 H Cancelled
01/06/25
04:36
Lactic Acid 1.3
Lab Results - Urine
01/05/25
12:42
Urine Nitrite (Reflex) Negative
Leukocyte Esterase Rfl Negative
Microbiology Results
01/05/25 12:42 Shiga Toxin Test - Final
Feces/Stool No E. coli Shiga Toxin 1 or 2 detected.
01/05/25 12:43 C. difficile GDH Antigen & Toxins - Final
Feces/Stool Negative for toxigenic C.difficile
01/05/25 11:56 Influenza Types A & B (JAMEL) - Final
Nasal Swab Negative for Influenza A & B, NAAT
Negative results must be combined with clinical observations
and patient history.
Nucleic Acid Amplification test (NAAT)performed on the
[employer] platform.
[2025-01-06] MEDS: MAGNESIUM SULFATE 100 IV (09:57)
--- NOTE | 2025-01-06 11:41 | PTCARENOTE ---
Assumed care of patient at beginning of this shift from previous RN. Patient Ox3: self, place and year; forgetful to month and frequently forgetful to situation of why she is here. Needs frequent reminding to situation. Worked with PT/OT, ambulated
in hallway; per therapist, patient with unsteady gait requiring RW. She stated last admission, last week, patient able to ambulate in valdes and do stairs. Currently OOB in chair with chair alarm in use; bed alarm also maintained for patient safety.
[2025-01-06 12:24] LABS: Erythrocyte Sed Rate 22 mm/hour (0-20)
[2025-01-06 12:41] LABS: Glucose - Point of Care 204 mg/dl (70-99)
[2025-01-06 13:27] LABS: Hepatitis B Surface Antigen Negative (Negative)
[2025-01-06 13:45] LABS: Hepatitis A Antibody, Total Negative (Negative); Hepatitis B Core Ab, Total Negative (Negative); Hepatitis B Surface Antibody Negative; Hepatitis C Antibody Negative (Negative)
[2025-01-06] MEDS: NOVOLOG FLEXPEN-LOW RESISTANCE 1 UNITS SC ×2 (14:00→17:29)
[2025-01-06 14:10] LABS: Glucose - Point of Care 170 mg/dl (70-99)
--- NOTE | 2025-01-06 15:09 | PTCARENOTE ---
Accu check 204 at 12:38. Patient then decided to eat lunch later. Repeat accu check done when tray arrived at 13:59 with result 170; 1 unit insulin given as per sliding scale order.
--- NOTE | 2025-01-06 16:40 | CON.ORTHO ---
Consultation
-
Date/Time Consultation Requested: 01/06/2025 1100
Date/Time Consultation Performed: 01/06/2025 1700
Requesting Provider: Jorge Reyes
Performing Provider: Jorge Alberto Chacon
Reason for Consultation: Knee swelling
Consultation - Orthopedics
History
Orthopedic Surgery Note
CC: Knee swelling, fever
HPI: 69-year-old female with history of cognative impairement with a history of psoriatic arthritis and rheumatoid arthritis was admitted for fever workup. The patient reports that she fell out of bed and landed on her knees about 3 or 4 days ago.
She denies chronic knee pain. She reports that after the fall she had painful swelling in both knees. She is reported to have increased difficulty with gait with physical therapy. She reports subjective fever on admission. No fever today.
PMH/PSH: asthma, h/o ca breast, CVA, HTN, DM, RA, psoriatic arthritis
Medications: reviewed
Family History: Family history was reviewed. Noncontributory
Social history: former smoker, h/o etoh
Exam
General appearance: Pleasant. No acute distress.
Head: Normocephalic/atraumatic
Nose: No lesions or discharge.
Skin: No obvious rashes or open wounds
Lungs: No audible wheezing, no cough or sputum production
Musculoskeletal:
LLE:
skin intact without open wounds
large effusion
valgus alignment
pain free active knee flexion to 100; no micromotion pain
able to mainatain straight leg raise
no ttp about medial, lateral joint line
no ttp suprapatellar
fires ehl/fhl/ta/gs
sensation intact to light touch distally s/s/sp/dp/t
Toes wwp
RLE:
skin intact without open wounds
large effusion
valgus alignment
pain free active knee flexion to 120; no micromotion pain
able to mainatain straight leg raise
no ttp about medial, lateral joint line
no ttp suprapatellar
fires ehl/fhl/ta/gs
sensation intact to light touch distally s/s/sp/dp/t
Toes wwp
Imaging: Right left knee x-rays performed at [facility] 12/07/2024 reviewed by me. These show advanced valgus osteoarthritis. No signs of displaced fracture. There is osteophyte formation.
Procedure: With patient consent and under sterile conditions, also with consent to the patient's daughter, the right and left knees were both aspirated. 10 cc of yellow translucent low viscosity fluid was removed. The fluid was transferred to
sterile chest tubes and sent to the lab.
Assessment and plan:
69-year-old female admitted for fever workup. On exam, she has no erythema about her knees and no micromotion pain. She has advanced arthritis and likely has effusions from her degenerative joint disease. We discussed low likelihood for septic
arthritis. The right and left knees were aspirated and the fluid was sent for testing to more definitively assess for infection. We discussed pain control techniques. All questions were answered.
> 75 minutes was spent reviewing the clinical information, evaluating the patient, and formulating clinical plan.
Allergies / Home Medications
Allergy/AdvReac Type Severity Reaction Status Date / Time
nitrofurantoin AdvReac Severe Fever Unverified 01/05/25 16:49
vancomycin AdvReac vancomycin Verified 01/05/25 17:36
infusion
reaction
01/05/25
�Medication �Instructions �Recorded
amlodipine 5 mg tablet 5 mg PO DAILY Blood Pressure 09/11/24
aspirin 81 mg tablet,delayed 81 mg PO DAILY Blood Clot 09/11/24
release Prevention/Tx
atorvastatin 80 mg tablet 80 mg PO QPM High Cholesterol 09/11/24
escitalopram oxalate 20 mg tablet 20 mg PO DAILY Mental 09/11/24
Health/Anxiety
gabapentin 400 mg capsule 400 mg PO BID NEUROPATHIC PAIN 09/11/24
metformin 500 mg tablet 1,000 mg PO DAILY Diabetes 09/11/24
metformin 500 mg tablet 500 mg PO QPM Diabetes 09/11/24
Boswellia samanta extract 307 mg 250 mg PO DAILY Supplement 12/31/24
tablet
calcium carbonate (Calcium 600) 600 mg PO DAILY Supplement 12/31/24
cholecalciferol (vitamin D3) 25 25 mcg PO DAILY Supplement 12/31/24
mcg (1,000 unit) tablet (Vitamin
D3)
cyanocobalamin (vitamin B-12) 1,000 mcg PO DAILY Supplement 12/31/24
1,000 mcg tablet
donepezil 10 mg tablet 10 mg PO HS Mental Health/Anxiety 12/31/24
ferrous sulfate 325 mg (65 mg 325 mg PO QPM Supplement 12/31/24
iron) tablet
hydrocodone 10 mg-acetaminophen 1 tab PO Q6HPRN PRN SEVERE PAINS 12/31/24
325 mg tablet
memantine 5 mg tablet 10 mg PO DIRECTED Mental 12/31/24
Health/Anxiety
nitrofurantoin 100 mg PO QPM CORRECTION PROPHYLAXIS 12/31/24
monohydrate/macrocrystals 100 mg
capsule (Macrobid)
prednisone 10 mg tablet 10 mg PO DAILY INFLAMMATION 12/31/24
ixekizumab 80 mg/mL subcutaneous 80 mg SC MONTHLY Autoimmune 01/05/25
syringe (Taltz Syringe) Disorder
Vital Signs / Lab Results
Temp Pulse Resp BP Pulse Ox
98.2 F 66 15 108/66 97
01/06/25 15:00 01/06/25 14:00 01/06/25 14:00 01/06/25 14:00 01/06/25 12:00
01/06/25 04:36
01/06/25 04:36
--- NOTE | 2025-01-06 16:46 | PTCARENOTE ---
Dr Chacon, ortho, in to see patient and aspirated b/l knees; he walked cultures to lab.
--- NOTE | 2025-01-06 16:52 | W.PN.ID1 ---
Date of Service
Date of Service: January 06, 2025
Today's Communication
- continue vancomycin and zosyn
Assessment / Plan
Relapse of fevers
Hepatitis
TME h/o TBI
- blood cultures x3 prior to starting antibiotics - no growth to date
- await TTE
- CT ab/pelvis notable for possible hepatitis; mildly increased LFTs which is new from last visit and possibly an adr - improved today
- hep a/b/c negative
- Stop nitrofurantoin
- continue vancomycin and zosyn
- avoid OTC supplements - was apparently on boswellia extract outpatient
- will follow up orthopedics consult
Chronic Diarrhea
RA/Psoriatic arthritis on Ixekizumab
Immunosuppression
- CMV viral load on serum pending; would require tissue biopsy for confirmation if diarrhea persists
- would typically be screened for TB prior to initiation
- stool culture in progress, C difficile neagative
- consider GI input to possibly move up colonoscopy if ongoing diarrhea (perhaps resolving)
Chief Complaint
-: Fever
Subjective / Review of Systems
fevers may be resolving
bp stable
reports ongoing bilateral knee pain
tolerating current therapies
also complaining of L shoulder pain
no further reported diarrhea
Vital Signs / Physical Exam
Vital Signs
Vital Signs
Temp Pulse Resp BP Pulse Ox
98.2 F 66 15 108/66 97
01/06/25 15:00 01/06/25 14:00 01/06/25 14:00 01/06/25 14:00 01/06/25 12:00
Physical Exam
Constitutional: No Acute Distress and Chronically Ill
Cardiovascular: Regular Rate and S1/S2; Negative Murmur or Rub
Pulmonary: Clear and Symmetric; Negative Wheezes or Rales
Gastrointestinal: Soft, Non Tender, Non Distended and Normal Bowel Sounds
Skin: Warm and Dry; Negative Rash or Jaundice
Objective Data
Lab Data
Lab Results
01/06/25 04:36
01/06/25 04:36
ESR 22 mm/hour (0-20) H 01/06/25 04:36
Estimated Creat Clear 67 ml/min 01/06/25 04:36
Lactic Acid 1.3 mmol/L (0.7-2.0) 01/06/25 04:36
Total Bilirubin 1.0 mg/dl (0.2-1.3) 01/06/25 04:36
AST 50 U/L (14-36) H 01/06/25 04:36
ALT 49 U/L (0-35) H 01/06/25 04:36
Alkaline Phosphatase 40 U/L (38-126) 01/06/25 04:36
C-Reactive Protein 76.00 mg/L (0.0-10.00) H 01/06/25 04:36
Most recent labs reviewed.
Micro Results:
01/05/25 16:30 Blood Culture - Preliminary
Blood/Venous No Growth in 24 hours- Final report to follow
01/06/25 16:05 Body Fluid Culture - Pending
Joint Fluid Gram Stain - Pending
01/06/25 16:07 Body Fluid Culture - Pending
Joint Fluid Gram Stain - Pending
01/05/25 15:45 Blood Culture - Preliminary
Blood/Venous No Growth in 24 hours- Final report to follow
01/05/25 12:42 Blood Culture - Preliminary
Blood/Venous No Growth in 24 hours- Final report to follow
01/05/25 12:42 Blood Culture - Preliminary
Blood/Venous No Growth in 24 hours- Final report to follow
01/05/25 12:42 Salmonella/Shigella Culture - Preliminary
Feces/Stool Culture in Progress
Campylobacter Culture - Preliminary
Culture in Progress
Shiga Toxin Test - Final
No E. coli Shiga Toxin 1 or 2 detected.
01/05/25 12:43 C. difficile GDH Antigen & Toxins - Final
Feces/Stool Negative for toxigenic C.difficile
01/05/25 11:56 Influenza Types A & B (JAMEL) - Final
Nasal Swab Negative for Influenza A & B, NAAT
Negative results must be combined with clinical observations
and patient history.
Nucleic Acid Amplification test (NAAT)performed on the
[employer] platform.
[2025-01-06] MEDS: LIPITOR 80 MG PO (17:19)
[2025-01-06] MEDS: LOVENOX 40 MG SC (17:19)
[2025-01-06 17:26] LABS: Body Fluid Mononuclear 56.1 %; Body Fluid Polymorphonuclear 43.9 %; Body Fluid WBC 6428 /CUMM
[2025-01-06 17:28] LABS: Body Fluid Mononuclear 51 %; Body Fluid Polymorphonuclear 49 %; Body Fluid WBC 6109 /CUMM
[2025-01-06 17:32] LABS: Body Fluid Second Tech CMC
[2025-01-06 17:32] LABS: Body Fluid Second Tech CMC
[2025-01-06 17:39] LABS: Glucose - Point of Care 153 mg/dl (70-99)
--- NOTE | 2025-01-06 18:55 | PTCARENOTE ---
This RN received TT from Sun GANDHI that advanced directive left in room on table near the window for daughter Екатерина. She stated that daughter wanted it there as she doesn't want the patient to try to fill it out on her own. This nurse verified that
paper was on table near the window. Sun stated daughter would be here this afternoon. Daughter has not come as of yet. Patient's one son was here but unsure if patient's daughter would be here. Sun further stated in TT that they need to be updated
if patient/family puts anything on there affecting care decisions and copy placed in chart. This information was reported off to oncoming shift.
[2025-01-06] MEDS: ARICEPT 10 MG PO (19:20)
[2025-01-06] MEDS: ROXICODONE 5 MG PO (19:22)
--- NOTE | 2025-01-06 21:12 | PTCARENOTE ---
Pt able to answer orientation questions correctly, however extremely forgetful. Set off the bed alarm multiple times. Assisted to BSC with assistx1. C/o pain in B/L knees, 5mg roxicodone given. Resting comfortably in bed at this time. VSS. Care
ongoing.
[2025-01-06 22:20] LABS: Glucose - Point of Care 109 mg/dl (70-99)
[2025-01-07] VITALS (8 sets, daily range): BP systolic 108–137; BP diastolic 68–76
[2025-01-07] MEDS: ZOSYN 100 IV ×2 (02:59→08:56)
[2025-01-07] MEDS: VANCOCIN 150 IV ×2 (05:20→19:45)
[2025-01-07 05:37] LABS: Hematocrit 29.9 % (37.0-47.0); Hemoglobin 9.8 g/dL (12.0-16.0); Mean Corp Hgb Conc. 32.8 g/dL (33.0-37.0); Mean Corpuscular Hgb 29.5 pg (27.0-31.0); Mean Corpuscular Volume 90.1 fL (81.0-99.0); Mean Platelet Volume 9.3 fL (7.4-10.4); Platelet Count 206 10^3/uL (130-400); Red Blood Cell Count 3.32 10^6/uL (4.20-5.40)
[2025-01-07 06:03] LABS: ALT (SGPT) 47 U/L (0-35); AST (SGOT) 34 U/L (14-36); Albumin 3.1 g/dl (3.5-5.0); Alkaline Phosphatase 39 U/L (38-126); Blood Urea Nitrogen 11 mg/dl (7-17); Calcium 8.3 mg/dl (8.4-10.2); Carbon Dioxide 31 mmol/L (22-30); Chloride 108 mmol/L (98-107); Estimated Creatinine Clearance 60 ml/min; Glucose 129 mg/dl (70-99); Magnesium 2.2 mg/dl (1.6-2.3); Potassium 3.4 mmol/L (3.5-5.1); Sodium 142 mmol/L (135-145); Total Bilirubin 0.7 mg/dl (0.2-1.3); Total Protein 5.3 g/dl (6.3-8.2); eGFR > 60.00
--- NOTE | 2025-01-07 08:21 | W.PN.UPDATE ---
Update Note
Progress Note Update
Bilateral knee aspirations with cell count approximately 6000 and positive for CPPD crystals. Will follow peripherally at this timeframe for culture results however no orthopedic intervention indicated at this timeframe. Recommend outpatient
follow-up with primary care or rheumatology regarding her CPPD or orthopedic surgery for arthrosis
[2025-01-07 08:39] LABS: Glucose - Point of Care 144 mg/dl (70-99)
--- NOTE | 2025-01-07 08:51 | W.PN.HOSP.TC ---
Today's Communication/Plan
-
Medically stable for downgrade to tele
cont abx as per ID
PT/OT
follow cultures
Assessment / Plan
Assessment / Plan
Physical Exam
General: No pallor, cyanosis, or jaundice.
HEENT: Throat clear. PERRLA Normocephalic atraumatic, moist mucus membrane
NECK: Supple. No JVD Carotid Bruits
RESPIRATORY: Lungs clear to auscultation. No crackles wheezes stridor
CVS: S1, S2 normal. RRR. No murmur, rub or gallop.
ABDOMEN: Soft, non-tender. No distension. BS+/normal.
EXTREMITIES: No peripheral cyanosis or edema
BREWERY WORKER: AOx3 conversant coherent memory issues noted likely baseline
IMPRESSION:
69F HTn HLD DM h/o CVA TBI memory loss here for evaluation weakness AMS chronic diarrhea recently here for evaluation fever unknown origin treated for possible sepsis. Patient subsequently improved consistently afebrile, negative infection work up.
Vital signs stable, patient was in her usual state of health at discharge. At the time of discharge source of fever was thought to be due to possible acute viral syndrome (not COVID or Flu) vs possible drug reaction to Macrobid. Though drug
reaction to Macrobid seemed unlikely as patient had been on the medication for months, UTI prophylaxis, without issues. However following discharge, and after resuming home Macrobid, patient returns next day with confusion/lethargy and high fever.
Daughter noted patient had an episode of vomiting prior to EMS picker and sorter load and unload. Tachycardic with elevated white count, presentation also concerning possible sepsis. BP stable, lactic acidosis 3.4 since improved with 2L bolus to 2.1. Extensive imaging in
ED was largely neg for acute abn's, possible hepatitis was noted on CT abd/pelvis. Mild transaminitis noted in labs. Fever treated with IV Tylenol and Ibuprofen, patient's mental status improving as fever improves.
PLAN:
#Severe Fever possible sepsis (fever tachycardia leukocytosis) unclear etiology
#Acute Toxic Metabolic Encephalopathy 2/2 fever
#Possible drug fever d/t Macrobid
#Lactic Acidosis
#chronic diarrhea (appears to be resolved at this time)
IMU admit
ID eval appreciated cont empiric vanc, zosyn discontinued
IV tylenol ibuprofen prn Fever- switched to oral with improvement in mental status and tolerating diet. Ibuprofen prn discontinued with consistent resolution fever
IVF support completed, Tolerating diet
compazine prn nausea
Follow blood cultures NGTD
Cdiff neg
no acute abn's noted CXR urinalysis CT head CT sinuses
macrobid discontinued indefinitely at this time
Fever since resolved at this time
ECHO appreciated normal systolic function no evidence vegetation or significant change from prior ECHO 06/23/24
#Reports heaviness on deep breath but otherwise stable respiratory status on room air, denies SOB at rest
CXR no acute abn's
Incentive Spirometer
outpt follow up with pulmonology for PFTs recommended
#Mild transaminitis
#Possible hepatitis noted on CT abd/pelvis
monitor LFTs
DMII
- home metformin held on admission, eventual restart
- low dose sliding scale insulin
- update A1c 7.5
h/o CVA
h/o TBI
- continue aspirin statin
- continue home donepezil
RA/Psoriatic Arthritis on Ixekizumab
Pseudogout
b/l knee pain swelling hx fall
-home prednisone resumed
-knee X-rays appreciated arthritis significantly progressed, no fractures/dislocation noted, Lt knee X-ray noted moderate joint effusion
-Orthopedic appreciated b/l arthrocentesis knees performed, fluid studies note CPPD crystals likely pseudogout, cultures ngtd
-lidocaine patches
-pain control
-follow up with her outpt validation specialist advised
mild hypokalemia
Hypomagnesemia
-monitor and replete as necessary
Chronic Diarrhea
-Follow Stool studies
-outpatient GI follow up
-diarrhea appears to be resolved at this time
dvt ppx Lovenox
GI ppx Protonix
Full Code
Medically stable for downgrade to Tele
Discussed with patient and patient's Keith
I spent a total of 45 minutes with the patient or on the floor. More than 50% of this time involved counseling and coordination of care.
Anticipated Discharge: 24 - 48 hours
Subjective/Interval History
-
Date of Service: January 07, 2025
Mental Status significantly improved. Overall reports feeling well. Diarrhea appears resolved at this time. Denies new acute issues.
Objective Data
-
Labs:
Laboratory Results
01/07/25
05:21
WBC 6.0
Hgb 9.8 L
Hct 29.9 L
Plt Count 206
Sodium 142
Potassium 3.4 L
Chloride 108 H
Carbon Dioxide 31 H
BUN 11
Creatinine 0.9
Glucose 129 H
Calcium 8.3 L
Total Bilirubin 0.7
AST 34
ALT 47 H
Alkaline Phosphatase 39
Vital Signs:
Vital Signs
Temp Pulse Resp BP Pulse Ox
99.0 F 56 20 136/70 96
01/07/25 08:00 01/07/25 06:00 01/07/25 06:00 01/07/25 06:00 01/07/25 04:00
I&O
01/06/25 01/07/25 01/08/25
06:59 06:59 06:59
Intake Total 1300 / 1300 350 / 350
Balance 1300 / 1300 350 / 350
[2025-01-07] MEDS: NOVOLOG FLEXPEN-LOW RESISTANCE SC (08:54)
[2025-01-07] MEDS: LIDOCAINE 4% PATCH 2 PATCH TOPICAL (08:55)
[2025-01-07] MEDS: FLORASTOR 250 MG PO ×2 (08:55→19:52)
[2025-01-07] MEDS: LEXAPRO 20 MG PO (08:55)
[2025-01-07] MEDS: NEURONTIN 400 MG PO ×2 (08:55→19:52)
[2025-01-07] MEDS: ASPIR LOW (ENTERIC COATED) 81 MG PO (08:55)
[2025-01-07] MEDS: PROTONIX IV 40 MG IV (08:56)
[2025-01-07] MEDS: NSS (PRESERVATIVE FREE) 10 ML IV (08:56)
[2025-01-07] MEDS: ROXICODONE 5 MG PO ×2 (09:21→18:59)
--- NOTE | 2025-01-07 09:31 | W.PN.ID1 ---
Date of Service
Date of Service: January 07, 2025
Today's Communication
- continue vancomycin while following blood cultures another day
- await TTE
- stop zosyn
- Stop nitrofurantoin - would not restart on dc given hepatitis
- would avoid OTC supplements on discharge given hepatitis - was apparently on boswellia extract outpatient
CPPD disease of the bilateral knees
- possible cause of fevers
- management per orthopedics/IM service
- no objection to antiinflammatories including steroids from ID perspective; currently on oxycodone
Assessment / Plan
Relapse of fevers - resolved
Hepatitis - mild, resolving
TME h/o TBI
- blood cultures x3 prior to starting antibiotics on 01/05 - no growth to date; she did have 1 of 2 blood cultures with CONS 12/30 which was assessed as probable contaminant
- await TTE - reordered
- CT ab/pelvis notable for possible hepatitis; mildly increased LFTs which is new from last visit and possibly an adr - improved today
- hep a/b/c negative
- continue vancomycin while following blood cultures another day
- stop zosyn
- Stop nitrofurantoin - would not restart on dc given hepatitis
- would avoid OTC supplements on discharge given hepatitis - was apparently on boswellia extract outpatient
CPPD disease of the bilateral knees
- possible cause of fevers
- management per orthopedics/IM service
- no objection to antiinflammatories including steroids from ID perspective; currently on oxycodone
Chronic Diarrhea - resolved
RA/Psoriatic arthritis on Ixekizumab
Immunosuppression
- CMV viral load on serum pending; would require tissue biopsy via colonoscopy for confirmation if diarrhea persists, happily diarrhea seems to be resolving
- would typically be screened for TB prior to initiation of Ixekizumab
- stool culture in progress, C difficile negative
- scheduled for outpatient colonoscopy
Chief Complaint
-: Fever
Subjective / Review of Systems
fevers resolved x24 hours
bp stable
s/p bilateral arthrocenteses
CPPD crystals seen in both knees
Vital Signs / Physical Exam
Vital Signs
Vital Signs
Temp Pulse Resp BP Pulse Ox
99.0 F 56 20 136/70 96
01/07/25 08:00 01/07/25 06:00 01/07/25 06:00 01/07/25 06:00 01/07/25 04:00
Physical Exam
Constitutional: No Acute Distress
Cardiovascular: Regular Rate and S1/S2; Negative Murmur or Rub
Pulmonary: Clear and Symmetric; Negative Wheezes or Rales
Gastrointestinal: Soft, Non Tender, Non Distended and Normal Bowel Sounds
Musculoskeletal: Other (bilateral knees mildly warm, pink; remain tender and mildly swollen)
Skin: Warm and Dry; Negative Rash or Jaundice
Neurological: Awake
Objective Data
Lab Data
Lab Results
01/07/25 05:21
01/07/25 05:21
ESR 22 mm/hour (0-20) H 01/06/25 04:36
Estimated Creat Clear 60 ml/min 01/07/25 05:21
Lactic Acid 1.3 mmol/L (0.7-2.0) 01/06/25 04:36
Total Bilirubin 0.7 mg/dl (0.2-1.3) 01/07/25 05:21
AST 34 U/L (14-36) 01/07/25 05:21
ALT 47 U/L (0-35) H 01/07/25 05:21
Alkaline Phosphatase 39 U/L (38-126) 01/07/25 05:21
C-Reactive Protein 76.00 mg/L (0.0-10.00) H 01/06/25 04:36
Most recent labs reviewed.
Micro Results:
01/06/25 16:05 Body Fluid Culture - Pending
Joint Fluid Gram Stain - Preliminary
01/06/25 16:07 Body Fluid Culture - Pending
Joint Fluid Gram Stain - Preliminary
01/05/25 16:30 Blood Culture - Preliminary
Blood/Venous No Growth in 24 hours- Final report to follow
01/05/25 15:45 Blood Culture - Preliminary
Blood/Venous No Growth in 24 hours- Final report to follow
01/05/25 12:42 Blood Culture - Preliminary
Blood/Venous No Growth in 24 hours- Final report to follow
01/05/25 12:42 Blood Culture - Preliminary
Blood/Venous No Growth in 24 hours- Final report to follow
01/05/25 12:42 Salmonella/Shigella Culture - Preliminary
Feces/Stool Culture in Progress
Campylobacter Culture - Preliminary
Culture in Progress
Shiga Toxin Test - Final
No E. coli Shiga Toxin 1 or 2 detected.
01/05/25 12:43 C. difficile GDH Antigen & Toxins - Final
Feces/Stool Negative for toxigenic C.difficile
01/05/25 11:56 Influenza Types A & B (JAMEL) - Final
Nasal Swab Negative for Influenza A & B, NAAT
Negative results must be combined with clinical observations
and patient history.
Nucleic Acid Amplification test (NAAT)performed on the
[employer] platform.
[2025-01-07] MEDS: DELTASONE 10 MG PO (10:51)
[2025-01-07] MEDS: KCL 40 MEQ PO (10:51)
[2025-01-07 11:16] LABS: Iron 39 ug/dl (37-170)
[2025-01-07 11:25] LABS: Percent Saturation 15 % (20-50); Total Iron Binding Capacity 260 ug/dl (265-497)
[2025-01-07 12:29] LABS: Glucose - Point of Care 160 mg/dl (70-99)
[2025-01-07] MEDS: TYLENOL 1000 MG PO (13:08)
[2025-01-07] MEDS: NOVOLOG FLEXPEN-LOW RESISTANCE 1 UNITS SC (13:09)
[2025-01-07 13:27] LABS: Folate > 20.0 ng/ml (2.76-20); Vitamin B12 904 pg/ml (239-931)
--- NOTE | 2025-01-07 16:07 | PHA.VAN.FU ---
Vancomycin Assessment / Plan
- Assessment
Renal Function: Stable
WBC's are: WNL
In the past 24 hrs, patient has been: Afebrile
- Dosing Plan
Continue: Vanc 750mg Q12H
- Monitoring Plan
No level(s) ordered at this time: consider levels in next few days
- Follow Up
Pharmacy will continue to follow.
Vancomycin Follow UP
- -
Patient Age: 69
Patient Sex: Female
Vancomycin Day #: 3
Indication: Bacteremia
Requesting Provider: Dr. Wakefield
Pertinent Antimicrobial Allergies:
vancomycin - infusion reaction
nitrofurantoin - fever
Height / Weight:
Height 5 ft 8 in
Actual Weight 65.1 kg
Pertinent Past Medical History: DM 2
- Vital Signs / Lab Results
Temp Pulse Resp BP Pulse Ox
98.0 F 59 18 120/76 96
01/07/25 15:00 01/07/25 15:00 01/07/25 15:00 01/07/25 15:00 01/07/25 15:00
Lab Results - Hematology
01/05/25 01/06/25 01/07/25
11:56 04:36 05:21
WBC 12.1 H 11.7 H 6.0
Lab Results - Chemistry
01/05/25 01/06/25 01/07/25
11:56 04:36 05:21
BUN 13 13 11
Creatinine 0.7 0.8 0.9
Estimated Creat Clear 76 67 60
Albumin 4.5 2.7 L D 3.1 L
01/05/25 01/05/25 01/05/25
12:42 15:46 20:00
Lactic Acid 3.4 H 2.1 H Cancelled
01/06/25
04:36
Lactic Acid 1.3
Microbiology Results
01/05/25 15:45 Blood Culture - Preliminary
Blood/Venous No Growth in 48 hours- Final report to follow
01/05/25 12:42 Blood Culture - Preliminary
Blood/Venous No Growth in 48 hours- Final report to follow
01/05/25 12:42 Blood Culture - Preliminary
Blood/Venous No Growth in 48 hours- Final report to follow
01/05/25 12:42 Salmonella/Shigella Culture - Final
Feces/Stool No Salmonella, Shigella, Aeromonas or Plesiomonas species
isolated.
Campylobacter Culture - Final
No Campylobacter species isolated.
Shiga Toxin Test - Final
No E. coli Shiga Toxin 1 or 2 detected.
01/06/25 16:05 Body Fluid Culture - Preliminary
Joint Fluid No Growth After 18-24 Hours
Gram Stain - Preliminary
01/06/25 16:07 Body Fluid Culture - Preliminary
Joint Fluid No Growth After 18-24 Hours
Gram Stain - Preliminary
01/05/25 16:30 Blood Culture - Preliminary
Blood/Venous No Growth in 24 hours- Final report to follow
01/05/25 12:43 C. difficile GDH Antigen & Toxins - Final
Feces/Stool Negative for toxigenic C.difficile
01/05/25 11:56 Influenza Types A & B (JAMEL) - Final
Nasal Swab Negative for Influenza A & B, NAAT
Negative results must be combined with clinical observations
and patient history.
Nucleic Acid Amplification test (NAAT)performed on the
[employer] platform.
--- NOTE | 2025-01-07 16:32 | PN.CDI ---
CDI
- -
CDI:
Physician Documentation Request
Admit Date: 01/05/25 16:00
Dear Doctor Amy,
Hospitalist progress note states 'Severe Fever possible sepsis (fever tachycardia leukocytosis).... Acute Toxic Metabolic Encephalopathy 2/2 fever'
01/05 lactic acid 3.4
Please clarify which of the following most accurately describes the status of the patient's infection:
Severe sepsis
- Sepsis with associated acute organ dysfunction
Sepsis only
Other
Use of terms such as suspected, likely, concern for, or probable (associated with a specific diagnosis that is being evaluated, monitored, or treated as if it exists) are acceptable and can be coded in the inpatient setting, when documented at the
time of discharge.
Thank you,
Yareli Vidal RN, BSN
CDI Specialist
tiger text
Please use your independent medical judgment in providing your response.
[2025-01-07 16:37] LABS: Glucose - Point of Care 247 mg/dl (70-99)
[2025-01-07] MEDS: NOVOLOG FLEXPEN-LOW RESISTANCE 2 UNITS SC (18:23)
[2025-01-07] MEDS: LIPITOR 80 MG PO (18:39)
[2025-01-07] MEDS: LOVENOX 40 MG SC (18:40)
[2025-01-07] MEDS: ARICEPT 10 MG PO (21:14)
[2025-01-07 21:18] LABS: Glucose - Point of Care 358 mg/dl (70-99)
[2025-01-08 03:19] VITALS: BP 130/78
[2025-01-08] MEDS: VANCOCIN 150 IV (05:23)
[2025-01-08] MEDS: ROXICODONE 5 MG PO ×3 (05:25→20:06)
[2025-01-08 05:33] LABS: CMV Qnt NAAT Plasma Log IU/mL Not Detected log IU/mL; CMV Quant NAAT Plasma Interp Not Detected (Not Detected); CMV Quant by NAAT Plasma IU/mL Not Detected
[2025-01-08 07:00] VITALS: BP 121/72
[2025-01-08 07:58] LABS: Glucose - Point of Care 175 mg/dl (70-99)
[2025-01-08] MEDS: NOVOLOG FLEXPEN-LOW RESISTANCE 1 UNITS SC (08:23)
[2025-01-08] MEDS: LEXAPRO 20 MG PO (08:23)
[2025-01-08] MEDS: ASPIR LOW (ENTERIC COATED) 81 MG PO (08:23)
[2025-01-08] MEDS: FLORASTOR 250 MG PO (08:24)
[2025-01-08] MEDS: GLUCOPHAGE 1000 MG PO (08:24)
[2025-01-08] MEDS: NEURONTIN 400 MG PO ×2 (08:24→19:57)
[2025-01-08] MEDS: DELTASONE 10 MG PO (08:25)
[2025-01-08] MEDS: LIDOCAINE 4% PATCH 2 PATCH TOPICAL (08:25)
[2025-01-08] MEDS: NSS (PRESERVATIVE FREE) 10 ML IV (08:26)
[2025-01-08] MEDS: PROTONIX IV 40 MG IV (08:26)
--- NOTE | 2025-01-08 09:02 | PHA.VAN.FU ---
Vancomycin Assessment / Plan
- Assessment
Renal Function: Stable
WBC's are: Trending Down
In the past 24 hrs, patient has been: Afebrile
- Dosing Plan
Continue: 750MG Q12H
- Monitoring Plan
Peak Level: 01/08 @2200
Trough Level: 01/09 @0530
- Follow Up
Pharmacy will continue to follow.
Vancomycin Follow UP
- -
Patient Age: 69
Patient Sex: Female
Vancomycin Day #: 4
Indication: Bacteremia
Requesting Provider: Dr. Wakefield
Pertinent Antimicrobial Allergies:
vancomycin - infusion reaction
nitrofurantoin - fever
Height / Weight:
Height 5 ft 8 in
Actual Weight 65.1 kg
Pertinent Past Medical History: DM 2
- Vital Signs / Lab Results
Temp Pulse Resp BP Pulse Ox
98.2 F 57 18 121/72 94
01/08/25 07:00 01/08/25 07:00 01/08/25 07:00 01/08/25 07:00 01/08/25 07:00
Lab Results - Hematology
01/05/25 01/06/25 01/07/25
11:56 04:36 05:21
WBC 12.1 H 11.7 H 6.0
Lab Results - Chemistry
01/05/25 01/06/25 01/07/25
11:56 04:36 05:21
BUN 13 13 11
Creatinine 0.7 0.8 0.9
Estimated Creat Clear 76 67 60
Albumin 4.5 2.7 L D 3.1 L
01/05/25 01/05/25 01/05/25
12:42 15:46 20:00
Lactic Acid 3.4 H 2.1 H Cancelled
01/06/25
04:36
Lactic Acid 1.3
Microbiology Results
01/05/25 16:30 Blood Culture - Preliminary
Blood/Venous No Growth in 48 hours- Final report to follow
01/05/25 15:45 Blood Culture - Preliminary
Blood/Venous No Growth in 48 hours- Final report to follow
01/05/25 12:42 Blood Culture - Preliminary
Blood/Venous No Growth in 48 hours- Final report to follow
01/05/25 12:42 Blood Culture - Preliminary
Blood/Venous No Growth in 48 hours- Final report to follow
01/05/25 12:42 Salmonella/Shigella Culture - Final
Feces/Stool No Salmonella, Shigella, Aeromonas or Plesiomonas species
isolated.
Campylobacter Culture - Final
No Campylobacter species isolated.
Shiga Toxin Test - Final
No E. coli Shiga Toxin 1 or 2 detected.
01/06/25 16:05 Body Fluid Culture - Preliminary
Joint Fluid No Growth After 18-24 Hours
Gram Stain - Preliminary
01/06/25 16:07 Body Fluid Culture - Preliminary
Joint Fluid No Growth After 18-24 Hours
Gram Stain - Preliminary
[2025-01-08 09:43] LABS: Hematocrit 28.4 % (37.0-47.0); Hemoglobin 9.3 g/dL (12.0-16.0); Mean Corp Hgb Conc. 32.7 g/dL (33.0-37.0); Mean Corpuscular Hgb 29.8 pg (27.0-31.0); Mean Platelet Volume 9.9 fL (7.4-10.4); Platelet Count 269 10^3/uL (130-400); Red Blood Cell Count 3.12 10^6/uL (4.20-5.40); White Blood Cell Count 6.2 10^3/uL (4.8-10.8)
[2025-01-08 10:30] LABS: ALT (SGPT) 35 U/L (0-35); AST (SGOT) 19 U/L (14-36); Albumin 3.1 g/dl (3.5-5.0); Alkaline Phosphatase 40 U/L (38-126); Blood Urea Nitrogen 10 mg/dl (7-17); Calcium 8.7 mg/dl (8.4-10.2); Carbon Dioxide 31 mmol/L (22-30); Chloride 106 mmol/L (98-107); Estimated Creatinine Clearance 77 ml/min; Glucose 150 mg/dl (70-99); Magnesium 1.8 mg/dl (1.6-2.3); Phosphorus 3.3 mg/dl (2.5-4.5); Potassium 3.8 mmol/L (3.5-5.1); Sodium 140 mmol/L (135-145); Total Bilirubin 0.4 mg/dl (0.2-1.3); Total Protein 5.3 g/dl (6.3-8.2); eGFR > 60.00
--- NOTE | 2025-01-08 10:41 | W.PN.ID1 ---
Date of Service
Date of Service: January 08, 2025
Today's Communication
DC antibotic
Assessment / Plan
Relapse of drug fevers - resolved off nitrofurantoin
Hepatitis - mild, resolving
s/p TME h/o TBI
- blood cultures x3 prior to starting antibiotics on 01/05 - remains negative; she did have 1 of 2 blood cultures with CONS 12/30 which was assessed as probable contaminant
- TTE - no gross vege
- CT ab/pelvis notable for possible hepatitis; mildly increased LFTs which is new from last visit and possibly an adr - improved today
- hep a/b/c negative
-DC Vancomycin
CPPD disease of the bilateral knees
- management per orthopedics/IM service
- no objection to antiinflammatories including steroids from ID perspective; currently on oxycodone
Chronic Diarrhea - resolved
RA/Psoriatic arthritis on Ixekizumab
Immunosuppression
- CMV viral load on serum not detected
would require tissue biopsy via colonoscopy for confirmation if diarrhea persists, happily diarrhea seems to be resolving
- would typically be screened for TB prior to initiation of Ixekizumab
- stool culture negative, C difficile negative
- scheduled for outpatient colonoscopy
Chief Complaint
-: Fever
Subjective / Review of Systems
Feels much improved.
Vital Signs / Physical Exam
Vital Signs
Vital Signs
Temp Pulse Resp BP Pulse Ox
98.2 F 57 18 121/72 94
01/08/25 07:00 01/08/25 07:00 01/08/25 07:00 01/08/25 07:00 01/08/25 07:00
Physical Exam
Constitutional: No Acute Distress
Cardiovascular: Regular Rate and S1/S2
Pulmonary: Clear; Negative Symmetric
Gastrointestinal: Soft, Non Tender, Non Distended and Normal Bowel Sounds
Genito-Urinary: Negative CVA Tenderness
Neurological: AO x 3
Objective Data
Lab Data
Lab Results
01/08/25 08:02
01/08/25 08:02
ESR 22 mm/hour (0-20) H 01/06/25 04:36
Estimated Creat Clear 77 ml/min 01/08/25 08:02
Lactic Acid 1.3 mmol/L (0.7-2.0) 01/06/25 04:36
Total Bilirubin 0.4 mg/dl (0.2-1.3) 01/08/25 08:02
AST 19 U/L (14-36) 01/08/25 08:02
ALT 35 U/L (0-35) 01/08/25 08:02
Alkaline Phosphatase 40 U/L (38-126) 01/08/25 08:02
C-Reactive Protein 76.00 mg/L (0.0-10.00) H 01/06/25 04:36
Most recent labs reviewed.
Micro Results:
01/05/25 16:30 Blood Culture - Preliminary
Blood/Venous No Growth in 48 hours- Final report to follow
01/05/25 15:45 Blood Culture - Preliminary
Blood/Venous No Growth in 48 hours- Final report to follow
01/05/25 12:42 Blood Culture - Preliminary
Blood/Venous No Growth in 48 hours- Final report to follow
01/05/25 12:42 Blood Culture - Preliminary
Blood/Venous No Growth in 48 hours- Final report to follow
01/05/25 12:42 Salmonella/Shigella Culture - Final
Feces/Stool No Salmonella, Shigella, Aeromonas or Plesiomonas species
isolated.
Campylobacter Culture - Final
No Campylobacter species isolated.
Shiga Toxin Test - Final
No E. coli Shiga Toxin 1 or 2 detected.
01/06/25 16:05 Body Fluid Culture - Preliminary
Joint Fluid No Growth After 18-24 Hours
Gram Stain - Preliminary
01/06/25 16:07 Body Fluid Culture - Preliminary
Joint Fluid No Growth After 18-24 Hours
Gram Stain - Preliminary
01/05/25 12:43 C. difficile GDH Antigen & Toxins - Final
Feces/Stool Negative for toxigenic C.difficile
01/05/25 11:56 Influenza Types A & B (JAMEL) - Final
Nasal Swab Negative for Influenza A & B, NAAT
Negative results must be combined with clinical observations
and patient history.
Nucleic Acid Amplification test (NAAT)performed on the
[employer] platform.
Care Review
Plan reviewed with: Physician (Dr. Reyes)
[2025-01-08 11:00] VITALS: BP 135/79
[2025-01-08 11:49] LABS: Glucose - Point of Care 209 mg/dl (70-99)
[2025-01-08] MEDS: NOVOLOG FLEXPEN-LOW RESISTANCE 2 UNITS SC (12:46)
--- NOTE | 2025-01-08 14:14 | W.PN.HOSP.TC ---
Today's Communication/Plan
-
Monitor off abx
likely discharge tomorrow if remains stable/no significant signs systemic infection
Assessment / Plan
Assessment / Plan
Physical Exam
General: No pallor, cyanosis, or jaundice.
HEENT: Throat clear. PERRLA Normocephalic atraumatic, moist mucus membrane
NECK: Supple. No JVD Carotid Bruits
RESPIRATORY: Lungs clear to auscultation. No crackles wheezes stridor
CVS: S1, S2 normal. RRR. No murmur, rub or gallop.
ABDOMEN: Soft, non-tender. No distension. BS+/normal.
EXTREMITIES: No peripheral cyanosis or edema
X RAY EQUIPMENT TESTER: AOx3 conversant coherent memory issues noted likely baseline
IMPRESSION:
69F HTn HLD DM h/o CVA TBI memory loss here for evaluation weakness AMS chronic diarrhea recently here for evaluation fever unknown origin treated for possible sepsis. Patient subsequently improved consistently afebrile, negative infection work up.
Vital signs stable, patient was in her usual state of health at discharge. At the time of discharge source of fever was thought to be due to possible acute viral syndrome (not COVID or Flu) vs possible drug reaction to Macrobid. Though drug
reaction to Macrobid seemed unlikely as patient had been on the medication for months, UTI prophylaxis, without issues. However following discharge, and after resuming home Macrobid, patient returns next day with confusion/lethargy and high fever.
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 Tachycardic with elevated white count, presentation also concerning possible sepsis. BP stable, lactic acidosis 3.4 since improved with 2L bolus to 2.1. Extensive imaging in
ED was largely neg for acute abn's, possible hepatitis was noted on CT abd/pelvis. Mild transaminitis noted in labs. Fever treated with IV Tylenol and Ibuprofen, patient's mental status improving as fever improves.
PLAN:
#Severe Fever possible sepsis (fever tachycardia leukocytosis) unclear etiology
#Acute Toxic Metabolic Encephalopathy 2/2 fever
#Possible drug fever d/t Macrobid
#Lactic Acidosis
#chronic diarrhea (appears to be resolved at this time)
[facility] admit
ID eval appreciated all abx discontinued
monitor off abx
IV tylenol ibuprofen prn Fever- switched to oral with improvement in mental status and tolerating diet. Ibuprofen prn discontinued with consistent resolution fever
IVF support completed, Tolerating diet
compazine prn nausea
Follow blood cultures NGTD
Cdiff neg
no acute abn's noted CXR urinalysis CT head CT sinuses
macrobid discontinued indefinitely at this time
Fever since resolved at this time
ECHO appreciated normal systolic function no evidence vegetation or significant change from prior ECHO 06/23/24
#Reports heaviness on deep breath but otherwise stable respiratory status on room air, denies SOB at rest
CXR no acute abn's
Incentive Spirometer
outpt follow up with pulmonology for PFTs recommended
#Mild transaminitis
#Possible hepatitis noted on CT abd/pelvis
monitor LFTs
DMII
- home metformin held on admission, eventual restart
- low dose sliding scale insulin
- update A1c 7.5
h/o CVA
h/o TBI
- continue aspirin statin
- continue home donepezil
RA/Psoriatic Arthritis on Ixekizumab
Pseudogout
b/l knee pain swelling hx fall
-home prednisone resumed
-knee X-rays appreciated arthritis significantly progressed, no fractures/dislocation noted, Lt knee X-ray noted moderate joint effusion
-Orthopedic appreciated b/l arthrocentesis knees performed, fluid studies note CPPD crystals likely pseudogout, cultures ngtd
-lidocaine patches
-pain control
-follow up with her outpt fuel injection servicer advised
mild hypokalemia
Hypomagnesemia
-monitor and replete as necessary
Chronic Diarrhea
-Follow Stool studies
-outpatient GI follow up
-diarrhea appears to be resolved at this time
dvt ppx Lovenox
GI ppx Protonix
Full Code
Medically stable for downgrade to Tele
Discussed with patient and patient's daughter Екатерина
I spent a total of 35 minutes with the patient or on the floor. More than 50% of this time involved counseling and coordination of care.
Anticipated Discharge: Within 24 hours
Subjective/Interval History
-
Date of Service: January 08, 2025
no acute distress, appears comfortable at this time. Denies new acute issues.
Objective Data
-
Labs:
Laboratory Results
01/08/25
08:02
WBC 6.2
Hgb 9.3 L
Hct 28.4 L
Plt Count 269 D
Sodium 140
Potassium 3.8
Chloride 106
Carbon Dioxide 31 H
BUN 10
Creatinine 0.7
Glucose 150 H
Calcium 8.7
Total Bilirubin 0.4
AST 19
ALT 35
Alkaline Phosphatase 40
Vital Signs:
Vital Signs
Temp Pulse Resp BP Pulse Ox
97.3 F 63 18 135/79 97
01/08/25 11:00 01/08/25 11:00 01/08/25 11:00 01/08/25 11:00 01/08/25 11:00
I&O
01/07/25 01/08/25 01/09/25
06:59 06:59 06:59
Intake Total 350 / 350 820 / 820
Balance 350 / 350 820 / 820
[2025-01-08 15:12] VITALS: BP 108/74
[2025-01-08 16:24] LABS: Glucose - Point of Care 270 mg/dl (70-99)
[2025-01-08] MEDS: GLUCOPHAGE 500 MG PO (16:28)
[2025-01-08] MEDS: LOVENOX 40 MG SC (16:29)
[2025-01-08] MEDS: LIPITOR 80 MG PO (16:29)
[2025-01-08] MEDS: NOVOLOG FLEXPEN-LOW RESISTANCE 3 UNITS SC (16:30)
[2025-01-08 19:21] VITALS: BP 129/72
[2025-01-08] MEDS: ARICEPT 10 MG PO (21:21)
[2025-01-08 23:22] VITALS: BP 120/60
[2025-01-09 03:05] VITALS: BP 118/63
[2025-01-09 03:14] LABS: Glucose - Point of Care 121 mg/dl (70-99)
[2025-01-09 06:42] LABS: Hematocrit 28.8 % (37.0-47.0); Hemoglobin 9.7 g/dL (12.0-16.0); Mean Corp Hgb Conc. 33.7 g/dL (33.0-37.0); Mean Corpuscular Volume 89.2 fL (81.0-99.0); Mean Platelet Volume 9.2 fL (7.4-10.4); Platelet Count 328 10^3/uL (130-400); Red Blood Cell Count 3.23 10^6/uL (4.20-5.40); Red Cell Dist. Width 12.8 % (11.5-14.5); White Blood Cell Count 7.5 10^3/uL (4.8-10.8)
[2025-01-09 07:00] VITALS: BP 136/78
[2025-01-09 07:01] LABS: ALT (SGPT) 31 U/L (0-35); AST (SGOT) 18 U/L (14-36); Albumin 3.1 g/dl (3.5-5.0); Alkaline Phosphatase 42 U/L (38-126); Blood Urea Nitrogen 8 mg/dl (7-17); Calcium 8.8 mg/dl (8.4-10.2); Carbon Dioxide 30 mmol/L (22-30); Chloride 110 mmol/L (98-107); Estimated Creatinine Clearance 77 ml/min; Glucose 113 mg/dl (70-99); Magnesium 1.6 mg/dl (1.6-2.3); Phosphorus 3.7 mg/dl (2.5-4.5); Potassium 3.7 mmol/L (3.5-5.1); Sodium 143 mmol/L (135-145); Total Bilirubin 0.5 mg/dl (0.2-1.3); Total Protein 5.3 g/dl (6.3-8.2); eGFR > 60.00
--- NOTE | 2025-01-09 07:32 | W.PN.HOSP.TC ---
Addendum entered and electronically signed by Jorge Reyes MD 01/09/25 13:30:
Negative Infection work up, sepsis therefore ruled out
Original Note:
Today's Communication/Plan
-
discharge
Assessment / Plan
Assessment / Plan
Physical Exam
General: No pallor, cyanosis, or jaundice.
HEENT: Throat clear. PERRLA Normocephalic atraumatic, moist mucus membrane
NECK: Supple. No JVD Carotid Bruits
RESPIRATORY: Lungs clear to auscultation. No crackles wheezes stridor
CVS: S1, S2 normal. RRR. No murmur, rub or gallop.
ABDOMEN: Soft, non-tender. No distension. BS+/normal.
EXTREMITIES: No peripheral cyanosis or edema
NURSE RECRUITER: AOx3 conversant coherent memory issues noted likely baseline
IMPRESSION:
69F HTn HLD DM h/o CVA TBI memory loss here for evaluation weakness AMS chronic diarrhea recently here for evaluation fever unknown origin treated for possible sepsis. Patient subsequently improved consistently afebrile, negative infection work up.
Vital signs stable, patient was in her usual state of health at discharge. At the time of discharge source of fever was thought to be due to possible acute viral syndrome (not COVID or Flu) vs possible drug reaction to Macrobid. Though drug
reaction to Macrobid seemed unlikely as patient had been on the medication for months, UTI prophylaxis, without issues. However following discharge, and after resuming home Macrobid, patient returns next day with confusion/lethargy and high fever.
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 Tachycardic with elevated white count, presentation also concerning possible sepsis. BP stable, lactic acidosis 3.4 since improved with 2L bolus to 2.1. Extensive imaging in
ED was largely neg for acute abn's, possible hepatitis was noted on CT abd/pelvis. Mild transaminitis noted in labs. Fever treated with IV Tylenol and Ibuprofen, patient's mental status improving as fever improves.
PLAN:
#Severe Fever possible sepsis (fever tachycardia leukocytosis) unclear etiology
#Acute Toxic Metabolic Encephalopathy 2/2 fever
#Possible drug fever d/t Macrobid
#Lactic Acidosis
#chronic diarrhea (appears to be resolved at this time)
[facility] admit
ID eval appreciated all abx discontinued
monitored off abx, remains stable afebrile
IV tylenol ibuprofen prn Fever- switched to oral with improvement in mental status and tolerating diet. Ibuprofen prn discontinued with consistent resolution fever
IVF support completed, Tolerating diet
compazine prn nausea
Follow blood cultures NGTD
Cdiff neg
no acute abn's noted CXR urinalysis CT head CT sinuses
macrobid discontinued indefinitely at this time
Fever since resolved at this time
ECHO appreciated normal systolic function no evidence vegetation or significant change from prior ECHO 06/23/24
#Reports heaviness on deep breath but otherwise stable respiratory status on room air, denies SOB at rest
CXR no acute abn's
Incentive Spirometer
outpt follow up with pulmonology for PFTs recommended
#Mild transaminitis
#Possible hepatitis noted on CT abd/pelvis
transaminitis resolved
neg hepatitis serology
DMII
- home metformin held on admission, eventual restart
- low dose sliding scale insulin
- update A1c 7.5
h/o CVA
h/o TBI
- continue aspirin statin
- continue home donepezil
RA/Psoriatic Arthritis on Ixekizumab
Pseudogout
b/l knee pain swelling hx fall
-home prednisone resumed
-knee X-rays appreciated arthritis significantly progressed, no fractures/dislocation noted, Lt knee X-ray noted moderate joint effusion
-Orthopedic appreciated b/l arthrocentesis knees performed, fluid studies note CPPD crystals likely pseudogout, cultures ngtd
-lidocaine patches
-pain control
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
mild hypokalemia
Hypomagnesemia
-monitor and replete as necessary
Chronic Diarrhea
-Follow Stool studies
-outpatient GI follow up
-diarrhea appears to be resolved at this time
dvt ppx Lovenox
GI ppx Protonix
Full Code
Medically stable for discharge home with home services and outpatient follow up recommendations.
Total Time Preparing Discharge __40 minutes including examination of the patient, summary of the hospital stay, instructions for continuing care to all relevant caregivers; and preparation of discharge records, prescriptions, and referral
forms if necessary.
Anticipated Discharge: Today
Subjective/Interval History
-
Date of Service: January 09, 2025
No acute distress appears comfortable at this time. Overall reports feeling well. Denies new acute issues. Eager to go home.
Objective Data
-
Labs:
Laboratory Results
01/09/25
06:18
WBC 7.5
Hgb 9.7 L
Hct 28.8 L
Plt Count 328 D
Sodium 143
Potassium 3.7
Chloride 110 H
Carbon Dioxide 30
BUN 8
Creatinine 0.7
Glucose 113 H
Calcium 8.8
Total Bilirubin 0.5
AST 18
ALT 31
Alkaline Phosphatase 42
Vital Signs:
Vital Signs
Temp Pulse Resp BP Pulse Ox
98.3 F 56 20 118/63 95
01/09/25 03:05 01/09/25 03:05 01/09/25 03:05 01/09/25 03:05 01/09/25 03:05
I&O
01/08/25 01/09/25 01/10/25
06:59 06:59 06:59
Intake Total 820 / 820 1200 / 1200
Balance 820 / 820 1200 / 1200
[2025-01-09] MEDS: ASPIR LOW (ENTERIC COATED) 81 MG PO (07:42)
[2025-01-09] MEDS: LIDOCAINE 4% PATCH 2 PATCH TOPICAL (07:42)
[2025-01-09] MEDS: NEURONTIN 400 MG PO (07:42)
[2025-01-09] MEDS: GLUCOPHAGE 1000 MG PO (07:42)
[2025-01-09] MEDS: DELTASONE 10 MG PO (07:42)
[2025-01-09] MEDS: LEXAPRO 20 MG PO (07:42)
[2025-01-09] MEDS: PROTONIX IV 40 MG IV (07:43)
[2025-01-09] MEDS: NSS (PRESERVATIVE FREE) 10 ML IV (07:43)
[2025-01-09] MEDS: NOVOLOG FLEXPEN-LOW RESISTANCE SC (07:50)
[2025-01-09 07:52] LABS: Glucose - Point of Care 109 mg/dl (70-99)
--- NOTE | 2025-01-09 08:49 | CM ---
Chart reviewed and plan is for patient to return to home with [facility] and caregivers from [facility].
Plan; Home with [facility].
--- NOTE | 2025-01-09 08:55 | W.DCSUMMARY ---
Discharge Summary
Discharge Data
Date of Admission: 01/05/25
Date of Discharge: 01/09/25
-
Pending Results: Yes
Additional Pending Results:
Official Culture Results
Discharge Plan
-
Patient Disposition: Home with Home Care
Discharge Diagnosis/Procedures: Fever, Toxic Metabolic Encephalopathy, likely secondary to drug reaction Macrobid
Sepsis ruled out
Pseuodgout bilateral knees
Hypomagnesemia
Mild transaminitis likely due to drug fever/reaction as above, since resolved
Condition: Good
Diet: Diabetic, Carb Controlled
Activity: As tolerated and With Walker
Driving Restrictions: Not until seen by your Dr
Bathing Restrictions: None
Blood Work: Repeat CBC CMP and Magnesium level with primary care provider in 1 week of discharge.
Others Tests: Follow up with pulmonology for formal pulmonary function testing in 1 month of discharge.
Other Services: PT and OT
Activity Restrictions/Additional Instructions:
Follow up with primary care provider in 1 week of discharge. Follow up with your [employer] and Pulmonology in 2-4 weeks of discharge.
Lidocaine patches prescribed for knee pain arthritis/pseudogout.
Magnesium supplementation prescribed for low levels.
Amlodipine discontinued as blood pressure has been well controlled during stay without.
Macrobid has been discontinued due to severe drug Fever reaction.
It is recommend that you hold further herbal supplementation (including Boswellia samanta extract) until cleared to use by your primary care provider or other healthcare provider involved in your care.
Please take medications as prescribed/recommended and follow up with primary care provider and/or other healthcare provider involved in your care for refills and/or further adjustment to your medication regimen as necessary.
Referrals:
Yareli Mckeon PA-C [Family Provider] - in one week
Osman Smith MD [Active] - in two to four weeks
Prescriptions:
New
lidocaine 4 % Adhesive Patch,Medicated
2 patch topical DAILY Qty: 15 0RF
Rx Instructions:
1 each knee
magnesium oxide 500 mg magnesium Tablet
500 mg PO DAILY Qty: 30 0RF
Continued
metformin 500 mg Tablet
500 mg PO QPM
atorvastatin 80 mg Tablet
80 mg PO QPM
gabapentin 400 mg Capsule
400 mg PO BID
aspirin 81 mg Tablet,Delayed Release (Dr/Ec)
81 mg PO DAILY
escitalopram oxalate 20 mg Tablet
20 mg PO DAILY
metformin 500 mg tablet
1,000 mg PO DAILY
hydrocodone-acetaminophen 10-325 mg Tablet
1 tab PO Q6HPRN PRN (Reason: SEVERE PAINS)
memantine 5 mg Tablet
10 mg PO DIRECTED
Rx Instructions:
starting 12/28/24 take one tablet qpm for 1 week, then 1 tablet bid for 1 week then 1 tablet am and 2 tabs qpm for 1 week then 2 tabs bid
prednisone 10 mg Tablet
10 mg PO DAILY
donepezil 10 mg Tablet
10 mg PO HS
cyanocobalamin (vitamin B-12) 1,000 mcg Tablet
1,000 mcg PO DAILY
calcium carbonate [Calcium 600] 600 mg calcium (1,500 mg) Tablet
600 mg PO DAILY
ferrous sulfate 325 mg (65 mg iron) Tablet
325 mg PO QPM
cholecalciferol (vitamin D3) [Vitamin D3] 25 mcg (1,000 unit) Tablet
25 mcg PO DAILY
Taltz Syringe 80 mg/mL Syringe
80 mg SC MONTHLY
Held
Boswellia samanta extract 307 mg Tablet
250 mg PO DAILY
Hold Instructions: Hold further herbal supplementation use at this time until cleared by your primary care provider or other healthcare provider involved in your care.
Discontinued
amlodipine 5 mg Tablet
5 mg PO DAILY
nitrofurantoin monohyd/m-cryst [Macrobid] 100 mg Capsule
100 mg PO QPM
Discharge Orders:
Discharge Patient (As Directed); Ordered 01/09/25
Ordered By: Jorge Reyes
Discharge Date and Time
Print Language: LAO
[2025-01-09] MEDS: MAGNESIUM OXIDE 500 MG PO (09:05)
== END 2025-01-09 11:52 | disposition home health service (06) | DRG 92 ==
LOC: 4 WEST ACU 16:00
PROVIDERS: ADMITTING PHYSICIAN Internal Medicine; CONSULT PHYSICIAN Orthopaedic Surgery; CONSULT PHYSICIAN Student in an Organized Health Care Education/Training Program; EMERGENCY PHYSICIAN Emergency Medicine; FAMILY PHYSICIAN Physician Assistant Medical
PROC: 0S9D3ZX Drainage of Left Knee Joint, Percutaneous Approach, Diagnostic (ICD-10-PCS; 2025-01-07)
PROC: 0S9C3ZX Drainage of Right Knee Joint, Percutaneous Approach, Diagnostic (ICD-10-PCS; 2025-01-07)
DX: G92.8 Other toxic encephalopathy (principal); D84.89 Other immunodeficiencies; I69.354 Hemiplegia and hemiparesis following cerebral infarction affecting left non-dominant side; E87.20 Acidosis, unspecified; R50.2 Drug induced fever; T37.8X5A Adverse effect of other specified systemic anti-infectives and antiparasitics, initial encounter; Y92.9 Unspecified place or not applicable; R41.89 Other symptoms and signs involving cognitive functions and awareness; E78.00 Pure hypercholesterolemia, unspecified; I10 Essential (primary) hypertension; J45.909 Unspecified asthma, uncomplicated; M06.9 Rheumatoid arthritis, unspecified; L40.50 Arthropathic psoriasis, unspecified; F32.9 Major depressive disorder, single episode, unspecified; R19.7 Diarrhea, unspecified; K76.0 Fatty (change of) liver, not elsewhere classified; E87.6 Hypokalemia; M17.0 Bilateral primary osteoarthritis of knee; M21.372 Foot drop, left foot; N39.41 Urge incontinence; E11.9 Type 2 diabetes mellitus without complications; M25.462 Effusion, left knee; E83.42 Hypomagnesemia; M25.461 Effusion, right knee; K75.9 Inflammatory liver disease, unspecified; E78.5 Hyperlipidemia, unspecified; W06.XXXA Fall from bed, initial encounter; Y93.89 Activity, other specified; Y92.003 Bedroom of unspecified non-institutional (private) residence as the place of occurrence of the external cause; Z11.52 Encounter for screening for COVID-19; Z87.820 Personal history of traumatic brain injury; Z87.891 Personal history of nicotine dependence; Z83.3 Family history of diabetes mellitus; Z80.9 Family history of malignant neoplasm, unspecified; Z90.11 Acquired absence of right breast and nipple; Z85.3 Personal history of malignant neoplasm of breast; Z79.2 Long term (current) use of antibiotics; Z79.82 Long term (current) use of aspirin; Z79.84 Long term (current) use of oral hypoglycemic drugs; Z79.52 Long term (current) use of systemic steroids
CPT/HCPCS: 70450; 70486; 71045; 73030; 73560; 74177; 80053; 81003; 82607; 82728; 82746; 82962; 83036; 83540; 83550; 83605; 83735; 84100; 85025; 85027; 85652; 86140; 86704; 86706; 86708; 86803; 87015; 87040; 87045; 87046; 87070; 87205; 87324; 87340; 87427; 87449; 87497; 87502; 87811; 89051; 89060; 93005; 93306; 96361; 96374; 97112; 97163; 97167; 99285; Q9967

== ENCOUNTER → 2025-02-11 12:51 | Outpatient (REF) | payer OTHER, SELFPAY | LOC: WDC 12:51 | PROVIDERS: ATTENDING PHYSICIAN Physician Assistant Medical | DX: K52.9 Noninfective gastroenteritis and colitis, unspecified (principal); Z12.31 Encounter for screening mammogram for malignant neoplasm of breast | CPT/HCPCS: 77063; 77067 ==

== ENCOUNTER → 2025-02-28 15:22 | Outpatient (REF) | payer OTHER, SELFPAY | LOC: MRI 3T 15:22 | PROVIDERS: ATTENDING PHYSICIAN Physician Assistant Surgical; FAMILY PHYSICIAN Physician Assistant Medical | DX: M19.012 Primary osteoarthritis, left shoulder (principal) | CPT/HCPCS: 73221 ==

== ENCOUNTER 2025-03-22 11:41 | Outpatient (RCR) | payer OTHER, SELFPAY | END 2025-03-22 23:59 | disposition home or self-care (01) | LOC: ROT 11:41 | PROVIDERS: ATTENDING PHYSICIAN Orthopaedic Surgery Orthopaedic Trauma; FAMILY PHYSICIAN Physician Assistant Medical | DX: M18.11 Unilateral primary osteoarthritis of first carpometacarpal joint, right hand (principal); Z73.6 Limitation of activities due to disability | CPT/HCPCS: 97014; 97018; 97022; 97110; 97166; 97535 ==

== ENCOUNTER 2025-04-05 11:18 | Outpatient (RCR) | payer OTHER, SELFPAY | END 2025-04-05 23:59 | disposition home or self-care (01) | LOC: ROT 11:18 | PROVIDERS: ATTENDING PHYSICIAN Orthopaedic Surgery Orthopaedic Trauma; FAMILY PHYSICIAN Physician Assistant Medical | DX: Z47.89 Encounter for other orthopedic aftercare (principal); M18.11 Unilateral primary osteoarthritis of first carpometacarpal joint, right hand; Z73.6 Limitation of activities due to disability | CPT/HCPCS: 97022; 97110 ==

== ENCOUNTER 2025-04-07 23:17 | Observation (INO) | payer OTHER, SELFPAY ==
[2025-04-07 14:14] VITALS: BP 134/91
[2025-04-07 14:53] LABS: Hematocrit 38.0 % (37.0-47.0); Hemoglobin 12.2 g/dL (12.0-16.0); Mean Corp Hgb Conc. 32.1 g/dL (33.0-37.0); Mean Corpuscular Volume 90.9 fL (81.0-99.0); Nucleated Red Blood Cells % 0 %; Platelet Count 344 10^3/uL (130-400); Red Cell Dist. Width 13.0 % (11.5-14.5)
[2025-04-07 15:07] LABS: ALT (SGPT) 19 U/L (0-35); AST (SGOT) 24 U/L (14-36); Albumin 5.1 g/dl (3.5-5.0); Alkaline Phosphatase 64 U/L (38-126); Blood Urea Nitrogen 25 mg/dl (7-17); Calcium 10.1 mg/dl (8.4-10.2); Carbon Dioxide 29 mmol/L (22-30); Chloride 104 mmol/L (98-107); Glucose 116 mg/dl (70-99); Lipase 350 U/L (23-300); Potassium 4.2 mmol/L (3.5-5.1); Sodium 140 mmol/L (135-145); Total Protein 7.7 g/dl (6.3-8.2); eGFR > 60.00
[2025-04-07 15:19] LABS: Urine Character Clear (Clear)
[2025-04-07 15:42] LABS: Urine Squamous Cell >30 /LPF (Few)
[2025-04-07 15:43] LABS: Urine Red Blood Cell 0-2 /HPF (0-2)
[2025-04-07 18:28] VITALS: BMI 22.3
--- NOTE | 2025-04-07 18:57 | ED.GENMED ---
History of Present Illness
General
Chief Complaint: Abdominal Symptoms
Source: patient
Exam Limitations: none
Time Seen by Provider: 04/07/25 18:31
History of Present Illness
History of Present Illness:
69-year-old female presents with a weeks worth of diarrhea. She estimates maybe 5 episodes of watery stool a day. No blood in the stool. No pain. Every time she eats she has a bowel movement. She now notes she is fatigued and wiped out. She is
too weak to take a shower prior to coming here.
Past History
Past History
ED Past Medical History: Asthma, Cancer (Breast carcinoma), CVA, HTN, Hypercholesterolemia, NIDDM, Psychiatric (Major depression) and Other (Psoriatic arthritis, rheumatoid arthritis, concussion August 2022, right knee hematoma)
ED Past Surgical History: Orthopedic (Rotator cuff repair 2011) and Other (Right mastectomy, inguinal herniorrhaphy)
Social History
Tobacco: Other (Distant smoker)
Alcohol: Chronic alcoholic
Drug: None
Personal:
Living: with family
Family History
Family History: Diabetes and Cancer
Phy Exam
Physical Exam
Physical Exam:
General: Well-appearing female no acute respiratory distress
HEENT: Normocephalic
Heart: Regular rate and rhythm
Lungs: Clear no wheeze
Abdomen is soft nontender nondistended
Skin is warm no rash
Course
Orders/Labs/Results
Orders:
Orders
04/07/25 14:38
Urinalysis Urgent
Date Specimen was Collected: 04/07/25
Time Specimen was Collected: 14:19
Urine Microscopic Urgent
Date Specimen was Collected: 04/07/25
Time Specimen was Collected: 14:19
04/07/25 14:44
Complete Blood Count/With Diff Urgent
Comprehensive Metabolic Panel Urgent
Lipase Urgent
04/07/25 18:49
Ova & Parasites Giardia/Crypto AG [Giardia/Cryptosporidium Ag] Urgent
DAVID Source: Feces/Stool
Specimen Description:
STOOL [C difficile Antigen & Toxins] Urgent
DAVID Source: Feces/Stool
Specimen Description:
Stool Culture Urgent
DAVID Source: Feces/Stool
Specimen Description:
0.9% Sodium Chloride 1000 ml [Nss] 1,000 ml IV BOLUS
04/07/25 21:25
CT Abd/pelvis W Iv Cont Urgent
Comment:
Reason For Exam: diarrhea
04/07/25 21:55
HYDROmorphone [Dilaudid] 0.5 mg IV NOW STA
Abnormal Lab Results
04/07/25 04/07/25
14:38 14:44
WBC 13.3 H 10^3/uL
(4.8-10.8)
RBC 4.18 L 10^6/uL
(4.20-5.40)
MCHC 32.1 L g/dL
(33.0-37.0)
Abs Immat Gran (auto) 0.1 H 10^3/uL
(0-0.05)
Absolute Neuts (auto) 10.7 H 10^3/uL
(1.4-6.5)
Absolute Monos (auto) 1.2 H 10^3/uL
(0.1-0.6)
Neutrophils % 80.7 H %
(42.2-75.2)
Lymphocytes % 9.3 L %
(20.5-51.1)
BUN 25 H mg/dl
(7-17)
Glucose 116 H mg/dl
(70-99)
Albumin 5.1 H g/dl
(3.5-5.0)
Lipase 350 H U/L
(23-300)
Ur Leukocyte Esterase 1+ A
(Negative)
Urine WBC 6-10 A /HPF
(0-5)
Urine Bacteria Moderate A
(Negative)
04/07/25 14:44
04/07/25 14:44
Vital Signs
Initial and Last Documented VS:
Initial Vital Signs
Temp Pulse Resp BP Pulse Ox
98.4 F 64 20 134/91 98
04/07/25 14:14 04/07/25 14:14 04/07/25 14:14 04/07/25 14:14 04/07/25 14:14
Last Documented Vital Signs
Temp Pulse Resp BP Pulse Ox
98.4 F 53 18 136/76 99
04/07/25 14:14 04/07/25 19:13 04/07/25 19:13 04/07/25 22:03 04/07/25 22:05
MDM/Problems Addressed
Differential Diagnosis Includes:
Diarrhea persistent over 1 week now with fatigue and weakness. Consider viral illness versus dehydration versus electrolyte abnormality. Will check stool cultures. Check CT scan. Labs pending. Fluids ordered.
*Pulse Oximetry
SaO2: 98
Oxygen Mode of Delivery: Room air
Patient hypoxic: no
*Critical Care Note
Total Time (30-74mins, 75-104mins- exclusive of procedures): Not Applicable
Update Note
Update Note:
Patient with significant weakness. Stool studies ordered but not provided by patient at this time. CT demonstrates enteritis. Will admit to hospital for weakness associated with diarrhea.
ED Attending Note
-
Portions of this chart may have been created with voice recognition software.� Occasional wrong word or��sound alike� substitutions may have occurred due to the inherent limitations of voice recognition software.
Discharge Plan
Departure
Patient Disposition: Admit
Date of Disposition: 04/07/25
Time of Disposition: 22:15
Presentation/result/management discussed w/ accepting MD/DO: Hospitalist
Discharge Problem:
Enteritis
Prescriptions:
No Action
metformin 500 mg Tablet
500 mg PO QPM
atorvastatin 80 mg Tablet
80 mg PO QPM
gabapentin 400 mg Capsule
400 mg PO BID
aspirin 81 mg Tablet,Delayed Release (Dr/Ec)
81 mg PO DAILY
escitalopram oxalate 20 mg Tablet
20 mg PO DAILY
metformin 500 mg tablet
1,000 mg PO DAILY
hydrocodone-acetaminophen 10-325 mg Tablet
1 tab PO Q6HPRN PRN (Reason: SEVERE PAINS)
memantine 5 mg Tablet
10 mg PO DIRECTED
Rx Instructions:
starting 12/28/24 take one tablet qpm for 1 week, then 1 tablet bid for 1 week then 1 tablet am and 2 tabs qpm for 1 week then 2 tabs bid
prednisone 10 mg Tablet
10 mg PO DAILY
donepezil 10 mg Tablet
10 mg PO HS
cyanocobalamin (vitamin B-12) 1,000 mcg Tablet
1,000 mcg PO DAILY
calcium carbonate [Calcium 600] 600 mg calcium (1,500 mg) Tablet
600 mg PO DAILY
ferrous sulfate 325 mg (65 mg iron) Tablet
325 mg PO QPM
cholecalciferol (vitamin D3) [Vitamin D3] 25 mcg (1,000 unit) Tablet
25 mcg PO DAILY
Boswellia samanta extract 307 mg Tablet
250 mg PO DAILY
Taltz Syringe 80 mg/mL Syringe
80 mg SC MONTHLY
lidocaine 4 % Adhesive Patch,Medicated
2 patch topical DAILY Qty: 15 0RF
Rx Instructions:
1 each knee
magnesium oxide 500 mg magnesium Tablet
500 mg PO DAILY Qty: 30 0RF
Referrals:
Yareli Mckeon PA-C [Family Provider, Family Practice]
Interventions
Interventions:
*Risk Screen - Suicide Last Done: 04/07/25 14:20
*General Assessment Last Done: 04/07/25 18:28
*Neglect/Abuse Screening Last Done: 04/07/25 14:20
*ED- Fall Risk Assessment Last Done: 04/07/25 18:28
*ED COVID-19 Vaccine History Last Done: 04/07/25 18:28
VV-Gnwiyw-Zkijzffyzu Assessment Last Done: 04/07/25 18:28
Discharge Date and Time
Print Language: ALBANIAN
[2025-04-07 19:12] VITALS: BP 155/81
[2025-04-07] MEDS: NSS 1000 IV (19:12)
[2025-04-07 20:00] VITALS: BP 116/74
[2025-04-07 21:16] VITALS: BP 125/75
[2025-04-07] MEDS: DILAUDID 0.5 MG IV (22:02)
[2025-04-07 22:03] VITALS: BP 136/76
--- NOTE | 2025-04-07 22:32 | HPS.HSE ---
Family Physician
-
Family Physician: Yareli Mckeon
Chief Complaint
-
dirrhea
History of Present Illness
HPI
69F HTN, HLD DM, HX CVA TBI memory loss, chronic diarrhea seen at ER:
- weeks worth of diarrhea.
- about 4- 5 episodes of watery stool a day.
- no blood in the stool. No pain.
- Every time she eats she has a bowel movement.
- fatigued and wiped out. She is too weak to take a shower prior to coming here.
Medical History
Past Medical History
Past Medical History: Reports Other (as above)
Past Surgical History: Reports Other (as above)
Social History
Tobacco: Non-smoker
Alcohol: None
Drug: None
Personal:
Living: With Family
Family History
Family History: Not pertinent (reviewed)
Allergies / Home Medications
Allergies reflects when Allergies were last updated in [employer].
Home Medications with original date entered in [employer]
Allergy/Medication List:
Allergies
Allergy/AdvReac Type Severity Reaction Status Date / Time
nitrofurantoin AdvReac Severe Fever Unverified 01/05/25 16:49
vancomycin AdvReac vancomycin Verified 01/05/25 17:36
infusion
reaction
01/05/25
Home Medications
amlodipine 5 mg tablet 5 mg PO DAILY Blood Pressure 09/11/24
aspirin 81 mg tablet,delayed release 81 mg PO DAILY Blood Clot Prevention/Tx 09/11/24
atorvastatin 80 mg tablet 80 mg PO QPM High Cholesterol 09/11/24
escitalopram oxalate 20 mg tablet 20 mg PO DAILY Mental Health/Anxiety 09/11/24
gabapentin 400 mg capsule 400 mg PO BID NEUROPATHIC PAIN 09/11/24
metformin 500 mg tablet 1,000 mg PO DAILY Diabetes 09/11/24
metformin 500 mg tablet 500 mg PO QPM Diabetes 09/11/24
Boswellia samanta extract 307 mg tablet 250 mg PO DAILY Supplement 12/31/24
calcium carbonate (Calcium 600) 600 mg PO DAILY Supplement 12/31/24
cholecalciferol (vitamin D3) 25 mcg (1,000 unit) tablet (Vitamin D3) 25 mcg PO DAILY Supplement 12/31/24
cyanocobalamin (vitamin B-12) 1,000 mcg tablet 1,000 mcg PO DAILY Supplement 12/31/24
donepezil 10 mg tablet 10 mg PO HS Mental Health/Anxiety 12/31/24
ferrous sulfate 325 mg (65 mg iron) tablet 325 mg PO QPM Supplement 12/31/24
hydrocodone 10 mg-acetaminophen 325 mg tablet 1 tab PO Q6HPRN PRN SEVERE PAINS 12/31/24
memantine 5 mg tablet 10 mg PO DIRECTED Mental Health/Anxiety 12/31/24
nitrofurantoin monohydrate/macrocrystals 100 mg capsule (Macrobid) 100 mg PO QPM CUSTODIAL PROPHYLAXIS 12/31/24
prednisone 10 mg tablet 10 mg PO DAILY INFLAMMATION 12/31/24
ixekizumab 80 mg/mL subcutaneous syringe (Taltz Syringe) 80 mg SC MONTHLY 01/05/25
Review of Systems
-
Constitutional: Reports No Symptoms
EENT: Reports No Symptoms
Respiratory: Reports No Symptoms
Cardiac: Reports No Symptoms
Abdomen/GI: Reports See HPI
: Reports No Symptoms
Musculoskeletal: Reports No Symptoms
Skin: Reports No Symptoms
Neurological: Reports No Symptoms
Endocrine: Reports No Symptoms
Hematologic/Lymphatic: Reports No Symptoms
Psych: Reports No Symptoms
Physical Exam
Vital Signs
Vital Signs
Temp Pulse Resp BP Pulse Ox
98.4 F 53 18 136/76 99
04/07/25 14:14 04/07/25 19:13 04/07/25 19:13 04/07/25 22:03 04/07/25 22:05
Physical Exam
General: Well Developed, Well Nourished and No Apparent Distress
HEENT: NormoCephalic, Moist mucous membranes and Atraumatic
Respiratory: Clear
Cardiac: S1/S2 and Regular Rhythm; No Murmur or Rub
GI: Soft, Non Tender, Non Distended and Normal Bowel Sounds; No Organomegaly
Rectal: Deferred by Provider
Musculoskeletal: No Clubbing, No Cyanosis and No Edema
Skin: No Rash
Neuro: Nonfocal/grossly intact
Laboratory Results
-
04/07/25 14:44
04/07/25 14:44
Laboratory Results
Total Bilirubin 0.9 mg/dl (0.2-1.3) 04/07/25 14:44
AST 24 U/L (14-36) 04/07/25 14:44
ALT 19 U/L (0-35) 04/07/25 14:44
Alkaline Phosphatase 64 U/L (38-126) 04/07/25 14:44
Lipase 350 U/L (23-300) H 04/07/25 14:44
Data Reviewed
-
CT Scan: Report Reviewed by me
Lab Data: Labs Reviewed by me
Impression/Plan
-
Vital Signs
Temp Pulse Resp BP Pulse Ox
98.4 F 53 18 136/76 99
04/07/25 14:14 04/07/25 19:13 04/07/25 19:13 04/07/25 22:03 04/07/25 22:05
01/05/25 01/06/25 04/07/25
11:56 04:36 14:44
WBC 13.3 H
Hgb 12.2
Plt Count 344
BUN 25 H
Creatinine 0.7
eGFR > 60.00
Albumin 5.1 H
CMV Qnt NAAT IU/mL Not detected
CMV Qnt NAAT log IU/mL Not detected
CMV Qnt NAAT Interp Not detected
Hepatitis A Ab Total Negative
Hep Bs Antigen Negative
Hep Bs Antibody Negative
Hep B Core Total Ab Negative
Hepatitis C Antibody Negative
SARS-CoV-2 Antigen Negative
Stool for C Diff
Stool for Ova and parasites
Stool Cx
CT Abd/pelvis W Iv Cont - mild enteritis with slightly prominent fluid-filled loops of small bowel noted in the abdomen.
Last hospitalist admission: Date of Admission: 01/05/25 - Date of Discharge: 01/09/25
Discharge Diagnosis/Procedures:
Fever, Toxic Metabolic Encephalopathy, likely secondary to drug reaction Macrobid
Sepsis ruled out
Pseudogout bilateral knees
Hypomagnesemia
Mild transaminitis likely due to drug fever/reaction as above, since resolved -
ASSESSMENT & PLAN
Pending Rx reconciliation
Chronic Diarrhea flare with associated weakness
RA/Psoriatic arthritis on Ixekizumab
Immunosuppression
On chr PO prednisone
Nl LFTs
- 01/06/25 NEG CMV viral load on serum - to consider require tissue biopsy for confirmation if diarrhea persists
- would typically be screened for TB prior to initiation
- stool culture and C Diff in progress
- ID consult and to consider GI consult to possibly move up colonoscopy if ongoing diarrhea (perhaps resolving)
DMT2
- hold home metformin
- low dose ISS
- Hgb A1c
HX CVA
HX TBI
- continue aspirin + statin
- continue donepezil
RA/Psoriatic Arthritis
- on chronic home prednisone
-lidocaine patches
-pain control
DVT Px:LMWH
Full code ,
OBS MS
[2025-04-07 23:00] VITALS: BP 124/75
[2025-04-08 00:12] VITALS: BP 116/64
[2025-04-08 00:14] VITALS: BMI 21.8
[2025-04-08 00:28] LABS: Glucose - Point of Care 132 mg/dl (70-99)
--- NOTE | 2025-04-08 00:37 | PTCARENOTE ---
Patient arrived to unit via stretcher with dx of chronic diarrhea flare with weakness. Patient AAOX3 but forgetful due to to CVA in December 2024 and TBI with memory loss. Bed alarm applied to bed. Patient educated on ringing call mayorga before getting up
on own. Patient expresses understanding of bed alarm and using call mayorga for safety precautions. Patient denies pain at current time. Pleasant and cooperative with care. No signs of distress noted. Patient states she is diabetic and did not want to
eat dinner. Blood sugar obtained at 132. Vitals stable. Patient did not have medications on her but did have an empty prescription bottle for Vicodin. Attempted to reconcile home medication list with patient but due to memory loss patient was not
able to accurately verify dosages. Patient states will visit tomorrow and can verify medications at that time. all mayorga within reach. Bed alarm plugged in and functioning properly.
[2025-04-08] MEDS: NSS 1000 IV ×2 (00:45→11:55)
[2025-04-08 07:00] VITALS: BP 137/71
[2025-04-08 07:35] LABS: Hematocrit 32.0 % (37.0-47.0); Hemoglobin 10.4 g/dL (12.0-16.0); Mean Corp Hgb Conc. 32.5 g/dL (33.0-37.0); Mean Corpuscular Volume 90.9 fL (81.0-99.0); Platelet Count 287 10^3/uL (130-400); Red Cell Dist. Width 13.0 % (11.5-14.5)
[2025-04-08 07:38] LABS: Glucose - Point of Care 150 mg/dl (70-99)
[2025-04-08 08:06] LABS: Blood Urea Nitrogen 19 mg/dl (7-17); Calcium 8.9 mg/dl (8.4-10.2); Carbon Dioxide 27 mmol/L (22-30); Chloride 110 mmol/L (98-107); Estimated Creatinine Clearance 77 ml/min; Glucose 137 mg/dl (70-99); Magnesium 1.9 mg/dl (1.6-2.3); Potassium 4.3 mmol/L (3.5-5.1); Sodium 139 mmol/L (135-145); eGFR > 60.00
--- NOTE | 2025-04-08 08:25 | PTCARENOTE ---
Called both the and daughter, but no answer to complete Shweta's medication rec. Will attempt to call again later today
[2025-04-08] MEDS: NOVOLOG FLEXPEN-LOW RESISTANCE SC (08:53)
[2025-04-08] MEDS: DELTASONE 10 MG PO (08:53)
[2025-04-08] MEDS: ASPIR LOW (ENTERIC COATED) 81 MG PO (08:53)
[2025-04-08 08:57] LABS: Glycohemoglobin (HgbA1c) 7.0 % (4.0-5.6)
[2025-04-08 11:52] LABS: Glucose - Point of Care 229 mg/dl (70-99)
--- NOTE | 2025-04-08 11:52 | CON.ID ---
Consultation
-
Date/Time Consultation Requested: 04/08/2025 0007
Date/Time Consultation Performed: 04/08/2025 1150
Requesting Provider: Dr. Regulo Ferris
Performing Provider: Dr. Caitlyn Do
Reason for Consultation: Chronic diarrhea, immunosupppressed host
Chief Complaint / Past History
Chief Complaint
Diarrhea
History of Present Illness
69-year-old female with multiple medical problems including diabetes mellitus, RA/psoriatic arthritis on biologic and prednisone who presented to the hospital yesterday due to weakness. She reports 3-week history of diarrhea with watery brown
stools about 4-5 times a day. No other symptoms. No fever, chills, sweats. No nausea, vomiting, abdominal pain, or cramping. No new medicines. No recent antibiotic. No one else in the household ill. No travel. Diarrhea occurs mostly during
the day. Soon after eating, she has diarrhea. She was becoming weaker and therefore she came to the hospital. She is afebrile. CT of the abdomen pelvis showed mild enteritis. She is placed on clear liquid diet. Diarrhea apparently resolved.
She had formed stool this am.
Past History
Additional Past Medical History:
NIDDM,
Asthma,
CVA,
essential HTN,
RA/psoriatic arthritis on prednisone and biologic
Hypercholesterolemia,
Major depression
concussion August 2022
right knee hematoma
Atrophic vaginitis
Primary osteoarthritis of both knees
Gait abnormality
Foot drop, left
Neuropathic pain
Cognitive impairment
Fatty liver
Low vitamin D level
Urgency incontinence
Additional Past Surgical History:
Rotator cuff repair 2011
Breast carcinoma s/p R mastectomy
inguinal herniorrhaphy
Allergy History:
nitrofurantoin Adverse Reaction (Severe, Verified 04/07/25 14:18)
Fever
vancomycin Adverse Reaction (Verified 04/07/25 14:18)
vancomycin infusion reaction 01/05/25
Medications Reviewed: Yes
Current Antibiotics:
None
Social History
Tobacco: Non-Smoker
Alcohol: None
Drug: None
Family History
Family History: Not Pertinent
Review of Systems
Review of Systems
General: Negative Fever, Chills or Change in Appetite
HEENT: Negative Sinus Problems or Headache
Cardiovascular: Negative Chest Pain or Dyspnea
Respiratory: Negative Dyspnea or Cough
Gasteroenterology: Negative Nausea or Vomiting
Genital / Urological: Negative Dysuria or Flank Pain
Endocrine: Negative Weakness
All systems: All other systems were reviewed and were negative
Vital Signs
Temp Pulse Resp BP Pulse Ox
98.6 F 51 14 137/71 97
04/08/25 07:00 04/08/25 07:00 04/08/25 07:00 04/08/25 07:00 04/08/25 07:00
Physical Exam
Physical Exam
Constitutional: No Acute Distress and Comfortable
Eyes: No Conjunctival Hemorrhage and Sclera Anicteric
Cardiovascular: Regular Rate and S1/S2
Pulmonary: Clear
Gastrointestinal: Soft, Non Tender and Non Distended
Genito-Urinary: Negative CVA Tenderness
Extremities: Negative Edema
Neurological: AO x 3
Lab / Diagnostic Study Results
04/08/25 07:01
04/08/25 07:01
Abs Immat Gran (auto) 0.1 10^3/uL (0-0.05) H 04/07/25 14:44
Absolute Neuts (auto) 10.7 10^3/uL (1.4-6.5) H 04/07/25 14:44
Absolute Lymphs (auto) 1.2 10^3/uL (1.2-3.4) 04/07/25 14:44
Absolute Monos (auto) 1.2 10^3/uL (0.1-0.6) H 04/07/25 14:44
Absolute Basos (auto) 0.0 10^3/uL (0-0.2) 04/07/25 14:44
Immature Gran % 0.5 % (0-0.5) 04/07/25 14:44
Neutrophils % 80.7 % (42.2-75.2) H 04/07/25 14:44
Lymphocytes % 9.3 % (20.5-51.1) L 04/07/25 14:44
Monocytes % 9.2 % (1.7-9.3) 04/07/25 14:44
Eosinophils % 0.1 % (0-6) 04/07/25 14:44
Basophils % 0.2 % (0-2) 04/07/25 14:44
Urine WBC 6-10 /HPF (0-5) A 04/07/25 14:38
Ur Squamous Epith Cells >30 /LPF (Few) 04/07/25 14:38
Microbiology Results
04/07/25 CT a/p: CT findings suggesting a mild enteritis with slightly prominent fluid-filled loops of small bowel noted in the abdomen.
Assessment / Plan
# Diarrhea x 3 weeks, now resolved since admission.
- CT: mild enteritis.
- No indication for abx.
ID will sign off. Call prn.
[2025-04-08] MEDS: NOVOLOG FLEXPEN-LOW RESISTANCE 2 UNITS SC ×2 (11:54→17:03)
--- NOTE | 2025-04-08 12:27 | W.PN.HOSP.TC ---
Today's Communication/Plan
-
monitor vitals
see plan
Stool studies if able
gentle hydration
clears for now
consider GI if symptoms do not imporve
Assessment / Plan
Assessment / Plan
General: Well Developed, Well Nourished and No Apparent Distress
HEENT: NormoCephalic, Moist mucous membranes and Atraumatic
Respiratory: Clear
Cardiac: S1/S2 and Regular Rhythm; No Murmur or Rub
GI: Soft, Non Tender, Non Distended and Normal Bowel Sounds
Musculoskeletal: No Edema
Neuro: Nonfocal/grossly intact
Chronic Diarrhea flare with associated weakness
RA/Psoriatic arthritis on Ixekizumab
Immunosuppression
On chr PO prednisone
Nl LFTs
- 01/06/25 NEG CMV viral load on serum - to consider require tissue biopsy for confirmation if diarrhea persists
- would typically be screened for TB prior to initiation
- stool culture and C Diff if able but doubt this is cdiff
ID evaluation
consider GI if symptoms do not improve. Potential colonoscopy outpatient
CT abdomen with enteritis, suspect could be possible viral
cw clears for now
DMT2
- hold home metformin
- low dose ISS
- Hgb A1c 7
HX CVA
HX TBI
- continue aspirin + statin
- continue donepezil
RA/Psoriatic Arthritis
- on chronic home prednisone
-lidocaine patches
-pain control
DVT Px:LMWH
Full code
Anticipated Discharge: Within 24 hours
Subjective/Interval History
-
Date of Service: April 08, 2025
denies pain
Objective Data
-
Labs:
Laboratory Results
04/08/25
07:01
WBC 10.4
Hgb 10.4 L
Hct 32.0 L
Plt Count 287
Sodium 139
Potassium 4.3
Chloride 110 H
Carbon Dioxide 27
BUN 19 H
Creatinine 0.7
Glucose 137 H
Calcium 8.9
Vital Signs:
Vital Signs
Temp Pulse Resp BP Pulse Ox
98.6 F 51 14 137/71 97
04/08/25 07:00 04/08/25 07:00 04/08/25 07:00 04/08/25 07:00 04/08/25 07:00
I&O
04/07/25 04/08/25 04/09/25
06:59 06:59 06:59
Intake Total 460 / 460
Output Total 500 / 500
Balance -40 / -40
--- NOTE | 2025-04-08 13:00 | CM ---
Patient seen bedside.
IA completed.
Patient lives with spouse in a 1 story home with 1 step to enter.
Patient has [facility] 4 x per week for approx 4 hours per day.
Patient has had [facility] in the past and would like them again if VN services are needed.
Patient ambulates with a cane.
PCP: Dr Yareli Mckeon
Pharmacy: [facility] on [facility]
Plan: home with resumption of [facility], possible VN
[2025-04-08 15:36] VITALS: BP 144/80; PULSE 67
[2025-04-08 16:27] VITALS: BP 118/76
[2025-04-08] MEDS: NORCO 7.5/325 1 TABLET PO (16:38)
[2025-04-08 16:59] LABS: Glucose - Point of Care 218 mg/dl (70-99)
[2025-04-08] MEDS: LOVENOX 40 MG SC (17:03)
[2025-04-08] MEDS: LIPITOR 80 MG PO (17:04)
[2025-04-08] MEDS: NEURONTIN 400 MG PO (19:42)
[2025-04-08] MEDS: ARICEPT 10 MG PO (21:05)
[2025-04-08 21:22] LABS: Glucose - Point of Care 134 mg/dl (70-99)
[2025-04-08 23:00] VITALS: BP 129/64
[2025-04-09] MEDS: NSS 1000 IV (02:43)
[2025-04-09 07:00] VITALS: BP 114/77
[2025-04-09 07:08] LABS: Glucose - Point of Care 153 mg/dl (70-99)
[2025-04-09 08:16] LABS: Hematocrit 35.1 % (37.0-47.0); Hemoglobin 11.4 g/dL (12.0-16.0); Mean Corp Hgb Conc. 32.5 g/dL (33.0-37.0); Mean Corpuscular Volume 91.4 fL (81.0-99.0); Nucleated Red Blood Cells % 0 %; Platelet Count 314 10^3/uL (130-400); Red Cell Dist. Width 12.8 % (11.5-14.5)
[2025-04-09 09:24] LABS: ALT (SGPT) 14 U/L (0-35); AST (SGOT) 18 U/L (14-36); Albumin 3.8 g/dl (3.5-5.0); Alkaline Phosphatase 43 U/L (38-126); Blood Urea Nitrogen 13 mg/dl (7-17); Calcium 9.4 mg/dl (8.4-10.2); Carbon Dioxide 25 mmol/L (22-30); Chloride 110 mmol/L (98-107); Estimated Creatinine Clearance 77 ml/min; Glucose 118 mg/dl (70-99); Potassium 4.1 mmol/L (3.5-5.1); Sodium 140 mmol/L (135-145); Total Protein 6.1 g/dl (6.3-8.2); eGFR > 60.00
[2025-04-09] MEDS: ASPIR LOW (ENTERIC COATED) 81 MG PO (09:48)
[2025-04-09] MEDS: NEURONTIN 400 MG PO (09:48)
[2025-04-09] MEDS: DELTASONE 10 MG PO (09:48)
[2025-04-09] MEDS: NOVOLOG FLEXPEN-LOW RESISTANCE 1 UNITS SC (09:50)
[2025-04-09] MEDS: NORCO 7.5/325 1 TABLET PO (10:01)
[2025-04-09 11:37] LABS: Glucose - Point of Care 136 mg/dl (70-99)
--- NOTE | 2025-04-09 11:55 | W.PN.HOSP.TC ---
Today's Communication/Plan
-
Monitor vital signs
see plan
Advance diet to low residue and discharge
Patient to follow-up with GI outpatient
Time of discharge 36 minutes
Assessment / Plan
Assessment / Plan
General: Well Developed, Well Nourished and No Apparent Distress
HEENT: NormoCephalic, Moist mucous membranes and Atraumatic
Respiratory: Clear
Cardiac: S1/S2 and Regular Rhythm; No Murmur or Rub
GI: Soft, Non Tender, Non Distended and Normal Bowel Sounds
Musculoskeletal: No Edema
Neuro: Nonfocal/grossly intact
Acute on chronic Diarrhea flare with associated weakness
RA/Psoriatic arthritis on Ixekizumab
Immunosuppression
On chr PO prednisone
Nl LFTs
- 01/06/25 NEG CMV viral load on serum - to consider require tissue biopsy for confirmation if diarrhea persists
- would typically be screened for TB prior to initiation
- stool culture and C Diff if able but doubt this is cdiff. No further diarrhea
ID signed off, monitor off antibiotic
consider GI if symptoms do not improve. Potential colonoscopy outpatient. It appears that diarrhea appears to be improving. Appears likely secondary to viral enteritis
CT abdomen with enteritis
Advance diet to low risk, discharge today
DMT2
- hold home metformin
- low dose ISS
- Hgb A1c 7
HX CVA
HX TBI
- continue aspirin + statin
- continue donepezil
RA/Psoriatic Arthritis
- on chronic home prednisone
-lidocaine patches
-pain control
DVT Px:LMWH
Full code
Anticipated Discharge: Today
Subjective/Interval History
-
Date of Service: April 09, 2025
Denies pain
Objective Data
-
Labs:
Laboratory Results
04/09/25
07:37
WBC 10.6
Hgb 11.4 L
Hct 35.1 L
Plt Count 314
Sodium 140
Potassium 4.1
Chloride 110 H
Carbon Dioxide 25
BUN 13
Creatinine 0.7
Glucose 118 H
Calcium 9.4
Total Bilirubin 1.0
AST 18
ALT 14
Alkaline Phosphatase 43
Vital Signs:
Vital Signs
Temp Pulse Resp BP Pulse Ox
98.1 F 58 12 114/77 100
04/09/25 07:00 04/09/25 07:00 04/09/25 07:00 04/09/25 07:00 04/09/25 07:00
I&O
04/08/25 04/09/25 04/10/25
06:59 06:59 06:59
Intake Total 460 / 460 2240 / 2240
Output Total 500 / 500 700 / 700
Balance -40 / -40 1540 / 1540
--- NOTE | 2025-04-09 11:59 | W.DCSUMMARY ---
Discharge Summary
Discharge Data
Date of Admission: 04/07/25
Date of Discharge: 04/09/25
-
Pending Results: No
Hospital Course
69-year-old female with past medical history of rheumatoid arthritis, psoriatic arthritis, chronic diarrhea, CVA, traumatic brain injury, diabetes mellitus, on chronic prednisone came to the hospital with acute on chronic diarrhea flare with
associated weakness. CT scan was consistent with enteritis. Patient was seen by infectious disease who recommended to monitor patient off antibiotics. Patient diarrhea continues to improve on its own. Patient did require IV fluids while she was
hospitalized. Since patient symptoms were improving she was instructed to follow-up with GI closely outpatient. It was determined that patient enteritis could be likely secondary to viral in nature. Since patient symptoms were improving and she
was able to tolerate diet, she was then discharged home with instructions to follow-up with all her physicians outpatient.
Discharge Plan
-
Patient Disposition: Home (Routine Discharge)
Discharge Diagnosis/Procedures: Acute on chronic diarrhea
Enteritis
Condition: Fair
Diet: Low Residue
Activity: As tolerated
Driving Restrictions: As prior to admission
Bathing Restrictions: None
Activity Restrictions/Additional Instructions:
Follow-up with gastroenterology outpatient
Referrals:
Yareli Mckeon PA-C [Family Provider, [facility]] - in less than 1 week
Prescriptions:
Continued
metformin 500 mg Tablet
500 mg PO QPM
atorvastatin 80 mg Tablet
80 mg PO QPM
gabapentin 400 mg Capsule
400 mg PO BID
aspirin 81 mg Tablet,Delayed Release (Dr/Ec)
81 mg PO DAILY
metformin 500 mg tablet
1,000 mg PO DAILY
hydrocodone-acetaminophen 10-325 mg Tablet
1 tab PO Q6HPRN PRN (Reason: SEVERE PAINS)
memantine 5 mg Tablet
10 mg PO DIRECTED
Rx Instructions:
starting 12/28/24 take one tablet qpm for 1 week, then 1 tablet bid for 1 week then 1 tablet am and 2 tabs qpm for 1 week then 2 tabs bid
prednisone 10 mg Tablet
10 mg PO DAILY
donepezil [Aricept] 10 mg Tablet
10 mg PO HS
cyanocobalamin (vitamin B-12) 1,000 mcg Tablet
1,000 mcg PO DAILY
calcium carbonate [Calcium 600] 600 mg calcium (1,500 mg) Tablet
600 mg PO DAILY
ferrous sulfate 325 mg (65 mg iron) Tablet
325 mg PO QPM
cholecalciferol (vitamin D3) [Vitamin D3] 25 mcg (1,000 unit) Tablet
25 mcg PO DAILY
Boswellia samanta extract 307 mg Tablet
250 mg PO DAILY
Patient Comments:
Please hold medication until cleared.
Rx Instructions:
hold for now
Taltz Syringe 80 mg/mL Syringe
80 mg SC MONTHLY
Rx Instructions:
pt already took this month
lidocaine 4 % Adhesive Patch,Medicated
2 patch topical DAILY Qty: 15 0RF
Rx Instructions:
1 each knee
Discharge Orders:
Discharge Patient (As Directed); Ordered 04/09/25
Ordered By: Ricardo Robertson
Discharge Date and Time
Discharge Date/Time: 04/09/25 14:51
Print Language: BULGARIAN
--- NOTE | 2025-04-09 12:31 | CM ---
Chart reviewed. Patient will d/c today
Patient is current w/ [facility] per patient only [facility] service
Therapy rec home PT, patient agreeable to [facility]. Referral placed in [facility]
Spoke w/ daughter, requesting either she or spouse to be called to initiate first HC visit
Plan: Home w/ [facility]
[2025-04-09] MEDS: NOVOLOG FLEXPEN-LOW RESISTANCE SC (12:52)
[2025-04-09 12:59] VITALS: BP 129/75
== END 2025-04-09 14:51 | disposition home or self-care (01) ==
LOC: 4 WEST ACU 23:17
PROVIDERS: ADMITTING PHYSICIAN Internal Medicine; ATTENDING PHYSICIAN Internal Medicine; EMERGENCY PHYSICIAN Emergency Medicine; FAMILY PHYSICIAN Physician Assistant Medical; OTHER PHYSICIAN Internal Medicine Infectious Disease
DX: K52.9 Noninfective gastroenteritis and colitis, unspecified (principal); R10.9 Unspecified abdominal pain; R53.83 Other fatigue; R53.1 Weakness; E78.00 Pure hypercholesterolemia, unspecified; I10 Essential (primary) hypertension; J45.909 Unspecified asthma, uncomplicated; F32.9 Major depressive disorder, single episode, unspecified; M06.9 Rheumatoid arthritis, unspecified; E11.9 Type 2 diabetes mellitus without complications; L40.50 Arthropathic psoriasis, unspecified; D84.821 Immunodeficiency due to drugs; K76.0 Fatty (change of) liver, not elsewhere classified; M17.0 Bilateral primary osteoarthritis of knee; M21.372 Foot drop, left foot; G62.9 Polyneuropathy, unspecified; G31.84 Mild cognitive impairment of uncertain or unknown etiology; N39.41 Urge incontinence; Z90.11 Acquired absence of right breast and nipple; Z87.891 Personal history of nicotine dependence; Z83.3 Family history of diabetes mellitus; Z85.3 Personal history of malignant neoplasm of breast; Z86.73 Personal history of transient ischemic attack (TIA), and cerebral infarction without residual deficits; Z79.84 Long term (current) use of oral hypoglycemic drugs; Z79.82 Long term (current) use of aspirin; Z79.52 Long term (current) use of systemic steroids; Z87.820 Personal history of traumatic brain injury; Z88.1 Allergy status to other antibiotic agents
CPT/HCPCS: 74177; 80048; 80053; 81003; 81015; 82962; 83036; 83690; 83735; 85025; 85027; 96361; 96374; 97162; 99284; G0378; Q9967

== ENCOUNTER → 2025-04-11 11:30 | Outpatient (REF) | payer OTHER, SELFPAY | LOC: RAD 11:30 | PROVIDERS: ATTENDING PHYSICIAN Physician Assistant Medical | DX: M85.89 Other specified disorders of bone density and structure, multiple sites (principal) | CPT/HCPCS: 77080 ==

== ENCOUNTER 2025-07-19 10:00 | Outpatient (RCR) | payer OTHER, SELFPAY | END 2025-07-19 23:59 | disposition home or self-care (01) | LOC: ROT 10:00 | PROVIDERS: ATTENDING PHYSICIAN Physician Assistant Medical | DX: Z47.89 Encounter for other orthopedic aftercare (principal); Z98.890 Other specified postprocedural states (principal); M79.641 Pain in right hand; M62.81 Muscle weakness (generalized); Z73.6 Limitation of activities due to disability | CPT/HCPCS: 97110; 97166; 97535 ==

== ENCOUNTER → 2025-07-28 12:52 | Outpatient (REF) | payer OTHER, SELFPAY | LOC: PAVMRI 12:52 | PROVIDERS: ATTENDING PHYSICIAN Specialist; FAMILY PHYSICIAN Physician Assistant Medical | DX: F01.50 Vascular dementia, unspecified severity, without behavioral disturbance, psychotic disturbance, mood disturbance, and anxiety (principal); G31.84 Mild cognitive impairment of uncertain or unknown etiology | CPT/HCPCS: 70553; A9575 ==

== ENCOUNTER 2025-08-04 06:23 | Day surgery (SDC) | payer OTHER, SELFPAY ==
[2025-08-04 10:10] LABS: Glucose - Point of Care 138 mg/dl (70-99)
== END 2025-08-04 11:54 | disposition home or self-care (01) ==
LOC: GI 06:23
PROVIDERS: ATTENDING PHYSICIAN Internal Medicine
DX: Z12.11 Encounter for screening for malignant neoplasm of colon (principal); Z80.0 Family history of malignant neoplasm of digestive organs; D50.9 Iron deficiency anemia, unspecified; K57.30 Diverticulosis of large intestine without perforation or abscess without bleeding; K64.8 Other hemorrhoids; K58.0 Irritable bowel syndrome with diarrhea; R63.4 Abnormal weight loss; R93.3 Abnormal findings on diagnostic imaging of other parts of digestive tract; K22.89 Other specified disease of esophagus; K44.9 Diaphragmatic hernia without obstruction or gangrene; K31.7 Polyp of stomach and duodenum; K29.70 Gastritis, unspecified, without bleeding; D12.3 Benign neoplasm of transverse colon; D12.4 Benign neoplasm of descending colon
CPT/HCPCS: 45385; 45380; 43239; 82962; 88305; 88342

== ENCOUNTER 2025-08-24 12:36 | Outpatient (RCR) | payer OTHER, SELFPAY | END 2025-08-24 23:59 | disposition home or self-care (01) | LOC: RPT 12:36 | PROVIDERS: ATTENDING PHYSICIAN Physician Assistant Medical | DX: R26.89 Other abnormalities of gait and mobility (principal); R53.1 Weakness; Z73.6 Limitation of activities due to disability; R26.2 Difficulty in walking, not elsewhere classified | CPT/HCPCS: 97010; 97110; 97112; 97162 ==